=== PATIENT | male | born 1965 | race Caucasian/White ===

== ENCOUNTER 2022-05-30 10:46 | Inpatient (IN) ==
--- NOTE | 2022-05-30 11:32 | Emergency Department Note ---
Impression & Plan Acute HFrEF (heart failure with reduced ejection fraction), Cardiomyopathy ED Provider Note Name: BREE GARCIA Age: 57 Sex: M Arrives Via: Walk-In Informant: Patient, Brother ED Provider: Juan Robledo MD Chief Complaint: Fluid overload Impression: As per impressions above Medical Decision Making: Pleasant 57-year-old gentleman with a history of autism and no real significant past medical issues who was seen by PCP and then by cardiology who has significant concerns for acute cardiomyopathy with congestive heart failure. Echo was done prior to arrival by cards. They sent him to the ER for evaluation of hospitalization. Patient is in no distress his vitals are okay and he is not having any significant shortness of breath while sitting in bed. Is slightly fluid overloaded by examination. Patient has no history of PE or DVT and has no calf pain or swelling or reason to suspect this is PE related. Hospitalist in to see patient and patient stable throughout. Prior Medical Record and Triage/Nursing Notes reviewed by Me External chart review of outpatient records including recent holiday detector operator appointment reviewed by me Differentials:CHF, cardiomyopathy, pneumonia, electrolyte imbalance, anemia, infectious etiology amongst many other pathologies considered Vital Signs: reviewed and remarkable for no significant abnormalities Interventions: Defer to hospitalist service Labs:Reviewed and remarkable for mildly elevated BNP Imagin view chest x-ray as per my interpretation mild congestive failure bilaterally with enlarged heart. EKG:As per my interpretation. Indication shortness of breath. Normal sinus rhythm at 72 bpm with a QTc of 431. There are no ectopy no ischemia. No previous EKG to compare Cardiac/Tele Monitoring: Cardiac Monitoring: An Order was placed for continuous cardiac monitoring. The monitor shows a rate of 70 with a normal sinus rhythm. Consults:Hospitalist Plan: Disposition:Hospitalization. Condition: Good History of Present Illness:57-year-old gentleman arrives for evaluation of fluid overload. Patient has not been following with a provider for quite some time he was seen by PCP who referred him to holiday detector operator due to worsening swelling. He was seen by cardiology this morning and advised to emergently go to ER for evaluation. Concern for severe fluid overload and holiday detector operator have requested patient be admitted for work-up and management. Patient notes he was sick a few days ago and feeling pretty ill but has resolved. He gets short of breath with exertion and sometimes short of breath when he is lying flat. Has not been taking any medications. He was just prescribed a Lasix which he did take this morning after picking it up. Denies any chest pain, syncope, abdominal pain, back pain or other concerning signs or symptoms. No cardiac history but does have a family cardiac history. Past History:Autism Home Medications:Was just prescribed Lasix and lisinopril and potassium Allergies:No known drug allergies Vitals:Blood Pressure: 135/84, Pulse 86, RR 20, T 36.5C, O2 96% on RA Physical Exam: GENERAL: Patient is tired appearing and in minimal distress. EYES: No scleral icterus, unremarkable pupils. ENT: Mucous membranes moist, no nasal congestion. NECK: No masses appreciated, nomeningismus, trachea is midline. RESPIRATORY: No dyspnea. Clear to auscultation and equal bilaterally. No wheeze, no rhonchi. CARDIOVASCULAR: Regular rate and rhythm.No murmurs, rubs, gallops appreciated. GASTROINTESTINAL: Abdomen soft, non-tender, no peritonitis. EXTREMITIES: Normal motion all extremities, no cyanosis, 2+ edema. NEUROLOGIC: Alert and oriented, no acute motor or sensory deficits, no focal weakness, cranial nerves grossly intact. SKIN: No rash, no jaundice, no diaphoresis. PSYCH: Appropriate GCS: 15 ED Course: Times/Reassessments: Stable no distress breathing comfortably and agreeable to plan for hospitalization. Juan Robledo MD Past Med/Surg History Medical History No pertinent past medical history Surgical History No pertinent past surgical history Family History Other Coronary heart disease Hx of heart bypass surgery Social History Smoking Status: Never smoker Second Hand Exposure: No; Do You Dip or Chew Tobacco: No; Tobacco Cessation Education Requested by Patient: No Hx Alcohol Use: No Hx Substance Use: No Preferred Language: Zambian Communication Ability: Effective Instrument Lens Generator Required: No Beliefs That Will Affect Care: None marital status: Current Living Situation: Family Other Information That Helps Us Care for You: No Feels Safe at Home: Yes Safety Concerns: Feels Safe At This Time Assistive Devices: Glasses Allergies Allergies Allergy/AdvReac Type Severity Reaction Status Date / Time No Known Allergies Allergy Verified 05/30/22 11:55 Home Meds Home Medications Medication Instructions Recorded Confirmed furosemide 20 mg tablet (Lasix) 20 mg PO QAM 05/30/22 05/30/22 lisinopril 2.5 mg tablet 2.5 mg PO QAM 05/30/22 05/30/22 potassium chloride 10 mEq 10 meq PO QAM 05/30/22 05/30/22 tablet,extended release Results & Data (ED) Vital Signs Vital Signs - 24 hr 05/30/22 10:49 05/30/22 11:55 Temperature 36.5 C Temperature Source Skin Pulse Rate 86 Pulse Rate [Apical] 77 Respiratory Rate 20 22 Respiratory Effort / Characteristics Non-Labored Spontaneous Respiratory Depth Normal Respiratory Pattern Regular Blood Pressure 135/84 Blood Pressure [Left Arm] 138/86 Blood Pressure Mean 101 Blood Pressure Mean [Left Arm] 103 Pulse Oximetry 96 94 Oxygen Delivery Method Room Air Room Air Sepsis Recent Fever Within 48 Hours No Sepsis New/Unexplained Change in Mental Status N/A Sepsis Action Taken by Nursing No Action Required Laboratory Data 05/30/22 11:34 05/30/22 11:34 Lab Results 05/30/22 05/30/22 05/30/22 Range/Units 11:30 11:30 11:34 WBC 8.17 (4.8-10.8) K/ul RBC 5.13 (4.70-6.10) M/uL Hgb 14.1 (14.0-18.0) g/dl Hct 41.4 L (42.0-52.0) % MCV 80.7 (80.0-100.0) fL MCH 27.5 (25.0-34.0) pg MCHC 34.1 (32.0-36.0) g/dL RDW Std Deviation 39.6 (36.4-46.3) fL RDW Coeff of Junito 13.5 (11.5-14.5) % Plt Count 289 (130-400) K/uL MPV 8.9 L (9.4-12.4) fL Immature Gran % (Auto) 0.4 % Neut % (Auto) 54.2 % Lymph % (Auto) 31.1 % Wheeler % (Auto) 9.8 % Eos % (Auto) 4.0 % Baso % (Auto) 0.5 % Neut # (Auto) 4.43 (1.40-6.50) K/uL Lymph # (Auto) 2.54 (1.2-3.4) K/uL Wheeler # (Auto) 0.80 H (0.11-0.59) K/uL Eos # (Auto) 0.33 (0-0.50) K/uL Baso # (Auto) 0.04 (0-0.2) K/uL Immature Gran # (Auto) 0.03 (0.01-0.20) K/uL PT (9.0-12.0) Seconds INR (0.9-1.1) APTT (21.0-31.0) Seconds PTT Ratio Sodium (136-145) mmol/L Potassium (3.5-5.1) mmol/L Chloride (98-107) mmol/L Carbon Dioxide (21-32) mmol/L Anion Gap (3-11) BUN (6-23) mg/dl Creatinine (0.6-1.4) mg/dl Est Cr Clr Drug Dosing ml/min Est GFR ( Amer) ml/min Est GFR (Non-Af Amer) ml/min BUN/Creatinine Ratio (10-20) Glucose (70-99(Fasting)) mg/dl Calcium (8.6-10.3) mg/dl Phosphorus (2.5-4.9) mg/dl Magnesium (1.7-2.4) mg/dl Total Bilirubin (0.2-1.0) mg/dl Direct Bilirubin (0-0.2) mg/dl AST (13-39) U/L ALT (7-52) U/L Alkaline Phosphatase (34-104) U/L Troponin I High Sens (0-20) pg/ml B-Natriuretic Peptide (0-100) pg/ml Total Protein (6.0-8.3) gm/dl Albumin (3.4-5.0) gm/dl Lipase (11-82) U/L TSH (0.300-4.500) uIu/ml Urine Color Yellow Urine Appearance Clear (Clear) Urine pH 5.0 (4.5-7.5) Ur Specific [place] 1.012 (1.000-1.030) Urine Protein Negative (Negative) Urine Glucose (UA) Negative (Negative) Urine Ketones Negative (Negative) Urine Blood Negative (Negative) Urine Nitrite Negative (Negative) Urine Bilirubin Negative (Negative) Urine Urobilinogen Negative (Negative) Ur Leukocyte Esterase Negative (Negative) SARS-CoV-2 (PCR) NEGATIVE (Negative) Influenza Type A (PCR) Negative (Neg) Influenza Type B (PCR) Negative (Neg) RSV (RT-PCR) Negative (Neg) 05/30/22 05/30/22 05/30/22 Range/Units 11:34 11:34 11:34 WBC (4.8-10.8) K/ul RBC (4.70-6.10) M/uL Hgb (14.0-18.0) g/dl Hct (42.0-52.0) % MCV (80.0-100.0) fL MCH (25.0-34.0) pg MCHC (32.0-36.0) g/dL RDW Std Deviation (36.4-46.3) fL RDW Coeff of Junito (11.5-14.5) % Plt Count (130-400) K/uL MPV (9.4-12.4) fL Immature Gran % (Auto) % Neut % (Auto) % Lymph % (Auto) % Wheeler % (Auto) % Eos % (Auto) % Baso % (Auto) % Neut # (Auto) (1.40-6.50) K/uL Lymph # (Auto) (1.2-3.4) K/uL Wheeler # (Auto) (0.11-0.59) K/uL Eos # (Auto) (0-0.50) K/uL Baso # (Auto) (0-0.2) K/uL Immature Gran # (Auto) (0.01-0.20) K/uL PT 11.1 (9.0-12.0) Seconds INR 1.0 (0.9-1.1) APTT 32.5 H (21.0-31.0) Seconds PTT Ratio 1.2 Sodium 135 L (136-145) mmol/L Potassium 3.9 (3.5-5.1) mmol/L Chloride 105 (98-107) mmol/L Carbon Dioxide 22 (21-32) mmol/L Anion Gap 8 (3-11) BUN 16 (6-23) mg/dl Creatinine 1.20 (0.6-1.4) mg/dl Est Cr Clr Drug Dosing 85.6 ml/min Est GFR ( Amer) 76.8 ml/min Est GFR (Non-Af Amer) 66.3 ml/min BUN/Creatinine Ratio 13.3 (10-20) Glucose 116 H (70-99(Fasting)) mg/dl Calcium 9.1 (8.6-10.3) mg/dl Phosphorus 3.3 (2.5-4.9) mg/dl Magnesium 2.0 (1.7-2.4) mg/dl Total Bilirubin 0.4 (0.2-1.0) mg/dl Direct Bilirubin 0.1 (0-0.2) mg/dl AST 19 (13-39) U/L ALT 19 (7-52) U/L Alkaline Phosphatase 74 (34-104) U/L Troponin I High Sens 7.2 (0-20) pg/ml B-Natriuretic Peptide 34 (0-100) pg/ml Total Protein 7.4 (6.0-8.3) gm/dl Albumin 4.2 (3.4-5.0) gm/dl Lipase 29 (11-82) U/L TSH (0.300-4.500) uIu/ml Urine Color Urine Appearance (Clear) Urine pH (4.5-7.5) Ur Specific [place] (1.000-1.030) Urine Protein (Negative) Urine Glucose (UA) (Negative) Urine Ketones (Negative) Urine Blood (Negative) Urine Nitrite (Negative) Urine Bilirubin (Negative) Urine Urobilinogen (Negative) Ur Leukocyte Esterase (Negative) SARS-CoV-2 (PCR) (Negative) Influenza Type A (PCR) (Neg) Influenza Type B (PCR) (Neg) RSV (RT-PCR) (Neg) 05/30/22 Range/Units 11:34 WBC (4.8-10.8) K/ul RBC (4.70-6.10) M/uL Hgb (14.0-18.0) g/dl Hct (42.0-52.0) % MCV (80.0-100.0) fL MCH (25.0-34.0) pg MCHC (32.0-36.0) g/dL RDW Std Deviation (36.4-46.3) fL RDW Coeff of Junito (11.5-14.5) % Plt Count (130-400) K/uL MPV (9.4-12.4) fL Immature Gran % (Auto) % Neut % (Auto) % Lymph % (Auto) % Wheeler % (Auto) % Eos % (Auto) % Baso % (Auto) % Neut # (Auto) (1.40-6.50) K/uL Lymph # (Auto) (1.2-3.4) K/uL Wheeler # (Auto) (0.11-0.59) K/uL Eos # (Auto) (0-0.50) K/uL Baso # (Auto) (0-0.2) K/uL Immature Gran # (Auto) (0.01-0.20) K/uL PT (9.0-12.0) Seconds INR (0.9-1.1) APTT (21.0-31.0) Seconds PTT Ratio Sodium (136-145) mmol/L Potassium (3.5-5.1) mmol/L Chloride (98-107) mmol/L Carbon Dioxide (21-32) mmol/L Anion Gap (3-11) BUN (6-23) mg/dl Creatinine (0.6-1.4) mg/dl Est Cr Clr Drug Dosing ml/min Est GFR ( Amer) ml/min Est GFR (Non-Af Amer) ml/min BUN/Creatinine Ratio (10-20) Glucose (70-99(Fasting)) mg/dl Calcium (8.6-10.3) mg/dl Phosphorus (2.5-4.9) mg/dl Magnesium (1.7-2.4) mg/dl Total Bilirubin (0.2-1.0) mg/dl Direct Bilirubin (0-0.2) mg/dl AST (13-39) U/L ALT (7-52) U/L Alkaline Phosphatase (34-104) U/L Troponin I High Sens (0-20) pg/ml B-Natriuretic Peptide (0-100) pg/ml Total Protein (6.0-8.3) gm/dl Albumin (3.4-5.0) gm/dl Lipase (11-82) U/L TSH 2.528 (0.300-4.500) uIu/ml Urine Color Urine Appearance (Clear) Urine pH (4.5-7.5) Ur Specific [place] (1.000-1.030) Urine Protein (Negative) Urine Glucose (UA) (Negative) Urine Ketones (Negative) Urine Blood (Negative) Urine Nitrite (Negative) Urine Bilirubin (Negative) Urine Urobilinogen (Negative) Ur Leukocyte Esterase (Negative) SARS-CoV-2 (PCR) (Negative) Influenza Type A (PCR) (Neg) Influenza Type B (PCR) (Neg) RSV (RT-PCR) (Neg) Administered Medications Aspirin (Aspirin 81 Mg Ectab) 81 mg PO [facility] Stop: 06/30/22 10:29 Last Admin: 05/31/22 10:42 Dose: 81 mg Documented By: JANET Furosemide (Furosemide 40 Mg/4 Ml Vial) 40 mg IV DAILY [facility] Stop: 06/30/22 08:59 Last Admin: 05/31/22 08:41 Dose: 40 mg Documented By: JANET Heparin Sodium (Porcine) (Heparin Sod 5,000 Unit/0.5 Ml Vial) 5,000 units SQ Q8 [facility] Stop: 06/29/22 13:59 Last Admin: 05/31/22 13:20 Dose: Not Given Documented By: Admin: 05/31/22 06:13 Dose: 5,000 units Documented By: Admin: 05/30/22 21:11 Dose: 5,000 units Documented By: Admin: 05/30/22 14:30 Dose: 5,000 units Documented By: DAVID Lisinopril (Lisinopril 2.5 Mg Tab) 2.5 mg PO [facility] Stop: 06/30/22 08:59 Last Admin: 05/31/22 08:42 Dose: 2.5 mg Documented By: JANET Metoprolol Succinate (Metoprolol Succ 25mg Ext Rel Tab) 12.5 mg PO [facility] Stop: 06/30/22 10:29 Last Admin: 05/31/22 10:42 Dose: 12.5 mg Documented By: JANET Discontinued Medications Fentanyl Citrate (Fentanyl Citrate Pf 100 Mcg/2 Ml Vial) Confirm Administered Dose 100 mcg .ROUTE .[facility] Stop: 05/31/22 12:23 Last Increment: 05/31/22 13:02 Dose: 50 mcg Documented By: KARIE Furosemide (Furosemide 40 Mg/4 Ml Vial) 40 mg IV ONE ONE Stop: 05/30/22 12:40 Last Admin: 05/30/22 13:14 Dose: 40 mg Documented By: ML Furosemide (Furosemide Inj 20 Mg/2 Ml Vial) 20 mg IV DAILY@1700 [facility] Stop: 06/29/22 16:59 Last Admin: 05/30/22 16:13 Dose: 20 mg Documented By: DAVID Heparin Sodium (Porcine) (Heparin (Porcine) 1000 Unit/Ml 10 Ml (Director Print Use Only)) Confirm Administered Dose 10,000 units .ROUTE .STK-MED ONE Stop: 05/31/22 12:22 Last Admin: 05/31/22 13:01 Dose: 5,000 units Documented By: JFC Heparin Sodium/Sodium Chloride (Heparin In Nss Infusion 1000 Unit/500 Ml (2 U/Ml) Bag) Confirm Administered Dose 3,000 units IV .STK-MED ONE Stop: 05/31/22 12:23 Last Admin: 05/31/22 13:02 Dose: 3,000 units Documented By: ALMA DELIA Midazolam HCl (Midazolam Hcl 1 Mg/Ml 2ml Vial) Confirm Administered Dose 2 mg .ROUTE .STK-MED ONE Stop: 05/31/22 12:22 Last Increment: 05/31/22 13:02 Dose: 1 mg Documented By: KARIE Nicardipine HCl (Nicardipine Hcl Inj 2.5 Mg/Ml 10 Ml Amp) Confirm Administered Dose 25 mg .ROUTE .STK-MED ONE Stop: 05/31/22 12:22 Last Admin: 05/31/22 13:02 Dose: 25 mg Documented By: ALMA DELIA Nitroglycerin/Dextrose (Nitroglycerin/D5w 100mcg/Ml 20ml Syr) Confirm Administered Dose 2,000 mcg .ROUTE .STK-MED ONE Stop: 05/31/22 12:23 Last Admin: 05/31/22 13:03 Dose: 2,000 mcg Documented By: ALMA DELIA Potassium Chloride (Potassium Chloride Crtab 20 Meq Tabcr) 20 meq PO NOW STA Stop: 05/30/22 12:40 Last Admin: 05/30/22 13:14 Dose: 20 meq Documented By: ISSA Potassium Chloride (Potassium Chloride Crtab 20 Meq Tabcr) 20 meq PO QAM [facility] Stop: 06/30/22 08:59 Last Admin: 05/31/22 08:42 Dose: 20 meq Documented By: LDS Imaging Data Radiologist's Impression: Chest X-Ray 05/30/22 11:15 SINGLE VIEW CHEST CLINICAL HISTORY: Fluid overload. FINDINGS: An AP, portable, upright chest radiograph is obtained. No prior studies are available for comparison at the time of dictation. The heart appears mildly enlarged. There is pulmonary vascular congestion. The lungs and pleural spaces are clear noting bibasilar atelectasis. No pneumothorax is seen. The skeletal structures appear osteopenic. The bony thorax is grossly intact. Arthritic change is noted in the shoulders. IMPRESSION: Mild cardiac enlargement with pulmonary vascular congestion. ACT 112: Negative or not required by law. Electronically signed by: Serge Thornton M.D. 05/30/2022 12:00 PM Discharge Plan Visit Data Chief Complaint: Abnormal Labs/Diagnostic Testing Stated Complaint: ABNORMAL TEST, DR REF OVER ED Provider: Juan Robledo Discharge Problem: Acute HFrEF (heart failure with reduced ejection fraction), Cardiomyopathy Patient Disposition: Admitted As Inpatient Discharge Instructions Interventions: ED Discharge Assessment Last Done: 05/30/22 13:35 Cardiomyopathy Qualifiers: Cardiomyopathy type: unspecified Qualified Code(s): I42.9 - Cardiomyopathy, unspecified
[2022-05-30 11:55] LABS: Hematocrit (blood only) 41.4 % (42.0-52.0); Hemoglobin 14.1 g/dl (14.0-18.0); Mean Corpuscular Hemoglobin 27.5 pg (25.0-34.0); Mean Corpuscular Hgb Conc 34.1 g/dL (32.0-36.0); Mean Corpuscular Volume 80.7 fL (80.0-100.0); Mean Platelet Volume 8.9 fL (9.4-12.4); Platelet Count 289 K/uL (130-400); RDW Coefficient of Variation 13.5 % (11.5-14.5); RDW Standard Deviation 39.6 fL (36.4-46.3); Red Blood Count 5.13 M/uL (4.70-6.10); White Blood Count 8.17 K/ul (4.8-10.8)
--- NOTE | 2022-05-30 12:02 | XRay Report ---
SINGLE VIEW CHEST CLINICAL HISTORY: Fluid overload. FINDINGS: An AP, portable, upright chest radiograph is obtained. No prior studies are available for c omparison at the time of dictation. The heart appears mildly enlarged. There is pulmonary vascular co ngestion. The lungs and pleural spaces are clear noting bibasilar atelectasis. No pneumothorax is see n. The skeletal structures appear osteopenic. The bony thorax is grossly intact. Arthritic change is noted in the shoulders. IMPRESSION: Mild cardiac enlargement with pulmonary vascular congestion. ACT 112: Negative or not required by law. Electronically signed by: Serge Thornton M.D. 05/30/2022 12:00 PM
--- NOTE | 2022-05-30 12:13 | History & Physical Report ---
Date of Service May 30, 2022 Assessment & Plan (1) Acute HFrEF (heart failure with reduced ejection fraction): Plan This is a 57 M who presents to ED at the referral of cardiology due to new onset cardiomyopathy and acute HFrEF. He is being managed for the following conditions below: Acute HFrEF, right greater than left Cardiomyopathy Outpatient echocardiogram revealed EF 35 to 39%, global hypokinesis and mild mitral insufficiency Initially started on Lasix 20 mg daily, lisinopril 2.5 mg daily and potassium chloride 20 mEq daily, first dose today on 05/30/2022 Seen in cardiology clinic today and referred to ED for IV diuresis Admit to PCU Consult cardiology Lasix 40 mg IV x1 now and 20 mg in the afternoon Strict I's and O's, daily weights -patient educated on the Continue lisinopril, hold oral Lasix Increase daily KCl to 20 mEq daily and replete as needed N.p.o. after midnight in event procedure warranted in a.m. A1c and lipid panel in a.m. DVT prophylaxis: Heparin Dispo: Admit to PCU, patient currently living temporarily with brother in [place] Full code PCP: Miryam Pedro MD out of [place] A total of 60 minutes was spent with greater than 50% of that time personally viewing all current laboratory work and diagnostic imaging studies obtained in the ED. Additionally, I was able to view the patients past medication reconciliation and history with direct visualization in the patients chart. Included in the time above, a portion of that time was spent assessing the patient while discussing and collaborating with specialists, if necessary, and making medical decision making on treatment plan. All of the above was collaborated with Dr. Ramos. Please see addendum for further details. [phone] Brother Davon History of Present Illness Chief Complaint: Referred by cardiology. Primary Care Provider: Miryam Pedro MD This is a 57 yr old M who has no significant PMH prior to most recent appointments who presents to ED at the referral of cardiology. He was recently seen by PCP this month due to increased weight gain, sob and abdominal distension. He recently relocated from [place] to live with his brother in [place]. Lab work was performed and an echocardiogram. Echocardiogram reviewed new cardiomyopathy with EF of 35-39% and global hypokinesis. His labwork reviewed cr of 1.2 and mildly elevated TSH. He was starting on lasix 20mg and lisinopril daily. First dose was today. He was referred to cardiology today who referred him to ED due to newly dx acute systolic heart failure. He complains of sniffles, scratchy throat, prob cough with yellow sputum that has since resolved two days ago. He also complains of bloating, intermittent SOB for past 3 months with exertion, and lower extremity swelling. He has gained ~ 20-25lbs. He denies, f/c/s, dizziness, lightheaded, chest pain, sob at rest, n/v/d, abd pain, change in bowel or urinary habits. He does not follow with family doctor regularly. He denies smoking of alcohol and denies excessive salt intake. He does drink mostly coffee, water, tea. +FH of CAD, both parents had CABG in 50s or 60s, one brother had a stroke and another brother currently undergoing cardiac work up. Allergies Allergy/AdvReac Type Severity Reaction Status Date / Time No Known Allergies Allergy Verified 05/30/22 11:55 Home Medications Medication Instructions Recorded Confirmed Type furosemide 20 mg tablet (Lasix) 20 mg PO QAM 05/30/22 05/30/22 History lisinopril 2.5 mg tablet 2.5 mg PO QAM 05/30/22 05/30/22 History potassium chloride 10 mEq 10 meq PO QAM 05/30/22 05/30/22 History tablet,extended release Past Med/Surg History Medical History (Updated 05/30/22 @ 13:35 by Juan Robledo MD) No pertinent past medical history Surgical History (Updated 05/30/22 @ 12:16 by Radha Hansen PA-C) No pertinent past surgical history Family History (Updated 05/30/22 @ 12:11 by Radha Hansen PA-C) Other Coronary heart disease Hx of heart bypass surgery Social History (Updated 05/30/22 @ 12:11 by Radha Hansen PA-C) Smoking Status: Never smoker Second Hand Exposure: No; Do You Dip or Chew Tobacco: No; Tobacco Cessation Education Requested by Patient: No Hx Alcohol Use: No Hx Substance Use: No Preferred Language: South [place]ese Communication Ability: Effective 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 Ramos addendum for physical exam findings. Results & Data Results & Data Vital Signs (Past 12 Hours) Vital Signs Temp Pulse Pulse Resp BP BP Pulse Ox 05/30/22 11:55 77 22 138/86 94 05/30/22 10:49 36.5 C 86 20 135/84 96 O2 Del Method 05/30/22 11:55 Room Air 05/30/22 10:49 Room Air Diagnostic Findings Chest X-Ray 05/30/22 11:15 SINGLE VIEW CHEST CLINICAL HISTORY: Fluid overload. FINDINGS: An AP, portable, upright chest radiograph is obtained. No prior studies are available for comparison at the time of dictation. The heart appears mildly enlarged. There is pulmonary vascular congestion. The lungs and pleural spaces are clear noting bibasilar atelectasis. No pneumothorax is seen. The skeletal structures appear osteopenic. The bony thorax is grossly intact. Arthritic change is noted in the shoulders. IMPRESSION: Mild cardiac enlargement with pulmonary vascular congestion. ACT 112: Negative or not required by law. Electronically signed by: Serge Thornton M.D. 05/30/2022 12:00 PM ECG Rate (beats per minute): 72 Rhythm: normal sinus Additional Comments: inferior T wave inversions III, AVF COVID-19 Results Results COVID-19 Adm Lab Results: RBC 5.13 M/uL (4.70-6.10) 05/30/22 WBC 8.17 K/ul (4.8-10.8) 05/30/22 Hgb 14.1 g/dl (14.0-18.0) 05/30/22 Hct 41.4 % (42.0-52.0) L 05/30/22 Plt Count 289 K/uL (130-400) 05/30/22 Neutrophils (%) (Auto) 54.2 % 05/30/22 Lymphocytes (%) (Auto) 31.1 % 05/30/22 Monocytes # (Auto) 0.80 K/uL (0.11-0.59) H 05/30/22 Eosinophils # (Auto) 0.33 K/uL (0-0.50) 05/30/22 Immature Granulocyte % (Auto) 0.4 % 05/30/22 Neutrophils # (Auto) 4.43 K/uL (1.40-6.50) 05/30/22 Lymphocytes # (Auto) 2.54 K/uL (1.2-3.4) 05/30/22 Monocytes # (Auto) 0.80 K/uL (0.11-0.59) H 05/30/22 Eosinophils # (Auto) 0.33 K/uL (0-0.50) 05/30/22 Basophils # (Auto) 0.04 K/uL (0-0.2) 05/30/22 Immature Granulocyte # (Auto) 0.03 K/uL (0.01-0.20) 3 Na 135 mmol/L (136-145) L 05/30/22 K 3.9 mmol/L (3.5-5.1) 05/30/22 Cl 105 mmol/L (98-107) 05/30/22 CO2 22 mmol/L (21-32) 05/30/22 Anion Gap 8 (3-11) 05/30/22 BUN 16 mg/dl (6-23) 05/30/22 Creatinine 1.20 mg/dl (0.6-1.4) 05/30/22 BUN/Creatinine Ratio 13.3 (10-20) 05/30/22 Glucose Level 116 mg/dl (70-99(Fasting)) H 05/30/22 Ca 9.1 mg/dl (8.6-10.3) 05/30/22 Phosphorus Level 3.3 mg/dl (2.5-4.9) 05/30/22 Total Bilirubin 0.4 mg/dl (0.2-1.0) 05/30/22 Direct Bilirubin 0.1 mg/dl (0-0.2) 05/30/22 AST/SGOT 19 U/L (13-39) 05/30/22 ALT/SGPT 19 U/L (7-52) 05/30/22 Alkaline Phosphatase 74 U/L (34-104) 05/30/22 Total Protein 7.4 gm/dl (6.0-8.3) 05/30/22 Albumin 4.2 gm/dl (3.4-5.0) 05/30/22 PTT 32.5 Seconds (21.0-31.0) H 05/30/22 INR 1.0 (0.9-1.1) 05/30/22 COVID-19 PCR NEGATIVE (Negative) 05/30/22 Influenza Virus Type A (PCR) Negative (Neg) 05/30/22 Influenza Virus Type B (PCR) Negative (Neg) 05/30/22 Chest X-Ray 05/30/22 Code Status & VTE Plan Code Status FULL CODE VTE Prophylaxis Plan VTE Prophylaxis will be ordered: Yes Supervising Physician Co-Signing Physician Notes 57 yo M w/ no significant PMH per OP Epic chart, no h/o [place]/stroke per pt was sent from cardio office for "fluid overload". The patient reports some sob w/ activity and intermittent abd bloating since last 3 months, progressive in nature, also reports his feet get swollen sometimes and he can't wear his shoes. Pt reports recent flu like illness that he reports he got over with already. Pt declines any tobacco smoking or use/use of alcohol or recreational drugs. Full code. Labs reviewed, CXR w/ pul vascular congestion. No pl effusion noted on my interpretation. Mild hyponatremia Acute systolic CHF: recent OP ECHO w/ EF of 35-39%. Large sized apical, septal, anteroseptal, and ant wall motion abn w/ akinesis of segments. Lasix 40 mg iv in AM, 20 mg iv in pm, KCL 20 meq today and daily for now. Strict I and O. FR 1800, Low Na diet. NPO midnight. Cardio consult. O2 prn. Hyperglycemia: will get A1C. Upon Exam GENERAL: Alert and oriented x3. NAD, on RA. HEENT: No pallor, no icterus. Pupils equal, round and reactive to light. Oral mucosa moist. NECK: No JVD, no neck masses. HEART: S1 and S2 heard. Regular rate and rhythm. No murmur, no gallop. RESPIRATORY SYSTEM: Normal AP diameter. No accessory muscle use. No wheezing, R>L basal crackles. ABDOMEN: Soft, bowel sounds present, nontender, no distention. CENTRAL NERVOUS SYSTEM: No facial droop. Speech is clear. Obeys simple commands. Moves extremities. EXTREMITIES: 1-2 + BLE edema, no erythema seen. Dry feet. I have seen and examined the patient and have discussed the case with the provider above. I agree with the assessment and plan as stated.
[2022-05-30 12:14] LABS: Partial Thromboplastin Ratio 1.2; Partial Thromboplastin Time 32.5 Seconds (21.0-31.0); Prothrombin Time 11.1 Seconds (9.0-12.0)
[2022-05-30 12:17] LABS: Albumin Level 4.2 gm/dl (3.4-5.0); Bilirubin Direct 0.1 mg/dl (0-0.2); Bilirubin,Total 0.4 mg/dl (0.2-1.0); Calcium 9.1 mg/dl (8.6-10.3); Potassium 3.9 mmol/L (3.5-5.1)
[2022-05-30 12:20] LABS: Appearance Urine Clear (Clear); Bilirubin Urine Negative (Negative); Blood Urine Negative (Negative); Color Urine Yellow; Glucose Urine UA Negative (Negative); Ketones Urine Negative (Negative); Leukocyte Esterase Urine Negative (Negative); Nitrite Urine Negative (Negative); Protein Urine Negative (Negative); Specific Gravity Urine 1.012 (1.000-1.030); Urobilinogen Urine Negative (Negative)
[2022-05-30 12:23] LABS: BUN Creatinine Ratio 13.3 (10-20); Creatinine Clr Calc Pharmacy 85.6 ml/min; Est GFR (African American) 76.8 ml/min; Est GFR (Non-African American) 66.3 ml/min; Phosphorus 3.3 mg/dl (2.5-4.9); Total Protein 7.4 gm/dl (6.0-8.3)
[2022-05-30 12:27] LABS: Troponin I High Sensitivity 7.2 pg/ml (0-20)
[2022-05-30 12:36] LABS: Basophils # (auto) 0.04 K/uL (0-0.2); Basophils % (auto) 0.5 %; Eosinophils # (auto) 0.33 K/uL (0-0.50); Immature Granulocytes # (auto) 0.03 K/uL (0.01-0.20); Immature Granulocytes % (auto) 0.4 %; Lymphocytes # (auto) 2.54 K/uL (1.2-3.4); Lymphocytes % (auto) 31.1 %; Monocytes % (auto) 9.8 %; Neutrophils # (auto) 4.43 K/uL (1.40-6.50); Neutrophils % (auto) 54.2 %
[2022-05-30] MEDS ORDERED: POTASSIUM CHLORIDE CRTAB 20 MEQ TABCR PO STA (12:39)
[2022-05-30] MEDS ORDERED: FUROSEMIDE 40 MG/4 ML VIAL IV ONE (12:39)
[2022-05-30 13:09] LABS: Influenza A virus by PCR Negative (Neg); Influenza B virus by PCR Negative (Neg); RSV by PCR Negative (Neg); SARS CoV2 RNA(COVID-19) Ceph NEGATIVE (Negative)
--- NOTE | 2022-05-30 13:53 | Electrocardiogram Report ---
Test Reason : Blood Pressure : / mmHG Vent. Rate : 072 BPM Atrial Rate : 072 BPM P-R Int : 146 ms QRS Dur : 104 ms QT Int : 394 ms P-R-T Axes : 056 -34 -14 degrees QTc Int : 431 ms Normal sinus rhythm Left axis deviation Minimal voltage criteria for LVH, may be normal variant Abnormal ECG No previous ECGs available Confirmed by Eliel Buchanan ([id number]) on 05/30/2022 1:53:19 PM Referred By: Confirmed By:Eliel Buchanan
[2022-05-30] MEDS ORDERED: ONDANSETRON INJ 2 MG/ML 2 ML VIAL IV PRN (14:00)
[2022-05-30] MEDS ORDERED: MAGNESIUM HYDROXIDE SUSP 30 ML UDC PO PRN (14:00)
[2022-05-30] MEDS ORDERED: POLYETHYLENE (MIRALAX) 17 GM PACK PO PRN (14:00)
[2022-05-30] MEDS ORDERED: ACETAMINOPHEN 325 MG TAB PO PRN (14:00)
[2022-05-30] MEDS ORDERED: ALUMINUM/MAGNESIUM SUSP 30 ML UDC PO PRN (14:00)
[2022-05-30] MEDS: HEPARIN SOD 5,000 UNIT/0.5 ML VIAL SQ SCH ×2 (14:30→21:11)
[2022-05-30] MEDS ORDERED: FUROSEMIDE INJ 20 MG/2 ML VIAL IV SCH (17:00)
[2022-05-30] MEDS ORDERED: FUROSEMIDE 20 MG TAB PO SCH (17:00)
[2022-05-31 04:41] LABS: Hematocrit (blood only) 41.7 % (42.0-52.0); Hemoglobin 14.3 g/dl (14.0-18.0); Mean Corpuscular Hemoglobin 27.7 pg (25.0-34.0); Mean Corpuscular Hgb Conc 34.3 g/dL (32.0-36.0); Mean Corpuscular Volume 80.8 fL (80.0-100.0); Mean Platelet Volume 8.9 fL (9.4-12.4); Platelet Count 285 K/uL (130-400); RDW Coefficient of Variation 13.6 % (11.5-14.5); Red Blood Count 5.16 M/uL (4.70-6.10); White Blood Count 7.81 K/ul (4.8-10.8)
[2022-05-31 04:55] LABS: Albumin Globulin Ratio 1.1 (0.9-2); BUN Creatinine Ratio 15.9 (10-20); Bilirubin,Total 0.5 mg/dl (0.2-1.0); Chol HDL Ratio 4.7 (0-5); Creatinine Clr Calc Pharmacy 82.1 ml/min; Est GFR (African American) 72.4 ml/min; Est GFR (Non-African American) 62.5 ml/min; Globulin 3.5 gm/dl (2.5-4.0); Potassium 3.6 mmol/L (3.5-5.1); Total Protein 7.5 gm/dl (6.0-8.3)
[2022-05-31 05:37] LABS: Basophils # (auto) 0.06 K/uL (0-0.2); Basophils % (auto) 0.8 %; Eosinophils # (auto) 0.43 K/uL (0-0.50); Eosinophils % (auto) 5.5 %; Immature Granulocytes # (auto) 0.03 K/uL (0.01-0.20); Immature Granulocytes % (auto) 0.4 %; Lymphocytes # (auto) 3.05 K/uL (1.2-3.4); Lymphocytes % (auto) 39.1 %; Monocytes # (auto) 0.62 K/uL (0.11-0.59); Monocytes % (auto) 7.9 %; Neutrophils # (auto) 3.62 K/uL (1.40-6.50); Neutrophils % (auto) 46.3 %
[2022-05-31] MEDS: HEPARIN SOD 5,000 UNIT/0.5 ML VIAL SQ SCH ×3 (06:13→20:59)
[2022-05-31] MEDS ORDERED: FUROSEMIDE 40 MG/4 ML VIAL IV SCH (09:00)
[2022-05-31] MEDS ORDERED: lisinopril 2.5 MG TAB PO SCH (09:00)
[2022-05-31] MEDS ORDERED: POTASSIUM CHLORIDE CRTAB 20 MEQ TABCR PO SCH (09:00)
--- NOTE | 2022-05-31 09:15 | Cardiology Consultation ---
Date of Consultation May 31, 2022 Assessment & Plan (1) Acute HFrEF (heart failure with reduced ejection fraction): (2) NYHA class 3 systolic congestive heart failure with reduced left ventricular function: (3) Electrocardiogram showing normal QRS interval: Plan New onset systolic congestive heart failure, HFrEF Etiology: Unknown, to be determined. NYHA Class III Stage C. Ejection Fraction: 35-39%. Narrow QRS duration Maintaining sinus rhythm Volume Status: Mild hypervolemia, right sided predominately. Investigate etiologies. Labs ordered. NPO for diagnostic cardiac catheterization Continue IV diuresis today, likely switching to oral furosemide in AM of 06/01/2022. Discontinue supplemental potassium. Add aldosterone receptor antagonist, spironolactone 25 mg/day Add low dose evidence based beta-olman, Toprol XL 12.5 mg/day Add ASA 81 mg/day Add statin, atorvastatin 10 mg/day Continue low dose FIOR inhibition, Lisinopril 2.5 mg/day. Supervising Physician Co-Signing Physician Notes I have reviewed the advanced practitioner documentation and agree. I saw and evaluated the patient on date of service referenced in note and have performed the following medically appropriate history and/or exam: newly discovered cardiomyopathy. Does not examine as significantly volume overloaded this AM. Will proceed with cardiac cath today. Further recommendations to follow. History of Present Illness Reason for Consultation: New cardiomyopathy, acute HFrEF Requesting Physician: Tyrone Attending Physician: Alison History of Present Illness Mr. Prosper Pollard is a 57-year-old male who was referred for hospitalization after initial cardiology consultation with Dr. Saenz on May 2022. Information is somewhat difficult to discern. Patient notes living [facility] in an apartment above a garage in [place] and working full-time without difficulty. Approximately 3 months ago he presented to the [facility] ER with low back pain. Limited evaluation was performed. Discomfort attributed to a muscle strain. Patient notes notes being referred to chiropractor with improvement. Due to increased rent as well as ER bills from the evaluation patient notes having trouble making ends meet, ultimately moving live with his brother Davon outside of [place] approximately 1 week ago. It was approximately 4 months ago the patient began to notice lower extremity peripheral edema as well as abdominal bloating. He initially thought issues were secondary to constipation, taking Metamucil without improvement. He then thought about prostate trouble and tried [id number] pills also without improvement. In mid May, patient established with the [facility]. Work-up included resting echocardiography on May 21, 2022 which revealed a dilated left ventricle with segmental wall motion abnormalities consistent with conduction changes, left bundle branch block, with otherwise global hypokinesis, moderate to severe left ventricular systolic dysfunction, ejection fraction 35 to 39%, mild mitral insufficiency. Abnormal resting echocardiography led to initiation of furosemide as well as low-dose lisinopril and cardiology consultation, all of which were initiated/obtained on May 30, 2022. Abdominal ultrasound revealed hepatic steatosis; no ascites. Chest x-ray showed no acute pulmonary abnormality. CBC and comprehensive metabolic panel were within normal limits. TSH was mildly elevated. Notes gradual weight gain of approximately 25 pounds over the last 6 months, since . Notes that his brother family had URI symptoms which he also contracted last week. Patient currently has a cough productive of phlegm, without fevers or chills. He notes having a heart murmur as a child. Inactive/sedentary. Poor exercise tolerance. Chest pressure. Dyspnea on exertion. Poor sleep habits with loud snoring noted. Denies history of CAD, NC, CHF, arrhythmia, rheumatic fever, or scarlet fever Past Medical and Surgical History: See above. Family History: Both parents underwent coronary bypass grafting, brother with mitral valve disease 2nd brother with history of stroke Social History: Nonsmoker. Prior alcohol, abstaining of late. No illegal drug use. See above. Allergies Allergy/AdvReac Type Severity Reaction Status Date / Time No Known Allergies Allergy Verified 05/30/22 11:55 Home Medications Medication Instructions Recorded Confirmed Type aspirin 81 mg tablet,delayed 81 mg PO QAM #30 tabs 06/01/22 Rx release atorvastatin 10 mg tablet 10 mg PO QAM #30 tabs 06/01/22 Rx furosemide 20 mg tablet (Lasix) 20 mg PO QAM #30 tabs 06/01/22 Rx lisinopril 2.5 mg tablet 2.5 mg PO QAM #30 tabs 06/01/22 Rx metoprolol succinate 25 mg 12.5 mg PO QAM #30 tabs 06/01/22 Rx tablet,extended release 24 hr spironolactone 25 mg tablet 12.5 mg PO QAM #30 tabs 06/01/22 Rx Patient History Medical History No pertinent past medical history Surgical History No pertinent past surgical history Family History Other Coronary heart disease Hx of heart bypass surgery Social History Smoking Status: Never smoker Second Hand Exposure: No; Do You Dip or Chew Tobacco: No; Tobacco Cessation Education Requested by Patient: No Hx Alcohol Use: No Hx Substance Use: No Preferred Language: Indonesian Communication Ability: Effective 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 See above. Otherwise negative or noncontributory. Physical Exam Physical Exam: General: A&Ox3. NAD. HENT: Normocephalic. Atraumatic. Eyes: PER. Conjunctiva pink, sclera clear. Neck: No carotid bruits. JVD. HJR. Heart: RRR, 80 bpm. Soft systolic murmur. No diastolic murmur. No rub. Lungs: Left sided rhonchi, improved with cough. No wheeze. Abdomen: Large abdomen. +BS. Soft. Nontender. No fluid wave. No masses or organomegaly. Extremities: Mild left greater than right lower extremity edema. No clubbing. No cyanosis. Limited neurological examination is without focal deficits. Pulses: radial=2/4, posterior tibial=1/4. Results & Data Vital Signs (Past 12 Hours) Vital Signs Temp Pulse Pulse Resp BP Pulse Ox O2 Del Method 05/31/22 08:52 Room Air 05/31/22 08:50 36.5 C 80 16 96 Room Air 05/31/22 04:00 36.4 C L 88 12 123/72 94 Room Air 05/31/22 00:00 87 05/31/22 00:00 37 C 87 15 129/77 95 Room Air Laboratory Results Cardiac Enzymes 05/30/22 05/30/22 05/31/22 Range/Units 11:34 11:34 04:19 AST 19 20 (13-39) U/L Troponin I High Sens 7.2 (0-20) pg/ml B-Natriuretic Peptide 34 (0-100) pg/ml Coagulation 05/30/22 05/30/22 Range/Units 11: 11:34 PT 11.1 (9.0-12.0) Seconds APTT 32.5 H (21.0-31.0) Seconds B-Natriuretic Peptide 34 (0-100) pg/ml Lipids 05/31/22 Range/Units 04:19 Triglycerides 97 (0-150) mg/dl Cholesterol 128 (0-200) mg/dl HDL Cholesterol 27 mg/dl Cholesterol/HDL Ratio 4.7 (0-5) CBC 05/30/22 05/31/22 Range/Units 11: 04:19 WBC 8.17 7.81 (4.8-10.8) K/ul RBC 5.13 5.16 (4.70-6.10) M/uL Hgb 14.1 14.3 (14.0-18.0) g/dl Hct 41.4 L 41.7 L (42.0-52.0) % Plt Count 289 285 (130-400) K/uL Neut # (Auto) 4.43 3.62 (1.40-6.50) K/uL Lymph # (Auto) 2.54 3.05 (1.2-3.4) K/uL Dickson # (Auto) 0.80 H 0.62 H (0.11-0.59) K/uL Eos # (Auto) 0.33 0.43 (0-0.50) K/uL Baso # (Auto) 0.04 0.06 (0-0.2) K/uL Comprehensive Metabolic Panel 05/30/22 05/31/22 Range/Units 11:34 04:19 Sodium 135 L 135 L (136-145) mmol/L Potassium 3.9 3.6 (3.5-5.1) mmol/L Chloride 105 102 (98-107) mmol/L Carbon Dioxide 22 25 (21-32) mmol/L BUN 16 20 (6-23) mg/dl Creatinine 1.20 1.26 (0.6-1.4) mg/dl Glucose 116 H 122 H (70-99(Fasting)) mg/dl Calcium 9.1 9.0 (8.6-10.3) mg/dl Direct Bilirubin 0.1 (0-0.2) mg/dl AST 19 20 (13-39) U/L ALT 19 18 (7-52) U/L Alkaline Phosphatase 74 72 (34-104) U/L Total Protein 7.4 7.5 (6.0-8.3) gm/dl Albumin 4.2 4.0 (3.4-5.0) gm/dl Intake and Output 05/30/22 05/31/22 05/31/22 22:59 06:59 14:59 Output Total 900 / 1200 300 / 1200 Balance -900 / -1200 -300 / -1200 Output: Urine 900 / 1200 300 / 1200 Other: # Unmeasured Voids 1 Diagnostic Findings Echocardiogram May 21, 2022 (as per Dr. Saenz): The left ventricle is mildly dilated and upper limits of normal in thickness. There are segmental wall motion abnormalities consistent with conduction changes, left bundle-branch block with otherwise global hypokinesis and moderate to severe left ventricular dysfunction EF 35 -39%. There is mild mitral insufficiency EKG May 30, 2022: Sinus rhythm at 79 beats per minute with nonspecific ST segment abnormalities T-wave inversion lead 3 and AVF Admission EKG revealed normal sinus rhythm at 72 bpm with left axis deviation, voltage criteria for LVH, QTc 431 ms. QRS duration 104 ms. Continuous monitor tech since admission reveals sinus rhythm predominantly around 80 bpm. No significant bradycardia. No atrial fibrillation or flutter. No ventricular tachycardia.
[2022-05-31 09:23] LABS: Estimated Average Glucose 137 mg/dl; Hemoglobin A1C 6.4 % (4.5-5.6)
[2022-05-31] MEDS: ASPIRIN 81 MG ECTAB PO SCH (10:42)
[2022-05-31] MEDS: METOPROLOL SUCC 25MG EXT REL TAB PO SCH (10:42)
[2022-05-31] MEDS ORDERED: HEPARIN (PORCINE) 1000 UNIT/ML 10 ML (CATH LAB USE ONLY) ONE (12:21)
[2022-05-31] MEDS ORDERED: niCARdipine HCL INJ 2.5 MG/ML 10 ML AMP ONE (12:21)
[2022-05-31] MEDS ORDERED: MIDAZOLAM HCL 1 MG/ML 2ML VIAL ONE (12:21)
[2022-05-31] MEDS ORDERED: fentaNYL citrate PF 100 MCG/2 ML VIAL ONE (12:22)
[2022-05-31] MEDS ORDERED: NITROGLYCERIN/D5W 100MCG/ML 20ML SYR ONE (12:22)
--- NOTE | 2022-05-31 12:24 | Pre Anesthesia Assessment ---
Date of Service May 31, 2022 Pre Sedation Assessment Vital Signs Temp Pulse Pulse Resp BP Pulse Ox O2 Del Method 05/31/22 12:04 73 20 119/83 94 Room Air 05/31/22 11:02 98.2 F 78 20 126/64 93 Room Air 05/31/22 08:52 Room Air 05/31/22 08:50 97.7 F 80 16 96 Room Air 05/31/22 04:00 97.5 F L 88 12 123/72 94 Room Air 05/31/22 00:00 87 05/31/22 00:00 98.6 F 87 15 129/77 95 Room Air 05/30/22 20:00 Room Air 05/30/22 14:00 Room Air 05/30/22 14:00 87 05/30/22 14:02 98.6 F 88 20 157/91 H 99 Room Air 05/30/22 13:32 154/93 H 05/30/22 13:14 72 20 176/102 H 96 Room Air Cardiovascular RRR, no murmur, no edema Respiratory normal respiratory effort, lungs clear to auscultation Pre-Sedation Airway Assessment Smoking Status: Never smoker Hx Sleep Apnea: No Short, Thick Neck: No Thyromental Distance: > or= 3.5 Finger Breadths Oral Cavity: + WNL Mallampati Class: I ASA: ASA3 NPO Status Date of Last Intake of Fluids: 05/31/22 Time of Last Intake of Fluids: 07:00 Last Oral Intake of Fluids Comment: sip with pills Date of Last Intake of Solid Food: 05/30/22 Procedure Planning Contraindications for Sedation: none Current Medications Reviewed: Yes Notes The planned sedation has been discussed with the patient. Informed Consent was obtained. I have identified the patient, determined the appropriateness of sedation and have assessed the patient immediately prior to the procedure. All medicine(s) and interventions are by my order.
--- NOTE | 2022-05-31 12:40 | Hospitalist Progress Note ---
Date of Service May 31, 2022 Assessment & Plan (1) Acute HFrEF (heart failure with reduced ejection fraction): Plan This is a 57 M who presents to ED at the referral of cardiology due to new onset cardiomyopathy and acute HFrEF. He is being managed for the following conditions below: Acute on chronic systolic heart failure NYHA class 3 systolic congestive heart failure with reduced left ventricular function Outpatient echocardiogram revealed EF 35 to 39%, global hypokinesis and mild mitral insufficiency Seen in cardiology clinic today and referred to ED for IV diuresis Chest x-ray personally reviewed; mild pulmonary vascular congestion was seen. EKG personally reviewed; normal sinus rhythm with no significant ST or T wave changes. CBC and CMP personally reviewed; no significant finding. Discussed with cardiology; patient to undergo cardiac cath today Currently, he is on Lasix IV daily for diuresis. Also started on guideline based medical management of HFrEF with metoprolol, lisinopril and Aldactone. LDL of 82; on Lipitor Strict input and output monitoring Daily weights Prediabetes: HbA1c of 6.4%; discussed with patient regarding carb controlled diet. Will provide a primary care follow-up. DVT prophylaxis: Heparin Dispo: Admit to PCU, patient currently living temporarily with brother in [place] Full code PCP: Miryam Pedro MD out of [place] Admission and Anticipated Discharge Date Admission Date: May 30, 2022 Subjective Patient seen and examined at bedside. He is comfortably lying on the bed; not in any distress. He denies any fever or chills, chest pain or abdominal pain. He is currently saturating well on room air and is afebrile. Review of Systems Review of Systems: All systems reviewed & are unremarkable except as noted in Subjective Physical Exam Physical Exam: Constitutional: WD/WN, vitals as above, NAD, sitting up in bed, pleasant, conversing easily Respiratory: normal respiratory effort, lungs clear to auscultation, no wheeze, rales, rhonchi. Normal insp/exp effort, no accessory muscle use Cardiovascular: RRR, no murmur, no edema Vessels: no JVD or carotid bruit Chest: normal inspection of chest Abdomen: normal bowel sounds, soft, nontender, no hepatosplenomegaly Musculoskeletal: no cyanosis or clubbing, extremities motor strength 5/5. 1+ pitting edema in bilateral lower extremity Skin: no rashes, warm and dry normal turgor Neurologic: PERRL, EOMI, accommodation nl, no face palsy, no dysarthria CN's II- XI intact bilaterally and moves all extremities Psychiatric: A+Ox3, euthymic affect Lymphatic: no cervical or axillary lymphadenopathy : deferred Results & Data Results & Data Vital Signs (Past 12 Hours) Vital Signs Temp Pulse Resp BP Pulse Ox O2 Del Method 05/31/22 12:04 73 20 119/83 94 Room Air 05/31/22 11:02 36.8 C 78 20 126/64 93 Room Air 05/31/22 08:52 Room Air 05/31/22 08:50 36.5 C 80 16 96 Room Air 05/31/22 04:00 36.4 C L 88 12 123/72 94 Room Air Laboratory Results Laboratory Results WBC 7.81 K/ul (4.8-10.8) 05/31/22 04:19 RBC 5.16 M/uL (4.70-6.10) 05/31/22 04:19 Hgb 14.3 g/dl (14.0-18.0) 05/31/22 04:19 Hct 41.7 % (42.0-52.0) L 05/31/22 04:19 MCV 80.8 fL (80.0-100.0) 05/31/22 04:19 MCH 27.7 pg (25.0-34.0) 05/31/22 04:19 MCHC 34.3 g/dL (32.0-36.0) 05/31/22 04:19 RDW Std Deviation 40.0 fL (36.4-46.3) 05/31/22 04:19 RDW Coeff of [place] 13.6 % (11.5-14.5) 05/31/22 04:19 Plt Count 285 K/uL (130-400) 05/31/22 04:19 MPV 8.9 fL (9.4-12.4) L 05/31/22 04:19 Immature Gran % (Auto) 0.4 % 05/31/22 04:19 Neut % (Auto) 46.3 % 05/31/22 04:19 Lymph % (Auto) 39.1 % 05/31/22 04:19 [place] % (Auto) 7.9 % 05/31/22 04:19 Eos % (Auto) 5.5 % 05/31/22 04:19 Baso % (Auto) 0.8 % 05/31/22 04:19 Neut # (Auto) 3.62 K/uL (1.40-6.50) 05/31/22 04:19 Lymph # (Auto) 3.05 K/uL (1.2-3.4) 05/31/22 04:19 [place] # (Auto) 0.62 K/uL (0.11-0.59) H 05/31/22 04:19 Eos # (Auto) 0.43 K/uL (0-0.50) 05/31/22 04:19 Baso # (Auto) 0.06 K/uL (0-0.2) 05/31/22 04:19 Immature Gran # (Auto) 0.03 K/uL (0.01-0.20) 05/31/22 04:19 PT 11.1 Seconds (9.0-12.0) 05/30/22 11:34 INR 1.0 (0.9-1.1) 05/30/22 11:34 APTT 32.5 Seconds (21.0-31.0) H 05/30/22 11:34 PTT Ratio 1.2 05/30/22 11:34 Sodium 135 mmol/L (136-145) L 05/31/22 04:19 Potassium 3.6 mmol/L (3.5-5.1) 05/31/22 04:19 Chloride 102 mmol/L (98-107) 05/31/22 04:19 Carbon Dioxide 25 mmol/L (21-32) 05/31/22 04:19 Anion Gap 8 (3-11) 05/31/22 04:19 BUN 20 mg/dl (6-23) 05/31/22 04:19 Creatinine 1.26 mg/dl (0.6-1.4) 05/31/22 04:19 Est Cr Clr Drug Dosing 82.1 ml/min 05/31/22 04:19 Est GFR ( Amer) 72.4 ml/min 05/31/22 04:19 Est GFR (Non-Af Amer) 62.5 ml/min 05/31/22 04:19 BUN/Creatinine Ratio 15.9 (10-20) 05/31/22 04:19 Glucose 122 mg/dl (70-99(Fasting)) H 05/31/22 04:19 Estimat Average Glucose 137 mg/dl 05/31/22 04:19 Hemoglobin A1c 6.4 % (4.5-5.6) H 05/31/22 04:19 Calcium 9.0 mg/dl (8.6-10.3) 05/31/22 04:19 Phosphorus 3.3 mg/dl (2.5-4.9) 05/30/22 11:34 Magnesium 2.0 mg/dl (1.7-2.4) 05/31/22 04:19 Total Bilirubin 0.5 mg/dl (0.2-1.0) 05/31/22 04:19 Direct Bilirubin 0.1 mg/dl (0-0.2) 05/30/22 11:34 AST 20 U/L (13-39) 05/31/22 04:19 ALT 18 U/L (7-52) 05/31/22 04:19 Alkaline Phosphatase 72 U/L (34-104) 05/31/22 04:19 Troponin I High Sens 7.2 pg/ml (0-20) 05/30/22 11:34 B-Natriuretic Peptide 34 pg/ml (0-100) 05/30/22 11:34 Total Protein 7.5 gm/dl (6.0-8.3) 05/31/22 04:19 Albumin 4.0 gm/dl (3.4-5.0) 05/31/22 04:19 Globulin 3.5 gm/dl (2.5-4.0) 05/31/22 04:19 Albumin/Globulin Ratio 1.1 (0.9-2) 05/31/22 04:19 Triglycerides 97 mg/dl (0-150) 05/31/22 04:19 Cholesterol 128 mg/dl (0-200) 05/31/22 04:19 LDL Cholesterol, Calc 82 mg/dl 05/31/22 04:19 VLDL Cholesterol, Calc 19 mg/dl (0-30) 05/31/22 04:19 HDL Cholesterol 27 mg/dl 05/31/22 04:19 Cholesterol/HDL Ratio 4.7 (0-5) 05/31/22 04:19 Lipase 29 U/L (11-82) 05/30/22 11:34 TSH 2.528 uIu/ml (0.300-4.500) 05/30/22 11:34 Urine Color Yellow 05/30/22 11:30 Urine Appearance Clear (Clear) 05/30/22 11:30 Urine pH 5.0 (4.5-7.5) 05/30/22 11:30 Ur Specific [place] 1.012 (1.000-1.030) 05/30/22 11:30 Urine Protein Negative (Negative) 05/30/22 11:30 Urine Glucose (UA) Negative (Negative) 05/30/22 11:30 Urine Ketones Negative (Negative) 05/30/22 11:30 Urine Blood Negative (Negative) 05/30/22 11:30 Urine Nitrite Negative (Negative) 05/30/22 11:30 Urine Bilirubin Negative (Negative) 05/30/22 11:30 Urine Urobilinogen Negative (Negative) 05/30/22 11:30 Ur Leukocyte Esterase Negative (Negative) 05/30/22 11:30 Nasal Screen MRSA (PCR) Negative (Negative) 05/30/22 14:20 SARS-CoV-2 (PCR) NEGATIVE (Negative) 05/30/22 11:30 Influenza Type A (PCR) Negative (Neg) 05/30/22 11:30 Influenza Type B (PCR) Negative (Neg) 05/30/22 11:30 RSV (RT-PCR) Negative (Neg) 05/30/22 11:30 Impressions Chest X-Ray 05/30/22 11:15 SINGLE VIEW CHEST CLINICAL HISTORY: Fluid overload. FINDINGS: An AP, portable, upright chest radiograph is obtained. No prior studies are available for comparison at the time of dictation. The heart appears mildly enlarged. There is pulmonary vascular congestion. The lungs and pleural spaces are clear noting bibasilar atelectasis. No pneumothorax is seen. The skeletal structures appear osteopenic. The bony thorax is grossly intact. Arthritic change is noted in the shoulders. IMPRESSION: Mild cardiac enlargement with pulmonary vascular congestion. ACT 112: Negative or not required by law. Electronically signed by: Serge Thornton M.D. 05/30/2022 12:00 PM
[2022-05-31 16:18] LABS: Ferritin 48.2 ng/ml (8-388)
--- NOTE | 2022-05-31 17:49 | Post Anesthesia Assessment ---
Date of Service May 31, 2022 Post Sedation Assessment Vital Signs Temp Pulse Pulse Resp BP BP Pulse Ox 05/31/22 15:52 98.6 F 78 18 123/84 94 05/31/22 15:28 75 104/68 93 05/31/22 15:15 98.2 F 05/31/22 15:00 79 125/70 94 05/31/22 14:45 87 128/77 96 05/31/22 14:30 78 20 116/79 95 05/31/22 14:15 68 18 123/84 96 05/31/22 14:00 68 18 129/85 96 05/31/22 13:45 72 15 110/79 95 05/31/22 13:38 72 13 126/77 95 05/31/22 13:19 74 16 167/90 H 05/31/22 12:04 73 20 119/83 94 05/31/22 11:02 98.2 F 78 20 126/64 93 05/31/22 08:52 05/31/22 08:50 97.7 F 80 16 96 05/31/22 04:00 97.5 F L 88 12 123/72 94 05/31/22 00:00 87 05/31/22 00:00 98.6 F 87 15 129/77 95 05/30/22 20:00 O2 Del Method 05/31/22 15:52 Room Air 05/31/22 15:28 Room Air 05/31/22 15:15 05/31/22 15:00 05/31/22 14:45 05/31/22 14:30 05/31/22 14:15 05/31/22 14:00 Room Air 05/31/22 13:45 Room Air 05/31/22 13:38 Room Air 05/31/22 13:19 Room Air 05/31/22 12:04 Room Air 05/31/22 11:02 Room Air 05/31/22 08:52 Room Air 05/31/22 08:50 Room Air 05/31/22 04:00 Room Air 05/31/22 00:00 05/31/22 00:00 Room Air 05/30/22 20:00 Room Air Recovery Score Activity: Moves 4 extremities Respiration: Deep Breath/Cough Circulation: +/-20% PreAnes Value Consciousness: Fully Awake Oxygen Saturation: > 92% On Room Air Post Anesthesia Score: 10 Discharge Sedation Level of Care: Fast Track Phase II Post Sedation Plan On clinical assessment, the patient appears to have tolerated the sedation without complications. Patient is recovering as anticipated. Patient will continue to be monitored by nursing and may be discharged when sedation discharge criteria are met per below protocol. Upon Completions of procedure up to 15 minutes continue every 5 minute vital signs and the P.A.R. score; then discharge to a Phase I or Fast Track to Phase II per the following guidelines: * Discharge Patient to appropriate Phase II area if PAR is 8 or greater or return to pre- procedure baseline. The post - procedure orders will be as directed. * If PAR score is less than 8 or not return to pre-procedure baseline then patient will follow Phase I monitoring till PAR is reached for Phase II. The Phase I may be done in procedure room or may call to secure a Phase I area. * If naloxone or flumazenil are used for reversal, hold in Phase I for continued monitoring from when last reversal dose was given for a minimum of 60 minutes or longer pending the nurse and/or physician discretion of patient condition before discharge to Phase II. Please call the Sedation Physician to re-evaluate and complete post-note for discharge to Phase II area. Do NOT discharge from procedure sedation or Phase 1 until post- sedation evaluation note is complete by procedure /sedation MD Sedation Discharge Instructions to be given to the patient at discharge to home.
--- NOTE | 2022-05-31 17:59 | Cardiac Catheterization ---
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 Cardiac Status Clinical evaluation leading to the procedure CAD Presenation: Sx unlikely to be ischemic Heart Failure: NYHA Class: CCS IV Diagnostic Physicians Name: Yoav Horvath MD Closure Device Recommendations: Medical Therapy and/or Counseling Cardiac Cath Procedure Full Procedure Date May 31, 2022 Pre-Procedure Diagnosis Pre-Procedure Diagnosis: Cardiomyopathy AUC Score AUC Score: 7 Post-Procedure Diagnosis Post-Procedure Diagnosis: Mild CAD and Normal Intracardiac Pressures Procedure(s) Performed Procedure(s) Performed: Coronary Angiography and Left Heart Cath Rn Invasive Yoav Horvath MD Negative Developer(s) Blake Estimated Blood Loss Estimated Blood Loss: 5 Medication(s) Medication(s): Fentanyl, Heparin, Lidocaine 1%, Nicardipine, Nitroglycerin and Versed Summary of Findings Indication: New cardiomyopathy, acute decompensated heart failure Access: 6 Fr right radial artery Catheters: [place] Findings: LM -large caliber, no significant disease LAD -large caliber vessel, proximal/mid segment luminal irregularities. Distal vessel without significant disease but KRISS II distal flow is wraparound apex. Ramusmedium caliber, no significant disease Circumflex -medium caliber, midsegment luminal irregularities RCA -dominant, very large caliber vessel, distal luminal irregularities. Large RPDA, RPLB without significant disease LVEDP - 10 Arterial Closure: TR band Summary: 1. Minimal nonobstructive coronary artery disease -Apical LAD with KRISS II flow, possible microvascular dysfunction 2. Normal intracardiac filling pressure Recommendations: GDMT and maintenance diuretics for nonischemic cardiomyopathy per Dr. Judd Continued ASCVD risk factor modification Hemodynamics Rest Ao:: 95/65/78 Final Ao: 119/77/94 LV: 125/12 Recommendations Recommendations: Medical Therapy and/or Counseling Specimens Specimens: None Radiation Exposure (mGy) 1108 Contrast (mls) 80 Anesthesia Moderate 6612-8662 Procedural Complication(s) None Disposition PCU I attest to the content of the Intraoperative Record and any orders documented therein. Any exceptions are noted below. [facility] Card Cath Procedure Codes Cardiac Catheterization Procedure 1: Cardiovascular Cath Procedures: 65601 Coronaries and LHC (+/-LV) Moderate Sedation Procedure 1: Sedation/Anesthesia: 95217 Mod Sedation by the same physician;Init15 Min Child Age 5 & Up PG Care Time/CCT Total # of Minutes Spent Total Time Spent with Patient: Total time spent is greater than 50% in coordination of care (as documented) at patient's floor/unit and/or counseling patient:
[2022-06-01] MEDS: HEPARIN SOD 5,000 UNIT/0.5 ML VIAL SQ SCH (06:00)
--- NOTE | 2022-06-01 06:19 | Electrocardiogram Report ---
Test Reason : Blood Pressure : / mmHG Vent. Rate : 073 BPM Atrial Rate : 073 BPM P-R Int : 148 ms QRS Dur : 118 ms QT Int : 422 ms P-R-T Axes : 043 -42 -17 degrees QTc Int : 464 ms Normal sinus rhythm Left axis deviation Left ventricular hypertrophy with QRS widening Abnormal ECG When compared with ECG of 30-MAY-2022 11:48, No significant change was found Confirmed by Elver Goodrich ([id number]) on 06/01/2022 6:19:14 AM Referred By: Provider Outside Confirmed By:Elver Goodrich
[2022-06-01 06:38] LABS: Basophils # (auto) 0.04 K/uL (0-0.2); Basophils % (auto) 0.5 %; Eosinophils # (auto) 0.43 K/uL (0-0.50); Hematocrit (blood only) 43.9 % (42.0-52.0); Hemoglobin 14.9 g/dl (14.0-18.0); Immature Granulocytes # (auto) 0.03 K/uL (0.01-0.20); Immature Granulocytes % (auto) 0.4 %; Lymphocytes # (auto) 2.44 K/uL (1.2-3.4); Lymphocytes % (auto) 28.6 %; Mean Corpuscular Hemoglobin 27.3 pg (25.0-34.0); Mean Corpuscular Hgb Conc 33.9 g/dL (32.0-36.0); Mean Corpuscular Volume 80.4 fL (80.0-100.0); Mean Platelet Volume 8.9 fL (9.4-12.4); Monocytes # (auto) 0.58 K/uL (0.11-0.59); Monocytes % (auto) 6.8 %; Neutrophils # (auto) 5.01 K/uL (1.40-6.50); Neutrophils % (auto) 58.7 %; Platelet Count 352 K/uL (130-400); RDW Coefficient of Variation 13.5 % (11.5-14.5); RDW Standard Deviation 38.9 fL (36.4-46.3); Red Blood Count 5.46 M/uL (4.70-6.10); White Blood Count 8.53 K/ul (4.8-10.8)
[2022-06-01 06:54] LABS: Albumin Globulin Ratio 1.2 (0.9-2); Albumin Level 4.2 gm/dl (3.4-5.0); Bilirubin,Total 0.6 mg/dl (0.2-1.0); Calcium 9.2 mg/dl (8.6-10.3); Creatinine Clr Calc Pharmacy 73.9 ml/min; Est GFR (African American) 64.3 ml/min; Est GFR (Non-African American) 55.5 ml/min; Globulin 3.6 gm/dl (2.5-4.0); Potassium 3.8 mmol/L (3.5-5.1); Total Protein 7.8 gm/dl (6.0-8.3)
[2022-06-01] MEDS ORDERED: SPIRONOLACTONE 25 MG TAB PO SCH (09:00)
[2022-06-01] MEDS ORDERED: FUROSEMIDE 20 MG TAB PO SCH (09:00)
[2022-06-01] MEDS ORDERED: ATORVASTATIN 10 MG TAB PO SCH (09:00)
[2022-06-01] MEDS ORDERED: SPIRONOLACTONE 12.5 MG TAB PO SCH (09:00)
[2022-06-01] MEDS: ASPIRIN 81 MG ECTAB PO SCH (09:11)
[2022-06-01] MEDS: METOPROLOL SUCC 25MG EXT REL TAB PO SCH (09:13)
--- NOTE | 2022-06-01 09:55 | Cardiology Progress Note ---
Date of Service June 01, 2022 Assessment & Plan (1) Acute HFrEF (heart failure with reduced ejection fraction): (2) NYHA class 3 systolic congestive heart failure with reduced left ventricular function: (3) Electrocardiogram showing normal QRS interval: Plan New onset systolic congestive heart failure, HFrEF NYHA Class III. Stage C. Ejection Fraction: 35-39%. Narrow QRS duration Maintaining sinus rhythm May 31, 2022 coronary angiograpy with minimal nonobstructive coronary artery disease, KRISS II flow in the apical LAD (possible microvascular dysfunction), normal intracardiac filling pressures Volume Status: Minimal hypervolemia Discontinue IV furosemide Initiate oral furosemide at 20 mg/day Spironolactone 12.5 mg/day in the morning (new) Metoprolol succinate 12.5 mg/day in the morning (New) ASA 81 mg/day (new) Atorvastatin 10 mg/day (new) Continue low dose FIOR inhibition, Lisinopril 2.5 mg/day in the evening BP will not permit titration or utilization of Entresto at this point. Potassium chloride discontinued this admission Outpatient cardiology follow-up in 1-2 weeks Admission and Anticipated Discharge Date Admission Date: May 30, 2022 Supervising Physician Co-Signing Physician Notes I have reviewed the advanced practitioner documentation and agree. I saw and evaluated the patient on date of service referenced in note and have performed the following medically appropriate history and/or exam: newly discovered cardiomyopathy. Does not examine as significantly volume overloaded. Cardiac cath without obstructive disease. Medication recommendations as above along with follow-up. Subjective Patient seen and examined. Chart, medications, and telemetry reviewed. No new complaints or concerns. Ongoing cough productive of phlegm. Weight is down. Edema has improved. May 31, 2022 right radial artery diagnostic cardiac catheterization by Dr. Horvath revealed minimal nonobstructive coronary artery disease with KRISS II flow in the apical LAD, possible microvascular dysfunction. Normal intracardiac filling pressures noted. Telemetry: Sinus rhythm, currently in the 70s. Heart rates ranged from the 60s to 90s. No arrhythmias. No significant bradycardia or pauses. Echocardiogram May 21, 2022 (as per Dr. Saenz): The left ventricle is mildly dilated and upper limits of normal in thickness. There are segmental wall motion abnormalities consistent with conduction changes, left bundle-branch block with otherwise global hypokinesis and moderate to severe left ventricular dysfunction EF 35 -39%. There is mild mitral insufficiency. May 31, 2022 Coronary Angiography ([facility], Dr. Horvath): LM -large caliber, no significant disease LAD -large caliber vessel, proximal/mid segment luminal irregularities. Distal vessel without significant disease but KRISS II distal flow is wraparound apex. Ramusmedium caliber, no significant disease Circumflex -medium caliber, midsegment luminal irregularities RCA -dominant, very large caliber vessel, distal luminal irregularities. Large RPDA, RPLB without significant disease LVEDP - 10 Review of Systems Review of Systems: Complete review of systems is difficult to discern. See above. Otherwise negative or noncontributory. Physical Exam Physical Exam: General: A&Ox3. NAD. HENT: Normocephalic. Atraumatic. Eyes: PER. Conjunctiva pink, sclera clear. Neck: No carotid bruits. JVD. HJR. Heart: RRR, 80 bpm. Soft systolic murmur. No diastolic murmur. No rub. Lungs: Decreased. Diminished. Clear. No wheeze. Abdomen: Large abdomen. +BS. Soft. Nontender. No fluid wave. No masses or organomegaly. Extremities: Mild nonpitting edema. No clubbing. No cyanosis. Limited neurological examination is without focal deficits. Pulses: radial=2/4, posterior tibial=1/4. Results & Data Vital Signs (Past 12 Hours) Vital Signs Temp Pulse Pulse Resp BP Pulse Ox O2 Del Method 06/01/22 08:00 96 H 06/01/22 07:59 36.6 C 81 20 105/69 95 Room Air 06/01/22 03:36 36.4 C L 77 15 99/78 L 93 Room Air 05/31/22 21:59 76 05/31/22 22:55 36.4 C L 85 16 112/67 96 Room Air Laboratory Results Cardiac Enzymes 06/01/22 Range/Units 06:12 AST 22 (13-39) U/L CBC 06/01/22 Range/Units 06:12 WBC 8.53 (4.8-10.8) K/ul RBC 5.46 (4.70-6.10) M/uL Hgb 14.9 (14.0-18.0) g/dl Hct 43.9 (42.0-52.0) % Plt Count 352 (130-400) K/uL Neut # (Auto) 5.01 (1.40-6.50) K/uL Lymph # (Auto) 2.44 (1.2-3.4) K/uL [place] # (Auto) 0.58 (0.11-0.59) K/uL Eos # (Auto) 0.43 (0-0.50) K/uL Baso # (Auto) 0.04 (0-0.2) K/uL Comprehensive Metabolic Panel 06/01/22 Range/Units 06:12 Sodium 135 L (136-145) mmol/L Potassium 3.8 (3.5-5.1) mmol/L Chloride 101 (98-107) mmol/L Carbon Dioxide 24 (21-32) mmol/L BUN 25 H (6-23) mg/dl Creatinine 1.39 (0.6-1.4) mg/dl Glucose 131 H (70-99(Fasting)) mg/dl Calcium 9.2 (8.6-10.3) mg/dl AST 22 (13-39) U/L ALT 18 (7-52) U/L Alkaline Phosphatase 79 (34-104) U/L Total Protein 7.8 (6.0-8.3) gm/dl Albumin 4.2 (3.4-5.0) gm/dl Intake and Output 05/31/22 06/01/22 06/01/22 22:59 06:59 14:59 Intake Total 300 / 300 Output Total Balance 300 / -551 -1 -551 Intake: Oral 300 / 300 Output: # Bowel Movements Other: Other Intake Source sips # Unmeasured Voids 3 3 Weight 112.6 kg Weight Measurement Method Standing Scale
--- NOTE | 2022-06-01 10:52 | Discharge Summary ---
Date of Service June 01, 2022 Admission HPI Per Admitting Provider This is a 57 yr old M who has no significant PMH prior to most recent appointments who presents to ED at the referral of cardiology. He was recently seen by PCP this month due to increased weight gain, sob and abdominal distension. He recently relocated from [place] to live with his brother in [place]. Lab work was performed and an echocardiogram. Echocardiogram reviewed new cardiomyopathy with EF of 35-39% and global hypokinesis. His labwork reviewed cr of 1.2 and mildly elevated TSH. He was starting on lasix 20mg and lisinopril daily. First dose was today. He was referred to cardiology today who referred him to ED due to newly dx acute systolic heart failure. He complains of sniffles, scratchy throat, prob cough with yellow sputum that has since resolved two days ago. He also complains of bloating, intermittent SOB for past 3 months with exertion, and lower extremity swelling. He has gained ~ 20-25lbs. He denies, f/c/s, dizziness, lightheaded, chest pain, sob at rest, n/v/d, abd pain, change in bowel or urinary habits. He does not follow with family doctor regularly. He denies smoking of alcohol and denies excessive salt intake. He does drink mostly coffee, water, tea. +FH of CAD, both parents had CABG in 50s or 60s, one brother had a stroke and another brother currently undergoing cardiac work up. Admission Exam Per Admitting Provider GENERAL: Alert and oriented x3. NAD, on RA. HEENT: No pallor, no icterus. Pupils equal, round and reactive to light. Oral mucosa moist. NECK: No JVD, no neck masses. HEART: S1 and S2 heard. Regular rate and rhythm. No murmur, no gallop. RESPIRATORY SYSTEM: Normal AP diameter. No accessory muscle use. No wheezing, R>L basal crackles. ABDOMEN: Soft, bowel sounds present, nontender, no distention. CENTRAL NERVOUS SYSTEM: No facial droop. Speech is clear. Obeys simple commands. Moves extremities. EXTREMITIES: 1-2 + BLE edema, no erythema seen. Dry feet. Principal Diagnosis Acute on chronic systolic heart failure NYHA class 3 systolic congestive heart failure with reduced left ventricular fu nction Discharge Exam Constitutional: WD/WN, vitals as above, NAD, sitting up in bed, pleasant, conversing easily Respiratory: normal respiratory effort, lungs clear to auscultation, no wheeze, rales, rhonchi. Normal insp/exp effort, no accessory muscle use Cardiovascular: RRR, no murmur, no edema Vessels: no JVD or carotid bruit Chest: normal inspection of chest Abdomen: normal bowel sounds, soft, nontender, no hepatosplenomegaly Musculoskeletal: no cyanosis or clubbing, extremities motor strength 5/5. Trace pitting edema present Skin: no rashes, warm and dry normal turgor Neurologic: PERRL, EOMI, accommodation nl, no face palsy, no dysarthria CN's II- XI intact bilaterally and moves all extremities Psychiatric: A+Ox3, euthymic affect Lymphatic: no cervical or axillary lymphadenopathy : deferred Discharge Data Allergies Allergy/AdvReac Type Severity Reaction Status Date / Time No Known Allergies Allergy Verified 05/30/22 11:55 Consultations 05/30/22 11:58 ED Decision to Admit Stat 05/30/22 12:01 Consult Cardiology Routine Procedures Performed Operation Date: 05/31/22 12:30 Actual Procedures p Cineradiography w/Routine Exam - David Horvath MD p Cath, Left with Cors and Vent - David Horvath MD Ordered Studies 05/31/22 12:23 CL Cath Imgs for PACS use only Stat Hospital Course (1) Acute HFrEF (heart failure with reduced ejection fraction): (2) Prediabetes: Plan Patient is a 57-year-old male with no significant past medical history was sent from cardiology clinic for evaluation of HFrEF. Outpatient echocardiogram rev ealed EF 35 to 39%, global hypokinesis and mild mitral insufficiency. on presentation to the ED, he was normotensive, afebrile and saturating well on room air. Chest x-ray showed mild pulmonary vascular congestion. EKG was normal sinus rhythm with no significant ST or T wave changes. He was admitted to telemetry floor; started on IV diuretics of 40 mg once daily. Over the course of the hospitalization, patient reported improvement in abdominal bloating and shortness of breath. He underwent left heart cath by cardiology on 05/31; found to have minimal nonobstructive coronary artery disease. Patient was started on guideline directed medical therapy for HFrEF which included metoprolol, lisinopril and Aldactone. He was also found to have A1c of 6.4%. Patient to follow-up with his primary care doctor and cardiology in the next week. Total Time Total Time Spent Total Time Spent (In Minutes): 40 Total Time Includes: Examination of the Patient, Discharge Planning, Medication Reconciliation, Communication With Other Providers and Other Discharge Plan Discharge Items Patient Disposition: Home - Self-Care Reason For Visit: NEW CARDIOMYOPATHY, ACUTE HFrEF Discharge Diagnosis: Acute on chronic systolic heart failure NYHA class 3 systolic congestive heart failure with reduced left ventricular function Activity: Resume your previous activity Non-emergency contact: Primary Care Provider Call non-emergency contact if: you have any medication questions and your symptoms worsen Follow-up/Referrals: Anand Saenz MD [Physician] - (The cardiology office will call you with a follow up appointment.) Eduar Purcell MD [Outside Practitioners] - (Date & Time 06/05/2022 1:40 PM Provider Abelardo Leonard MD [facility] ) Diet: Carb Consistent or DM2 Addtl Attending Provider Instructions: You wear admitted to the hospital with heart failure with reduced ejection fraction. You were evaluated by cardiology. You underwent heart catheterization on 05/31 which showed minimal nonobstructive coronary artery disease. You are prescribed following medications: 1) Furosemide at 20 mg/day in the morning 2) Spironolactone 12.5 mg/day in the morning 3) Metoprolol succinate 12.5 mg/day in the morning 4) ASA 81 mg/day in the morning 5) Atorvastatin 10 mg/day in the evening 6) Lisinopril 2.5 mg/day in the evening You will have follow-up with cardiology in 1 to 2 weeks. You will also have follow-up with your primary care doctor in 1 week. You are found to have HbA1c of 6.4% which is in prediabetic range. Please stay away from soda, sugary drinks. Discuss with your primary care doctor regarding blood sugar control Pending Studies at Discharge: No Stand-Alone Forms: [employer], Smoking Cessation Medications and DC Order Prescriptions: New atorvastatin 10 mg Tablet 10 mg PO QAM Qty: 30 0RF aspirin 81 mg Tablet,Delayed Release (Dr/Ec) 81 mg PO QAM Qty: 30 0RF spironolactone 25 mg Tablet 12.5 mg PO QAM Qty: 30 0RF metoprolol succinate 25 mg Tablet Extended Release 24 Hr 12.5 mg PO QAM Qty: 30 0RF Continued furosemide [Lasix] 20 mg Tablet 20 mg PO QAM Qty: 30 0RF lisinopril 2.5 mg Tablet 2.5 mg PO QAM Qty: 30 0RF Discontinued potassium chloride 10 mEq Tablet Extended Release 10 meq PO QAM Discharge Orders: Discharge Order- CHF (Routine); Ordered 06/01/22 Ordered By: Bridger Adame/Other Patient Handouts: Prediabetes, 5 Steps for Eating Healthier Admission Data Admit Date/Time: 05/30/22 12:01 Attending Provider: Bridger Rosas Admit Provider: Davis Ramos Primary Care Provider: PCP,NO Other Providers: Davis Ramos ; Brice Judd
[2022-06-01 14:06] LABS: Albumin 3.8 g/dL (3.8-4.8); Alpha 1 Globulin 0.3 g/dL (0.2-0.3); Alpha 2 Globulin 0.8 g/dL (0.5-0.9); Beta-1-Globulin 0.5 g/dL (0.4-0.6); Beta-2-Globulin 0.4 g/dL (0.2-0.5); Gamma Globulin 1.3 g/dL (0.8-1.7); Monoclonal Protein Band 1 DNR g/dL (NONE DETECTED); Monoclonal Protein Band 2 DNR g/dL (NONE DETECTED); Monoclonal Protein Band 3 DNR g/dL (NONE DETECTED); Total Protein 7.2 g/dL (6.1-8.1)
[2022-06-01] MEDS ORDERED: lisinopril 2.5 MG TAB PO SCH (21:00)
[2022-06-04 16:27] LABS: Alpha 1 Globulin 0.3 g/dL (0.2-0.3); Alpha 2 Globulin 0.8 g/dL (0.5-0.9); Beta-1-Globulin 0.5 g/dL (0.4-0.6); Beta-2-Globulin 0.4 g/dL (0.2-0.5); Gamma Globulin 1.4 g/dL (0.8-1.7); Monoclonal Protein Band 1 DNR g/dL (NONE DETECTED); Monoclonal Protein Band 2 DNR g/dL (NONE DETECTED); Monoclonal Protein Band 3 DNR g/dL (NONE DETECTED); Total Protein 7.5 g/dL (6.1-8.1)
== END 2022-06-01 13:02 | disposition home or self-care (01) | DRG 287 ==
LOC: ED 10:46 → SUATTDRO 12:01 → 1E 12:01 → 2E 05-31 17:33

== ENCOUNTER 2024-12-14 13:49 | Inpatient (IN) ==
--- NOTE | 2024-12-14 14:06 | Emergency Department Note ---
Impression & Plan Colon cancer metastasized to liver, Cardiomyopathy ED Provider Note NAME: BREE GARCIA AGE: 59 SEX: M : 1965 ARRIVES VIA: Walk-In INFORMANT: Patient, ED PROVIDER(S): Abelardo Emerson MD CHIEF COMPLAINT: Outpatient referral, elevated white count, abdominal distention, indigestion MEDICAL DECISION MAKING: Patient presents with multiple complaints admittedly poor historian. IV was established and blood work was obtained. The patient's blood work shows a white count of 12 with a hemoglobin of 11.9. Patient's platelet count is unremarkable. Kidney function unremarkable. Sodium 134. Troponin negative urinalysis negative for blood or infection. The patient's chest x-ray may show atelectatic changes. CT abdomen pelvis does show concern for colon cancer with liver metastasis. Given that this is a new finding to believe it would benefit the patient to be inpatient for further workup and treatment. I did discuss this with the patient the patient's brother at bedside. They are in agreement with plan of care. I did speak with Kayley Leggett PA-C and the patient was admitted by Dr. Stone. Discussion w/ other healthcare providers: Kayley Leggett PA-C and Dr. Stone patient medicine service [facility] Prior /Outside records reviewed: I reviewed part of a cardiology visit note from Dr. Saenz from April 2024. Patient with a history of nonischemic cardiomyopathy class II systolic CHF cardiac cath in May 2022 minimal nonobstructive CAD MELISSA on CPAP. Reported history of autism. Reviewed part of a PCP visit from Dr. Purcell from April 2023. I also did report of a convenient care visit note from patient was seen by Ginette Caal nurse practitioner EKG was completed patient was given a prescription for Pepcid and had labs ordered. Reviewed the note from Dr. Saenz and I do not see an obvious mention of fluid around the heart. Does mention heart failure. Differential diagnosis: Infection, dehydration, metabolic abnormality, hypo/hyperglycemia, electrolyte imbalance, anemia, UTI, pneumonia, thyroid dysfunction among others were considered. Diagnostics, as interpreted by me: ECG: Sinus with premature complexes. Rate 91, normal intervals, left axis deviation no obvious STEMI T wave version in lead III. Cardiac monitoring: An order was placed for continuous cardiac monitoring. The monitor shows a rate of 89 with sinus rhythm. Patient was placed on pulse oximetry Medical decision rules: None Imaging studies: I informally interpreted the patient's CT abdomen pelvis that showed liver lesions with formal report to follow. HPI: Patient presents due to concern for elevated white count when she was notified about her blood work that was completed yesterday. Patient reports that he was seen due to concern for indigestion. The patient states that has been having "gas bubbles" in his abdomen. The patient states that he has not complained of any chest pain or shortness of breath and no exertional components. He does refer to a time when he was admitted and they thought that maybe there was some fluid around the heart about 3 years ago. Patient does follow with Dr. John Hair. He is compliant with medications. He denies any history of abdominal surgeries. He did have recent bowel movement. No blood in urine or stool. Patient denies any cough fevers or chills. Patient was prescribed a heartburn relief medication which he began taking. PAST MEDICAL HISTORY: See Below PAST SURGICAL HISTORY: See Below SOCIAL HISTORY: See Below HOME MEDICATIONS: See Below ALLERGIES: See Below VITALS: See Below PHYSICAL EXAMINATION: GENERAL: NAD, non-toxic. EYE EXAM: Normal conjunctiva. PERRL, no anisocoria and EOM's grossly intact w/o pain. OROPHARYNX: Moist mucus membranes, grossly normal dentition. NECK: Trachea midline, no stridor. LUNGS: Clear to auscultation. Normal chest wall mechanics. HEART: NSR, no MRG. ABDOMEN: Distended abdomen, nontender. BACK: No CVA TTP. SKIN: No rashes and no bruising. UPPER EXTREMITIES: Upper extremities are grossly normal. LOWER EXTREMITIES: Grossly normal, no edema. NEURO EXAM: Awake and alert, follows commands, no obvious facial asymmetry, normal speech, moves all 4 extremities. Past Med/Surg History Problem List (Updated 12/14/24 @ 16:47 by Abelardo Emerson MD) Colon cancer metastasized to liver (Acute) Prediabetes NYHA class 3 systolic congestive heart failure with reduced left ventricular function Cardiomyopathy (Acute) Acute HFrEF (heart failure with reduced ejection fraction) (Acute) Medical History Electrocardiogram showing normal QRS interval No pertinent past medical history Surgical History No pertinent past surgical history Family History Other Coronary heart disease Hx of heart bypass surgery Social History Smoking Status: Never smoker Second Hand Exposure: No; Do You Dip or Chew Tobacco: No; Hx Alcohol Use: No Hx Substance Use: No Preferred Language: Turkmen Communication Ability: Effective Web Analyst Required: No Beliefs That Will Affect Care: None marital status: Current Living Situation: Family Feels Safe at Home: Yes Assistive Devices: None Allergies Allergies Allergy/AdvReac Type Severity Reaction Status Date / Time No Known Allergies Allergy Verified 05/30/22 11:55 Home Meds Previous Rx's Medication Instructions Recorded aspirin 81 mg tablet,delayed 81 mg PO QAM #30 tabs 06/01/22 release atorvastatin 10 mg tablet 10 mg PO QAM #30 tabs 06/01/22 furosemide 20 mg tablet (Lasix) 20 mg PO QAM #30 tabs 06/01/22 lisinopril 2.5 mg tablet 2.5 mg PO QAM #30 tabs 06/01/22 metoprolol succinate 25 mg 12.5 mg (1/2 x 25 mg) PO QAM #30 06/01/22 tablet,extended release 24 hr tabs spironolactone 25 mg tablet 12.5 mg (1/2 x 25 mg) PO QAM #30 06/01/22 tabs Results & Data (ED) Vital Signs Vital Signs - 24 hr 12/14/24 14:01 12/14/24 14:27 12/14/24 14:27 Temperature 36.4 C L Temperature Source Oral Pulse Rate 89 85 Pulse Rate [Apical] 85 Pulse Rhythm Regular Pulse Rhythm [Apical] Regular Pulse Strength [Apical] Normal Respiratory Rate 20 16 18 Respiratory Effort / Characteristics Non-Labored Spontaneous Non-Labored Spontaneous Respiratory Depth Normal Normal Respiratory Pattern Regular Blood Pressure 142/85 H Blood Pressure [Right Arm] 153/98 H Blood Pressure Mean 104 Blood Pressure Mean [Right Arm] 116 Blood Pressure Position [Right Arm] Lying Pulse Oximetry 97 95 95 Oxygen Delivery Method Room Air Room Air Room Air Sepsis Recent Fever Within 48 Hours No Sepsis New/Unexplained Change in Mental Status N/A Sepsis Action Taken by Nursing No Action Required 12/14/24 15:36 Temperature Temperature Source Pulse Rate 95 H Pulse Rate [Apical] Pulse Rhythm Pulse Rhythm [Apical] Pulse Strength [Apical] Respiratory Rate Respiratory Effort / Characteristics Respiratory Depth Respiratory Pattern Blood Pressure Blood Pressure [Right Arm] Blood Pressure Mean Blood Pressure Mean [Right Arm] Blood Pressure Position [Right Arm] Pulse Oximetry Oxygen Delivery Method Sepsis Recent Fever Within 48 Hours Sepsis New/Unexplained Change in Mental Status Sepsis Action Taken by [facility]pc Medications Current Medication List: was personally reviewed by me Laboratory Data Attestation: I reviewed the patient's lab results. 12/14/24 14:22 12/14/24 14:22 Lab Results 12/14/24 12/14/24 Range/Units 14:22 14:28 WBC 12.54 H (4.8-10.8) K/ul RBC 5.12 (4.70-6.10) M/uL Hgb 11.9 L (14.0-18.0) g/dl POC Hgb 13.3 L (14.0-18.0) g/dl Hct 37.2 L (42.0-52.0) % POC Hct 39 L (42-52) % MCV 72.7 L (80.0-100.0) fL MCH 23.2 L (25.0-34.0) pg MCHC 32.0 (32.0-36.0) g/dL RDW Std Deviation 45.5 (36.4-46.3) fL RDW Coeff of Junito 17.5 H (11.5-14.5) % Plt Count 380 (130-400) K/uL MPV 8.9 L (9.4-12.4) fL Immature Gran % (Auto) 0.4 % Neut % (Auto) 64.3 % Lymph % (Auto) 19.9 % Kimble % (Auto) 8.9 % Eos % (Auto) 5.8 % Baso % (Auto) 0.7 % Neut # (Auto) 8.06 H (1.40-6.50) K/uL Lymph # (Auto) 2.49 (1.20-3.40) K/uL Kimble # (Auto) 1.12 H (0.11-0.59) K/uL Eos # (Auto) 0.73 H (0.00-0.50) K/uL Baso # (Auto) 0.09 (0.00-0.20) K/uL Immature Gran # (Auto) 0.05 (0.01-0.20) K/uL PT 11.3 (9.0-12.0) Seconds INR 1.1 (0.9-1.1) POC Sodium 136 (135-144) mmol/L Sodium 134 L (136-145) mmol/L POC Potassium 3.8 (3.3-5.0) mmol/L Potassium 3.8 (3.5-5.1) mmol/L POC Chloride 103 (101-112) mmol/L Chloride 101 (98-107) mmol/L Carbon Dioxide 23 (21-32) mmol/L POC Total CO2 22 L (24-31) mmol/L Anion Gap 10 (3-11) POC Anion Gap 15.0 L (16-25) mmol/L POC BUN 14 (7-18) mg/dl BUN 14 (6-23) mg/dl Creatinine 1.15 (0.6-1.4) mg/dl POC Creatinine 1.3 (0.6-1.3) mg/dl Est Cr Clr Drug Dosing 84.1 ml/min eGFR 72.86 BUN/Creatinine Ratio 12.2 (10-20) Glucose 112 H (70-99(Fasting)) mg/dl POC Glucose (other) 115 H (70-99) mg/dl Calcium 9.2 (8.6-10.3) mg/dl POC Ioniz Calcium Aron 1.16 (1.12-1.32) mmol/l Total Bilirubin 0.4 (0.2-1.0) mg/dl AST 19 (13-39) U/L ALT 18 (7-52) U/L Alkaline Phosphatase 105 H (34-104) U/L Troponin I High Sens 4.8 (0-20) pg/ml Total Protein 7.7 (6.0-8.3) gm/dl Albumin 4.4 (3.4-5.0) gm/dl Globulin 3.3 (2.5-4.0) gm/dl Albumin/Globulin Ratio 1.3 (0.9-2) Lipase 24 (11-82) U/L Urine Color Yellow Urine Appearance Clear (Clear) Urine pH 7.0 (4.5-7.5) Ur Specific [place] 1.016 (1.000-1.030) Urine Protein Negative (Negative) Urine Glucose (UA) Negative (Negative) Urine Ketones Negative (Negative) Urine Blood Negative (Negative) Urine Nitrite Negative (Negative) Urine Bilirubin Negative (Negative) Urine Urobilinogen Negative (Negative) Ur Leukocyte Esterase Negative (Negative) Urine Comment Administered Medications Discontinued Medications Ioversol (Optiray 320 100ml) 94 ml IV ONCE ONE Stop: 12/14/24 15:07 Last Admin: 12/14/24 15:06 Dose: 94 ml Documented By: [facility] Imaging Data Radiologist's Impression: Chest X-Ray 12/14/24 14:17 SINGLE VIEW CHEST CLINICAL HISTORY: Abdominal distention. FINDINGS: An AP, portable, upright chest radiograph is compared to study dated 05/30/2022. The heart is enlarged. There is pulmonary vascular congestion. Dependent airspace opacity likely represent atelectasis. No large pleural effusion or pneumothorax is seen. The skeletal structures are osteopenic. The bony thorax is grossly intact. Degenerative change is noted in the shoulders. IMPRESSION: 1. Cardiomegaly with pulmonary vascular congestion. 2. Dependent opacities likely represent atelectasis. Correlate clinically. ACT 112: Negative or not required by law. Electronically signed by: Serge Thornton M.D. 12/14/2024 2:38 PM Abdomen/Pelvis CT 12/14/24 14:[address] WITH IV CONTRAST CT DOSE: 1515.88 mGy.cm HISTORY: ab distension TECHNIQUE: Multiaxial CT images of the abdomen and pelvis were performed following the IV administration of 90 cc of Optiray, A dose lowering technique was utilized adhering to the principles of ALARA. COMPARISON STUDY: None FINDINGS: There is a 1.2 cm pulmonary nodule lateral right lung base. ABDOMEN: There are multiple masses scattered at the liver measuring up to 5 cm which have morphology suspicious for liver metastatic disease. There is a tiny gallstone without evidence of acute cholecystitis. Spleen, pancreas, and adrenal glands are unremarkable. There are a few small cysts at the right kidney. No abdominal aortic aneurysm. Pelvis: Prostate is enlarged and indents the urinary bladder base. Urinary bladder is mildly distended. There is a calcification centrally in the prostate measuring approximately 1 cm. There is a mass at the distal descending colon measuring 5 cm greatest axial dimension by 5 cm craniocaudad. There are a few adjacent abnormal lymph nodes medial to the mass measuring up to 3 cm. There are a few enlarged periaortic lymph nodes measuring up to 2 cm series 3 image 168. No other bowel inflammation or obstruction seen. Normal appendix. No free fluid, free air, or abscess. Osseous structures: There are mild degenerative changes at the lumbar spine and hips. IMPRESSION: 1. Colon cancer at the distal descending colon with liver and lymph node metastatic disease. 2. No bowel obstruction or perforation. No ascites. 3. Nonspecific 1.2 cm pulmonary nodule at the right lung base. Differential diagnosis includes pulmonary metastatic disease and infectious/inflammatory nodule. 4. No other acute findings seen. Otherwise as described. ACT 112: Positive. There are findings on this exam that require communication between the performing entity and the patient following Patient Test Result Information Act ([place] Act 112) guidelines. The above report was generated using voice recognition software. It may contain grammatical, syntax or spelling errors. Electronically signed by: Brice Hernandez M.D. 12/14/2024 3:38 PM Discharge Plan Visit Data Chief Complaint: Abnormal Labs/Diagnostic Testing Stated Complaint: REF BY URG CARE, ELEVATED WHITE BLOOD COUNT ED Provider: Abelardo Emerson Discharge Problem: Colon cancer metastasized to liver, Cardiomyopathy Patient Disposition: Admitted As Inpatient Condition: Good Forms Stand Alone Forms: [facility] [place] [employer] Prescriptions Prescriptions: No Action atorvastatin 10 mg Tablet 10 mg PO QAM Qty: 30 0RF aspirin 81 mg Tablet,Delayed Release (Dr/Ec) 81 mg PO QAM Qty: 30 0RF spironolactone 25 mg Tablet 12.5 mg PO QAM Qty: 30 0RF metoprolol succinate 25 mg Tablet Extended Release 24 Hr 12.5 mg PO QAM Qty: 30 0RF furosemide [Lasix] 20 mg Tablet 20 mg PO QAM Qty: 30 0RF lisinopril 2.5 mg Tablet 2.5 mg PO QAM Qty: 30 0RF Referrals Referrals: PCP,NO [Physician] - Discharge Problem: Cardiomyopathy Qualifiers: Cardiomyopathy type: unspecified Qualified Code(s): I42.9 - Cardiomyopathy, unspecified
[2024-12-14 14:38] LABS: Hematocrit (blood only) 37.2 % (42.0-52.0); Hemoglobin 11.9 g/dl (14.0-18.0); Immature Granulocytes # (auto) 0.05 K/uL (0.01-0.20); Immature Granulocytes % (auto) 0.4 %; Mean Corpuscular Hemoglobin 23.2 pg (25.0-34.0); Mean Corpuscular Volume 72.7 fL (80.0-100.0); Platelet Count 380 K/uL (130-400); RDW Standard Deviation 45.5 fL (36.4-46.3); Red Blood Count 5.12 M/uL (4.70-6.10); White Blood Count 12.54 K/ul (4.8-10.8)
[2024-12-14 14:39] LABS: Appearance Urine Clear (Clear); Glucose Urine UA Negative (Negative)
--- NOTE | 2024-12-14 14:39 | XRay Report ---
SINGLE VIEW CHEST CLINICAL HISTORY: Abdominal distention. FINDINGS: An AP, portable, upright chest radiograph is compared to study dated 05/30/2022. The heart i s enlarged. There is pulmonary vascular congestion. Dependent airspace opacity likely represent atele ctasis. No large pleural effusion or pneumothorax is seen. The skeletal structures are osteopenic. Th e bony thorax is grossly intact. Degenerative change is noted in the shoulders. IMPRESSION: 1. Cardiomegaly with pulmonary vascular congestion. 2. Dependent opacities likely represent atelectasis. Correlate clinically. ACT 112: Negative or not required by law. Electronically signed by: Serge Thornton M.D. 12/14/2024 2:38 PM
[2024-12-14 14:56] LABS: Alanine Aminotransferase 18.0 U/L (7-52); Albumin Globulin Ratio 1.3 (0.9-2); Albumin Level 4.4 gm/dl (3.4-5.0); Alkaline Phosphatase 105.0 U/L (34-104); Anion Gap 10.0 (3-11); Bilirubin,Total 0.4 mg/dl (0.2-1.0); Blood Urea Nitrogen 14.0 mg/dl (6-23); Calcium 9.2 mg/dl (8.6-10.3); Carbon Dioxide 23.0 mmol/L (21-32); Chloride 101.0 mmol/L (98-107); Creatinine Clr Calc Pharmacy 84.1 ml/min; Globulin 3.3 gm/dl (2.5-4.0); Glucose 112.0 mg/dl (70-99(Fasting)); Lipase 24.0 U/L (11-82); Potassium 3.8 mmol/L (3.5-5.1); Sodium 134.0 mmol/L (136-145); Total Protein 7.7 gm/dl (6.0-8.3)
[2024-12-14] MEDS: OPTIRAY 320 100ml IV ONE ×2 (15:06→18:05)
[2024-12-14 15:16] LABS: INR 1.1 (0.9-1.1); Prothrombin Time 11.3 Seconds (9.0-12.0)
--- NOTE | 2024-12-14 15:40 | CT Scan Report ---
ABDOMEN AND PELVIS CT WITH IV CONTRAST CT DOSE: 1515.88 mGy.cm HISTORY: ab distension TECHNIQUE: Multiaxial CT images of the abdomen and pelvis were performed following the IV administrat ion of 90 cc of Optiray, A dose lowering technique was utilized adhering to the principles of ALARA. COMPARISON STUDY: None FINDINGS: There is a 1.2 cm pulmonary nodule lateral right lung base. ABDOMEN: There are multiple masses scattered at the liver measuring up to 5 cm which have morphology suspicious for liver metastatic disease. There is a tiny gallstone without evidence of acute cholecystitis. Spleen, pancreas, and adrenal glan ds are unremarkable. There are a few small cysts at the right kidney. No abdominal aortic aneurysm. Pelvis: Prostate is enlarged and indents the urinary bladder base. Urinary bladder is mildly distende d. There is a calcification centrally in the prostate measuring approximately 1 cm. There is a mass at the distal descending colon measuring 5 cm greatest axial dimension by 5 cm cranio caudad. There are a few adjacent abnormal lymph nodes medial to the mass measuring up to 3 cm. There are a few enlarged periaortic lymph nodes measuring up to 2 cm series 3 image 168. No other bowel inf lammation or obstruction seen. Normal appendix. No free fluid, free air, or abscess. Osseous structures: There are mild degenerative changes at the lumbar spine and hips. IMPRESSION: 1. Colon cancer at the distal descending colon with liver and lymph node metastatic disease. 2. No bowel obstruction or perforation. No ascites. 3. Nonspecific 1.2 cm pulmonary nodule at the right lung base. Differential diagnosis includes pulmon clarence metastatic disease and infectious/inflammatory nodule. 4. No other acute findings seen. Otherwise as described. ACT 112: Positive. There are findings on this exam that require communication between the performing entity and the patient following Patient Test Result Information Act ([place] Act 112) guidelines. The above report was generated using voice recognition software. It may contain grammatical, syntax o r spelling errors. Electronically signed by: Brice Hernandez M.D. 12/14/2024 3:38 PM
--- NOTE | 2024-12-14 16:09 | History & Physical Report ---
Date of Service December 14, 2024 Assessment & Plan (1) Colonic mass: (2) Abnormal computed tomography of abdomen and pelvis: Plan: #Abdominal Bloating Patient is 59-year-old male with PMH nonischemic cardiomyopathy, chronic HFrEF, most recent echo in 07/2024 with improved EF to 50%, HTN, dyslipidemia, DM II, MELISSA, obesity, autistic disorder presented to ER with c/o "abnormal labs" - elevated WBC of 13 yesterday and ongoing intermittent abdominal bloating and discomfort. Today in ER afebrile, P: 89, R: 20, BP 142/87, 97% on room air CT ABD/PELVIS: 1. Colon cancer at the distal descending colon with liver and lymph node metastatic disease. 2. No bowel obstruction or perforation. No ascites. 3. Nonspecific 1.2 cm pulmonary nodule at the right lung base. Differential diagnosis includes pulmonary metastatic disease and infectious/inflammatory nodule. 4. No other acute findings seen. Otherwise as described. WBC: 12.5. No infectious symptoms or clear source at this time. Monitor Concern for likely colon cancer with metastasis CEA, CA 19-9, CA 125, AFP, CRP, LDH pending Will do clear liquid diet for now and NPO MN in consideration for possible colonoscopy GI consult for consideration colonoscopy IR biopsy liver CT chest to further assess metastasis Will need oncology consult vs outpatient referral Will continue famotidine for now as patient reports seems to have helped with indigestion CBC, BMP (3) Anemia: Plan: Hgb: 11.9. Previously normal Suspect underlying iron deficiency Obtain anemia labs (4) Nonischemic cardiomyopathy: Plan: #Chronic Heart failure #H/O HFrEF, most recent echo in 07/2024 with improved EF to 50% 07/20/2024 echo: EF: 50%, mild mitral regurgitation, aortic root mildly enlarged 05/31/2022 cardiac catheterization: Minimal nonobstructive CAD CXR: Cardiomegaly with pulmonary vascular congestion. Dependent opacities likely represent atelectasis. Clinically examines fairly euvolemic Continue home metoprolol, lisinopril, furosemide, spironolactone, atorvastatin Hold aspirin for now in consideration for possible procedure #Prediabetes A1c: 6.3 on 04/09/2023 Random glucose: 112 A1c in AM (5) MELISSA (obstructive sleep apnea): Plan: CPAP HS DVT Prophylaxis SCDs in case of procedure Admit med tele Full Code as per discussion with pt and pt's brother Follows with Dr Purcell for routine care Pt was seen and care coordinated with Dr Stone. See addendum I spent a total of 60 minutes reviewing notes, outpatient records, labs, medication, coordinating, documenting and providing care for this patient excluding time spent in the performance of separately billed services and excluding time spent by another provider/QHP. History of Present Illness Chief Complaint: abnormal labs Primary Care Provider: Eduar Purcell MD Patient is 59-year-old male with PMH nonischemic cardiomyopathy, chronic HFrEF, most recent echo in 07/2024 with improved EF to 50%, HTN, dyslipidemia, DM II, MELISSA, obesity, autistic disorder presented to ER with c/o "abnormal labs". History obtained from patient, outpatient and inpatient chart review. History [facility] hospitalization on 05/30/2022-06/01/2022 for newly diagnosed acute HFrEF, nonischemic cardiomyopathy. Per outpatient chart review patient seen 12/13/24 (yesterday) at urgent care for "bubbling" abdomen and pressure, possible heartburn. Was started on famotidine for possible heartburn and labs were ordered. Labs were drawn was found to have WBC: 13, Hgb: 12.8 and was referred to ER today for further evaluation. Per patient for past couple of years having abdominal bloating and intermittent "bubbling" and pressure type sensation more to left side of abdomen. States recently having some sharp pains associated with this but seems to resolve after having BM or feels like "bubble pop" and sensation eases. Last week started with indigestion which is new. He tried Pepto-Bismol once with some relief. He states a couple of times over the past 2 years had episode of some reddish coloration in his stool. States possibly once had episode of melena. He states has had gradual weight loss but is unable to quantify amount or time frame. Denies fever/chills, diaphoresis, N/V/D/C, HENRY, dizziness, syncope, vision changes, neck pain, CP, SOB, orthopnea, palpitations, cough, sore throat, rhinorrhea, paresthesias, weakness, extremity edema, rashes, dysuria, hematuria, urinary frequency, urinary retention, night sweats. No history colonoscopy. FH prostate CA. 108.7 kg on 04/21/24 per outpatient cardiology note. 111 kg on 04/09/23 outpatient PCP note Allergies Allergy/AdvReac Type Severity Reaction Status Date / Time No Known Allergies Allergy Verified 12/14/24 16:47 Home Medications Medication Instructions Recorded Confirmed Type aspirin 81 mg tablet,delayed 81 mg PO QAM #30 tabs 06/01/22 12/14/24 Rx release atorvastatin 10 mg tablet 10 mg PO QAM #30 tabs 06/01/22 12/14/24 Rx furosemide 20 mg tablet (Lasix) 20 mg PO QAM #30 tabs 06/01/22 12/14/24 Rx lisinopril 2.5 mg tablet 2.5 mg PO QAM #30 tabs 06/01/22 12/14/24 Rx metoprolol succinate 25 mg 12.5 mg (1/2 x 25 mg) PO QAM #30 06/01/22 12/14/24 Rx tablet,extended release 24 hr tabs spironolactone 25 mg tablet 12.5 mg (1/2 x 25 mg) PO QAM #30 06/01/22 12/14/24 Rx tabs ascorbic acid (vitamin C) 250 mg 250 mg PO DAILY 12/14/24 12/14/24 History tablet (Vitamin C) famotidine 10 mg tablet 10 mg PO BID 12/14/24 12/14/24 History potassium chloride 10 mEq 10 meq PO DAILY 12/14/24 12/14/24 History capsule,extended release Past Med/Surg History Problem List (Updated 12/14/24 @ 17:10 by aKyley Mtz PA-C) MELISSA (obstructive sleep apnea) Nonischemic cardiomyopathy Anemia Abnormal computed tomography of abdomen and pelvis Colonic mass Colon cancer metastasized to liver (Acute) Prediabetes NYHA class 3 systolic congestive heart failure with reduced left ventricular function Cardiomyopathy (Acute) Acute HFrEF (heart failure with reduced ejection fraction) (Acute) Medical History Electrocardiogram showing normal QRS interval No pertinent past medical history Surgical History History of cardiac catheterization 2022 Family History (Updated 12/14/24 @ 17:06 by Kayley Mtz PA-C) Other Coronary heart disease Hx of heart bypass surgery Prostate cancer Social History Smoking Status: Never smoker Second Hand Exposure: No; Do You Dip or Chew Tobacco: No; Hx Alcohol Use: No Hx Substance Use: No Preferred Language: Cuban Communication Ability: Effective Surgical Garment Assembly Supervisor Required: No Beliefs That Will Affect Care: None marital status: Current Living Situation: Family Feels Safe at Home: Yes Assistive Devices: None Review of Systems Review of Systems: All systems reviewed & are unremarkable except as noted in HPI & below Physical Exam Physical Exam: General: no distress, obese male Head: normocephalic, atraumatic Eyes: conjunctiva non-injected, anicteric ENT: normal inspection external ears, nose, mucous membranes moist Neck: supple, trachea midline Lungs: clear, no respiratory distress, no wheezing/rhonchi/rales CV: RRR, no murmur, no pretibial edema Abd:+protuberant, normal BS, soft, non-tender to palpation Ext: no cyanosis, no calf tenderness Neuro: A&O x 3, no focal deficits noted, normal affect Skin: warm, dry Results & Data Results & Data Vital Signs (Past 12 Hours) Vital Signs Temp Pulse Pulse Resp BP BP Pulse Ox 12/14/24 15:36 95 H 12/14/24 14:27 85 18 95 12/14/24 14:27 85 16 153/98 H 95 12/14/24 14:01 36.4 C L 89 20 142/85 H 97 O2 Del Method 12/14/24 15:36 12/14/24 14:27 Room Air 12/14/24 14:27 Room Air 12/14/24 14:01 Room Air Laboratory Results Short CBC 12/14/24 Range/Units 14:22 WBC 12.54 H (4.8-10.8) K/ul Hgb 11.9 L (14.0-18.0) g/dl Hct 37.2 L (42.0-52.0) % Plt Count 380 (130-400) K/uL BMP 12/14/24 14:22 Sodium 134 L Potassium 3.8 Chloride 101 Carbon Dioxide 23 BUN 14 Creatinine 1.15 Glucose 112 H Calcium 9.2 Liver Function 12/14/24 Range/Units 14:22 Total Bilirubin 0.4 (0.2-1.0) mg/dl AST 19 (13-39) U/L ALT 18 (7-52) U/L Alkaline Phosphatase 105 H (34-104) U/L Albumin 4.4 (3.4-5.0) gm/dl Urine 12/14/24 Range/Units 14:22 Urine Color Yellow Urine Appearance Clear (Clear) Urine pH 7.0 (4.5-7.5) Ur Specific [place] 1.016 (1.000-1.030) Urine Protein Negative (Negative) Urine Glucose (UA) Negative (Negative) Diagnostic Findings Chest X-Ray 12/14/24 14:17 SINGLE VIEW CHEST CLINICAL HISTORY: Abdominal distention. FINDINGS: An AP, portable, upright chest radiograph is compared to study dated 05/30/2022. The heart is enlarged. There is pulmonary vascular congestion. Dependent airspace opacity likely represent atelectasis. No large pleural effusion or pneumothorax is seen. The skeletal structures are osteopenic. The bony thorax is grossly intact. Degenerative change is noted in the shoulders. IMPRESSION: 1. Cardiomegaly with pulmonary vascular congestion. 2. Dependent opacities likely represent atelectasis. Correlate clinically. ACT 112: Negative or not required by law. Electronically signed by: Serge Thornton M.D. 12/14/2024 2:38 PM Abdomen/Pelvis CT 12/14/24 14:[address] WITH IV CONTRAST CT DOSE: 1515.88 mGy.cm HISTORY: ab distension TECHNIQUE: Multiaxial CT images of the abdomen and pelvis were performed following the IV administration of 90 cc of Optiray, A dose lowering technique was utilized adhering to the principles of ALARA. COMPARISON STUDY: None FINDINGS: There is a 1.2 cm pulmonary nodule lateral right lung base. ABDOMEN: There are multiple masses scattered at the liver measuring up to 5 cm which have morphology suspicious for liver metastatic disease. There is a tiny gallstone without evidence of acute cholecystitis. Spleen, pancreas, and adrenal glands are unremarkable. There are a few small cysts at the right kidney. No abdominal aortic aneurysm. Pelvis: Prostate is enlarged and indents the urinary bladder base. Urinary bladder is mildly distended. There is a calcification centrally in the prostate measuring approximately 1 cm. There is a mass at the distal descending colon measuring 5 cm greatest axial di mension by 5 cm craniocaudad. There are a few adjacent abnormal lymph nodes medial to the mass measuring up to 3 cm. There are a few enlarged periaortic lymph nodes measuring up to 2 cm series 3 image 168. No other bowel inflammation or obstruction seen. Normal appendix. No free fluid, free air, or abscess. Osseous structures: There are mild degenerative changes at the lumbar spine and hips. IMPRESSION: 1. Colon cancer at the distal descending colon with liver and lymph node metastatic disease. 2. No bowel obstruction or perforation. No ascites. 3. Nonspecific 1.2 cm pulmonary nodule at the right lung base. Differential diagnosis includes pulmonary metastatic disease and infectious/inflammatory nodule. 4. No other acute findings seen. Otherwise as described. ACT 112: Positive. There are findings on this exam that require communication between the performing entity and the patient following Patient Test Result Information Act ([place] Act 112) guidelines. The above report was generated using voice recognition software. It may contain grammatical, syntax or spelling errors. Electronically signed by: Brice Hernandez M.D. 12/14/2024 3:38 PM Supervising Physician Co-Signing Physician Notes Patient seen and examined at bedside. Brother in room as well. Patient has been having pressure and bloating, and a "gurgling" for past few weeks, steadily getting worse. On exam, temporal wasting noted, no pitting edema, large body habitus. Leukocytosis of 12 of unclear etiology, MCV of [address] abdomen/pelvis personally reviewed, notable 5cm colonic mass in distal colon, numerous hepatic metastases. ECOG 0 at this time. Patient presenting with bloating and pressure in abdomen, now found to have likely stage IV malignancy of unknown origin (likely colon). Other considerations would be lymphoma, neuroendocrine, sarcomas, less likely gastric/breast. -IR biopsy for liver ordered, GI consult for consideration of colonoscopy, appreciate assistance and recs -check CEA, CA 19-9, CA 125, and AFP tumor markers. CRP and LDH ordered for prognostication purposes -CT chest with contrast for staging workup -nutrition/PT/OT consults for new malignancy optimization -check iron studies for MCV of 72 -lower suspicion for malignancy given no localization/source of infection, monitor for now without abx Update: CEA remarkably elevated suggestive of colon primary. I have seen and discussed the case with the collaborating advanced practitioner. I agree with the above H&P. I have reviewed and confirmed the patients medical history, the findings on physical examination, and the patients diagnosis and treatment plan with Kayley Mtz PA-C and agree with the information documented. I spent a total of 40 minutes coordinating, documenting, and providing care for this patient excluding time spent in the performance of separately billed services. All of the aforementioned completed outside of collaborating with the assigned advanced practitioner for a full treatment plan. I have reviewed the advanced practitioner's documentation, and I agree with, and take responsibility for the plan of care
--- NOTE | 2024-12-14 16:25 | Electrocardiogram Report ---
Test Reason : Blood Pressure : */* mmHG Vent. Rate : 91 BPM Atrial Rate : 91 BPM P-R Int : 144 ms QRS Dur : 102 ms QT Int : 364 ms P-R-T Axes : 45 -48 11 degrees QTcB Int : 447 ms Sinus rhythm with Premature supraventricular complexes Left anterior fascicular block Minimal voltage criteria for LVH, may be normal variant ( R in aVL ) Abnormal ECG When compared with ECG of 31-May-2022 13:40, Premature supraventricular complexes are now Present Confirmed by Donnie Henao ([id number]) on 12/14/2024 4:24:58 PM Referred By: Confirmed By: Donnie Henao
[2024-12-14 17:10] LABS: Iron 26.0 mcg/dl (35-175); Total Iron Binding Cap Calc 400.0 mcg/dl (250-450); Transferrin 322.0 mg/dl (200-360); Transferrin (FE) Percent Satur 7.0 % (20-50)
[2024-12-14 17:27] LABS: Ferritin 15.4 ng/ml (8-388)
[2024-12-14] MEDS ORDERED: ONDANSETRON INJ 2 MG/ML 2 ML VIAL IV PRN (18:37)
[2024-12-14] MEDS ORDERED: ACETAMINOPHEN 325 MG TAB PO PRN (18:37)
[2024-12-14] MEDS ORDERED: POLYETHYLENE (MIRALAX) 17 GM PACK PO PRN (18:37)
--- NOTE | 2024-12-14 19:10 | CT Scan Report ---
CT CHEST WITH CONTRAST: HISTORY: Metastasis workup. TECHNIQUE: CT of the chest was obtained with intravenous contrast. Coronal and sagittal reformats were created. IV CONTRAST: 100 mL of OMNIPAQUE 300 COMPARISON: CT abdomen and pelvis from the same day is not viewable in our system. FINDINGS: LOWER NECK: 6 mm left thyroid nodule. LYMPH NODES: Mildly enlarged mediastinal and hilar lymph nodes are seen. For example, there is a right hilar lymph node measuring 1.0 cm (series 2, image 32) CARDIOVASCULAR: Cardiac size is enlarged. Coronary artery and valvular calcifications are noted. No aortic aneurysm. LUNGS: The trachea and central bronchi are widely patent. No focal confluent infiltrates are seen. There are scattered pulmonary nodules in both lungs. For example, there is a right basilar nodule measuring 9 mm (series 2, image 43). There is a left upper lobe nodule measuring 6 mm (image 19) PLEURA: There are no pleural effusions. There is no pneumothorax. UPPER ABDOMEN: No acute findings. OSSEOUS STRUCTURES: Please refer to separately dictated CT abdomen and pelvis report from the same day. IMPRESSION: Bilateral pulmonary nodules measuring up to 9 mm are likely pulmonary metastases. Mildly prominent mediastinal and hilar lymph nodes as above Electronically signed by Matt Alcantar 12-14-2024 7:09 PM
[2024-12-14] MEDS: IRON SUCROSE 400 MG in SODIUM CHLORIDE 0.9% 250 ML IV ONE (20:00)
[2024-12-14] MEDS: FAMOTIDINE 10 MG TABLET PO SCH (20:01)
[2024-12-15 07:28] LABS: Hematocrit (blood only) 36.2 % (42.0-52.0); Hemoglobin 11.8 g/dl (14.0-18.0); Immature Granulocytes # (auto) 0.03 K/uL (0.01-0.20); Immature Granulocytes % (auto) 0.3 %; Mean Corpuscular Hemoglobin 23.7 pg (25.0-34.0); Mean Corpuscular Volume 72.7 fL (80.0-100.0); Platelet Count 335 K/uL (130-400); RDW Standard Deviation 45.8 fL (36.4-46.3); Red Blood Count 4.98 M/uL (4.70-6.10); White Blood Count 10.48 K/ul (4.8-10.8)
[2024-12-15 07:50] LABS: Anion Gap 8.0 (3-11); Blood Urea Nitrogen 13.0 mg/dl (6-23); Calcium 9.1 mg/dl (8.6-10.3); Carbon Dioxide 24.0 mmol/L (21-32); Chloride 103.0 mmol/L (98-107); Creatinine Clr Calc Pharmacy 96.3 ml/min; Glucose 122.0 mg/dl (70-99(Fasting)); Potassium 4.1 mmol/L (3.5-5.1); Sodium 135.0 mmol/L (136-145)
[2024-12-15 09:06] LABS: Hemoglobin A1C 7.0 % (4.5-5.6)
[2024-12-15] MEDS: METOPROLOL SUCC 25MG EXT REL TAB PO SCH (09:11)
[2024-12-15] MEDS: POTASSIUM CHLORIDE 10 MEQ TABCR PO SCH (09:11)
--- NOTE | 2024-12-15 10:32 | Gastrointestinal Consultation ---
Date of Consultation December 15, 2024 Assessment & Plan (1) Anemia: 59 year old male with history of nonischemic cardiomyopathy, chronic HFrEF (EF to 50%) HTN, dyslipidemia, T2DM, MELISSA, obesity, autism and others below admitted through the ED w/ abnormal imaging - concerning for a primary colon cancer (di stal descending colon mass w/ liver lesions, lung nodules and lymph nodes, CEA>850) and LANCE - Clear liquids today - Golytely bowel prep - NPO aftermidnight - Colonoscopy 12/16/24 - Risks, benefits, alternatives discussed - Agreeable to colonoscopy I spent a total of 60 minutes on the date of service in review of patient's record, and previously obtained information in person and appropriate medical visit, discussion and education of plan, with patient and/or caregiver, placing orders for tests/referral/procedures as medically necessary and documentation of pertinent clinical information in patient's medical records for their visit today.Thank you for allowing us to participate in the care of this patient. Please call with any acute changes, questions or concerns. Please see addendum below with additional recommendation from my supervising physician. (2) Colonic mass: Colon mass very high CEA liver metastases. Colonoscopy 2 establish primary diagnosis evaluate for obstruction. Prep: Colonoscopy tomorrow. Risk benefits discussed with patient informed consent obtained. If colon cancer establish I do not think a liver biopsy will be required History of Present Illness Reason for Consultation: colon mass Requesting Physician: Bridger Rosas MD Attending Physician: Bridger Rosas MD History of Present Illness 59 year old male with histort of nonischemic cardiomyopathy, chronic HFrEF (EF to 50%) HTN, dyslipidemia, T2DM, MELISSA, obesity, autism and others below admitted through the ED w/ abnormal imaging - GI asked to evaluate for a colonic mass. He endorses some abd discomfort over the last few months which he notes is hard to describe. He notes some fullness, heartburn type symptoms which initially improved w/ OTC antacids. He later noticed some incomplete evacuation from time to time. He reports his stools have been move daily/every other day. Semi- formed. Brown in color. No black or bloody stools. He has had progressive weight loss. CEA>850 CTAP 2024: Colon cancer at the distal descending colon with liver and lymph node metastatic disease No bowel obstruction or perforation. No ascites. Nonspecific 1.2 cm pulmonary nodule at the right lung base. Differential diagnosis includes pulmonary metastatic disease and infectious/inflammatory nodule. No other acute findings seen. Otherwise as described. He does not think he has had a colonoscopy in the past No family history of colon cancer Allergies Allergy/AdvReac Type Severity Reaction Status Date / Time No Known Allergies Allergy Verified 12/14/24 16:47 Home Medications Medication Instructions Recorded Confirmed Type aspirin 81 mg tablet,delayed 81 mg PO QAM #30 tabs 06/01/22 12/14/24 Rx release atorvastatin 10 mg tablet 10 mg PO QAM #30 tabs 06/01/22 12/14/24 Rx furosemide 20 mg tablet (Lasix) 20 mg PO QAM #30 tabs 06/01/22 12/14/24 Rx lisinopril 2.5 mg tablet 2.5 mg PO QAM #30 tabs 06/01/22 12/14/24 Rx metoprolol succinate 25 mg 12.5 mg (1/2 x 25 mg) PO QAM #30 06/01/22 12/14/24 Rx tablet,extended release 24 hr tabs spironolactone 25 mg tablet 12.5 mg (1/2 x 25 mg) PO QAM #30 06/01/22 12/14/24 Rx tabs ascorbic acid (vitamin C) 250 mg 250 mg PO DAILY 12/14/24 12/14/24 History tablet (Vitamin C) famotidine 10 mg tablet 10 mg PO BID 12/14/24 12/14/24 History potassium chloride 10 mEq 10 meq PO DAILY 12/14/24 12/14/24 History capsule,extended release Patient History Medical History Electrocardiogram showing normal QRS interval No pertinent past medical history Surgical History History of cardiac catheterization 2022 Family History (Updated 12/14/24 @ 17:06 by Kayley Mtz PA-C) Other Coronary heart disease Hx of heart bypass surgery Prostate cancer Social History Smoking Status: Never smoker Second Hand Exposure: No; Do You Dip or Chew Tobacco: No; Tobacco Cessation Education Requested by Patient: No Hx Alcohol Use: No Hx Substance Use: No Preferred Language: Estonian Communication Ability: Effective Awake Overnight Monitor Required: No Beliefs That Will Affect Care: None marital status: Current Living Situation: Boarding Home Current Living Situation Comment: [facility] Other Information That Helps Us Care for You: No Feels Safe at Home: Yes Safety Concerns: Feels Safe At This Time Assistive Devices: CPAP and Glasses Review of Systems Review of Systems: All other findings negative except as noted in HPI. Physical Exam Constitutional: WD/WN, vitals as above Respiratory: normal respiratory effort, lungs clear to auscultation Gastrointestinal (Abdomen): Inspection/Auscultation: normal bowel sounds Percussion/Palpation: abdomen soft Skin: no rashes, warm and dry Results & Data Vital Signs (Past 12 Hours) Vital Signs Temp Pulse Pulse Resp BP Pulse Ox O2 Del Method 12/15/24 08:00 Room Air 12/15/24 08:00 79 12/15/24 07:38 97.5 F L 18 L 20 136/81 95 Room Air 12/15/24 03:12 97.9 F 78 20 125/74 95 Room Air 12/15/24 00:16 97.7 F 78 20 131/77 94 Room Air Laboratory Results 12/15/24 12/14/24 12/14/24 Range/Units 06:56 19:49 14:28 WBC 10.48 (4.8-10.8) K/ul RBC 4.98 (4.70-6.10) M/uL Hgb 11.8 L (14.0-18.0) g/dl POC Hgb 13.3 L (14.0-18.0) g/dl Hct 36.2 L (42.0-52.0) % POC Hct 39 L (42-52) % MCV 72.7 L (80.0-100.0) fL MCH 23.7 L (25.0-34.0) pg MCHC 32.6 (32.0-36.0) g/dL RDW Std Deviation 45.8 (36.4-46.3) fL RDW Coeff of Junito 17.3 H (11.5-14.5) % Plt Count 335 (130-400) K/uL MPV 8.9 L (9.4-12.4) fL Immature Gran % (Auto) 0.3 % Neut % (Auto) 64.1 % Lymph % (Auto) 15.3 % [place] % (Auto) 9.9 % Eos % (Auto) 9.4 % Baso % (Auto) 1.0 % Neut # (Auto) 6.72 H (1.40-6.50) K/uL Lymph # (Auto) 1.60 (1.20-3.40) K/uL [place] # (Auto) 1.04 H (0.11-0.59) K/uL Eos # (Auto) 0.99 H (0.00-0.50) K/uL Baso # (Auto) 0.10 (0.00-0.20) K/uL Immature Gran # (Auto) 0.03 (0.01-0.20) K/uL PT (9.0-12.0) Seconds INR (0.9-1.1) POC Sodium 136 (135-144) mmol/L Sodium 135 L (136-145) mmol/L POC Potassium 3.8 (3.3-5.0) mmol/L Potassium 4.1 (3.5-5.1) mmol/L POC Chloride 103 (101-112) mmol/L Chloride 103 (98-107) mmol/L Carbon Dioxide 24 (21-32) mmol/L POC Total CO2 22 L (24-31) mmol/L Anion Gap 8 (3-11) POC Anion Gap 15.0 L (16-25) mmol/L POC BUN 14 (7-18) mg/dl BUN 13 (6-23) mg/dl Creatinine 1.00 (0.6-1.4) mg/dl POC Creatinine 1.3 (0.6-1.3) mg/dl Est Cr Clr Drug Dosing 96.3 ml/min eGFR 86.16 BUN/Creatinine Ratio 13.0 (10-20) Glucose 122 H (70-99(Fasting)) mg/dl POC Glucose (other) 115 H (70-99) mg/dl Estimat Average Glucose 154 mg/dl Hemoglobin A1c 7.0 H (4.5-5.6) % Calcium 9.1 (8.6-10.3) mg/dl POC Ioniz Calcium Aron 1.16 (1.12-1.32) mmol/l Iron (35-175) mcg/dl TIBC (250-450) mcg/dl Unsaturated IBC (155-355) mcg/dl Transferrin (200-360) mg/dl Transferrin % Sat (20-50) % Ferritin (8-388) ng/ml Total Bilirubin (0.2-1.0) mg/dl AST (13-39) U/L ALT (7-52) U/L Alkaline Phosphatase (34-104) U/L Lactate Dehydrogenase (86-244) U/L Troponin I High Sens (0-20) pg/ml C-Reactive Protein (0-0.5) mg/dl Total Protein (6.0-8.3) gm/dl Albumin (3.4-5.0) gm/dl Globulin (2.5-4.0) gm/dl Albumin/Globulin Ratio (0.9-2) Lipase (11-82) U/L Tumor Marker AFP Pending Carcinoembryonic Ag (0-2.5) ng/ml CA 19-9 Antigen Pending CA 125 Antigen Pending Urine Color Urine Appearance (Clear) Urine pH (4.5-7.5) Ur Specific [place] (1.000-1.030) Urine Protein (Negative) Urine Glucose (UA) (Negative) Urine Ketones (Negative) Urine Blood (Negative) Urine Nitrite (Negative) Urine Bilirubin (Negative) Urine Urobilinogen (Negative) Ur Leukocyte Esterase (Negative) Urine Comment 12/14/24 Range/Units 14:22 WBC 12.54 H (4.8-10.8) K/ul RBC 5.12 (4.70-6.10) M/uL Hgb 11.9 L (14.0-18.0) g/dl POC Hgb (14.0-18.0) g/dl Hct 37.2 L (42.0-52.0) % POC Hct (42-52) % MCV 72.7 L (80.0-100.0) fL MCH 23.2 L (25.0-34.0) pg MCHC 32.0 (32.0-36.0) g/dL RDW Std Deviation 45.5 (36.4-46.3) fL RDW Coeff of Junito 17.5 H (11.5-14.5) % Plt Count 380 (130-400) K/uL MPV 8.9 L (9.4-12.4) fL Immature Gran % (Auto) 0.4 % Neut % (Auto) 64.3 % Lymph % (Auto) 19.9 % [place] % (Auto) 8.9 % Eos % (Auto) 5.8 % Baso % (Auto) 0.7 % Neut # (Auto) 8.06 H (1.40-6.50) K/uL Lymph # (Auto) 2.49 (1.20-3.40) K/uL [place] # (Auto) 1.12 H (0.11-0.59) K/uL Eos # (Auto) 0.73 H (0.00-0.50) K/uL Baso # (Auto) 0.09 (0.00-0.20) K/uL Immature Gran # (Auto) 0.05 (0.01-0.20) K/uL PT 11.3 (9.0-12.0) Seconds INR 1.1 (0.9-1.1) POC Sodium (135-144) mmol/L Sodium 134 L (136-145) mmol/L POC Potassium (3.3-5.0) mmol/L Potassium 3.8 (3.5-5.1) mmol/L POC Chloride (101-112) mmol/L Chloride 101 (98-107) mmol/L Carbon Dioxide 23 (21-32) mmol/L POC Total CO2 (24-31) mmol/L Anion Gap 10 (3-11) POC Anion Gap (16-25) mmol/L POC BUN (7-18) mg/dl BUN 14 (6-23) mg/dl Creatinine 1.15 (0.6-1.4) mg/dl POC Creatinine (0.6-1.3) mg/dl Est Cr Clr Drug Dosing 84.1 ml/min eGFR 72.86 BUN/Creatinine Ratio 12.2 (10-20) Glucose 112 H (70-99(Fasting)) mg/dl POC Glucose (other) (70-99) mg/dl Estimat Average Glucose mg/dl Hemoglobin A1c (4.5-5.6) % Calcium 9.2 (8.6-10.3) mg/dl POC Ioniz Calcium Aron (1.12-1.32) mmol/l Iron 26 L (35-175) mcg/dl TIBC 400 (250-450) mcg/dl Unsaturated IBC 374 H (155-355) mcg/dl Transferrin 322 (200-360) mg/dl Transferrin % Sat 7 L (20-50) % Ferritin 15.4 (8-388) ng/ml Total Bilirubin 0.4 (0.2-1.0) mg/dl AST 19 (13-39) U/L ALT 18 (7-52) U/L Alkaline Phosphatase 105 H (34-104) U/L Lactate Dehydrogenase 194 (86-244) U/L Troponin I High Sens 4.8 (0-20) pg/ml C-Reactive Protein 1.73 H (0-0.5) mg/dl Total Protein 7.7 (6.0-8.3) gm/dl Albumin 4.4 (3.4-5.0) gm/dl Globulin 3.3 (2.5-4.0) gm/dl Albumin/Globulin Ratio 1.3 (0.9-2) Lipase 24 (11-82) U/L Tumor Marker AFP Carcinoembryonic Ag > 850.0 H (0-2.5) ng/ml CA 19-9 Antigen CA 125 Antigen Urine Color Yellow Urine Appearance Clear (Clear) Urine pH 7.0 (4.5-7.5) Ur Specific [place] 1.016 (1.000-1.030) Urine Protein Negative (Negative) Urine Glucose (UA) Negative (Negative) Urine Ketones Negative (Negative) Urine Blood Negative (Negative) Urine Nitrite Negative (Negative) Urine Bilirubin Negative (Negative) Urine Urobilinogen Negative (Negative) Ur Leukocyte Esterase Negative (Negative) Urine Comment PG Care Time/CCT Total # of Minutes Spent Total Time Spent with Patient: Total time spent is greater than 50% in coordination of care (as documented) at patient's floor/unit and/or counseling patient: Coding Level of Care Code 25531 INT INP/OBS CARE 2/55MIN Diagnoses Anemia D64.9 Colonic mass K63.89
--- NOTE | 2024-12-15 10:53 | Hospitalist Progress Note ---
Date of Service December 15, 2024 Assessment & Plan (1) Colonic mass: (2) Abnormal computed tomography of abdomen and pelvis: Plan: Patient is 59-year-old male with PMH nonischemic cardiomyopathy, chronic HFrEF, most recent echo in 07/2024 with improved EF to 50%, HTN, dyslipidemia, DM II, MELISSA, obesity, autistic disorder presented to ER with c/o "abnormal labs" - elevated WBC of 13 yesterday and ongoing intermittent abdominal bloating and discomfort. Possible metastatic colon cancer Patient presented to the hospital with abdominal discomfort, abdominal bloating, weight loss. CT abdomen/pelvis shows colon mass and distal descending colon with multiple liver masses and lymph node enlargement. CT chest shows bilateral pulmonary nodules measuring up to 9 mm CEA elevated GI consulted for comanagement; plan for colonoscopy tomorrow. CT-guided biopsy for liver mets was ordered for IR; they recommend patient to be off aspirin for [address] Puga from cancer care; liver biopsy to be arranged as outpatient after patient follows up. (3) Anemia: Plan: Iron deficiency anemia, secondary to colon mass Received IV Venofer (4) Nonischemic cardiomyopathy: Plan: #Chronic Heart failure #H/O HFrEF, most recent echo in 07/2024 with improved EF to 50% 07/20/2024 echo: EF: 50%, mild mitral regurgitation, aortic root mildly enlarged 05/31/2022 cardiac catheterization: Minimal nonobstructive CAD Clinically examines fairly euvolemic Continue home metoprolol, lisinopril, furosemide, spironolactone, atorvastatin Hold Aspirin Type 2 diabetes [id number] was found to be 7.0%; plan for dietary measures, lifestyle changes; hold off on additional meds at this time as patient is losing weight/has possibly newly diagnosed CA (5) MELISSA (obstructive sleep apnea): Plan: CPAP HS DVT Prophylaxis- SCDS Full code Updated patient's brother and [id number] over the phone regarding plan of care as per patient's request. They are in agreement with the plan. Time spent evaluating patient, direct bedside care, chart review, placing orders, interpretation of diagnostic studies, discussion with consultants, patient, and family members, as well as other required patient management activities is 50 minutes Please note the above document was generated using voice recognition software. It may contain grammatical, syntax or spelling errors. Any formal questions or concerns about the content, text or information contained within the body of this dictation should be directly addressed to the provider for clarification Admission and Anticipated Discharge Date Admission Date: December 14, 2024 Subjective Patient seen and examined at bedside. He is comfortable; not in distress. Denies any pain or discomfort. Review of Systems Review of Systems: All systems reviewed & are unremarkable except as noted in Subjective Physical Exam Physical Exam: General: no distress, obese male Neck: supple, trachea midline Lungs: clear, no respiratory distress, no wheezing/rhonchi/rales CV: RRR, no murmur, no pretibial edema Abd:soft, non-tender Ext: no cyanosis, no calf tenderness Neuro: A&O x 3, no focal deficits noted, normal affect Skin: warm, dry Results & Data Results & Data Vital Signs (Past 12 Hours) Vital Signs Temp Pulse Pulse Resp BP Pulse Ox O2 Del Method 12/15/24 08:00 Room Air 12/15/24 08:00 79 12/15/24 07:38 36.4 C L 18 L 20 136/81 95 Room Air 12/15/24 03:12 36.6 C 78 20 125/74 95 Room Air 12/15/24 00:16 36.5 C 78 20 131/77 94 Room Air
[2024-12-15] MEDS: FUROSEMIDE 20 MG TAB PO SCH (11:48)
[2024-12-15] MEDS: ATORVASTATIN 10 MG TAB PO SCH (11:48)
[2024-12-15] MEDS: SPIRONOLACTONE 12.5 MG TAB PO SCH (11:49)
[2024-12-15] MEDS: LAVAGE SOLUTION 4000ML PO SCH (17:13)
[2024-12-16 07:24] LABS: Hematocrit (blood only) 36.8 % (42.0-52.0); Hemoglobin 11.7 g/dl (14.0-18.0); Immature Granulocytes # (auto) 0.03 K/uL (0.01-0.20); Immature Granulocytes % (auto) 0.3 %; Mean Corpuscular Hemoglobin 23.1 pg (25.0-34.0); Mean Corpuscular Volume 72.6 fL (80.0-100.0); Platelet Count 364 K/uL (130-400); RDW Standard Deviation 45.1 fL (36.4-46.3); Red Blood Count 5.07 M/uL (4.70-6.10); White Blood Count 10.40 K/ul (4.8-10.8)
[2024-12-16 07:47] LABS: Anion Gap 9.0 (3-11); Blood Urea Nitrogen 12.0 mg/dl (6-23); Calcium 9.3 mg/dl (8.6-10.3); Carbon Dioxide 24.0 mmol/L (21-32); Chloride 101.0 mmol/L (98-107); Creatinine Clr Calc Pharmacy 111.7 ml/min; Glucose 117.0 mg/dl (70-99(Fasting)); Potassium 3.8 mmol/L (3.5-5.1); Sodium 134.0 mmol/L (136-145)
--- NOTE | 2024-12-16 09:44 | Gastroenterology Progress Note ---
Date of Service December 16, 2024 Assessment & Plan (1) Anemia: Plan: 59 year old male with history of nonischemic cardiomyopathy, chronic HFrEF (EF to 50%) HTN, dyslipidemia, T2DM, MELISSA, obesity, autism and others below admitted through the ED w/ abnormal imaging - concerning for a primary colon cancer (distal descending colon mass w/ liver lesions, lung nodules and lymph nodes, CEA>850) and LANCE - NPO for Colonoscopy 12/16/24 We appreciate assistance in the management of any serological abnormality and corrections to include: hemoglobin >7, INR <2, platelets >50,000, potassium levels >3.5 but <5.3, and sodium levels within 5 points of the reference range prior to endoscopic evaluation. (2) Colonic mass: Plan: Colon mass very high CEA liver metastases. Colonoscopy 2 establish primary diagnosis evaluate for obstruction. Prep: Colonoscopy tomorrow. Risk benefits discussed with patient informed consent obtained. If colon cancer establish I do not think a liver biopsy will be required Admission and Anticipated Discharge Date Admission Date: December 14, 2024 Supervising Physician Co-Signing Physician Notes Less distended. Blood with prep. Colonoscopy today to establish primary colon cancer. Risk benefits addressed informed consent obtained Subjective NPO for colonoscopy. Endorses liquid stools. Did see some BRB with the prep. No abd pain. Feels less bloated. No nausea/vomiting. Review of Systems Review of Systems: All other findings negative except as noted in HPI. Physical Exam Gastrointestinal (Abdomen): normal bowel sounds, soft, nontender, no hepatosplenomegaly Results & Data Results & Data Vital Signs (Past 12 Hours) Vital Signs Temp Pulse Pulse Pulse Resp BP Pulse Ox 12/16/24 07:49 98.1 F 92 H 17 122/78 96 12/16/24 03:37 97.5 F L 91 H 20 106/70 95 12/15/24 23:36 97.3 F L 83 20 118/68 98 12/15/24 22:00 86 O2 Del Method 12/16/24 07:49 Room Air 12/16/24 03:37 Room Air 12/15/24 23:36 Room Air 12/15/24 22:00 Laboratory Results 12/16/24 Range/Units 06:48 WBC 10.40 (4.8-10.8) K/ul RBC 5.07 (4.70-6.10) M/uL Hgb 11.7 L (14.0-18.0) g/dl Hct 36.8 L (42.0-52.0) % MCV 72.6 L (80.0-100.0) fL MCH 23.1 L (25.0-34.0) pg MCHC 31.8 L (32.0-36.0) g/dL RDW Std Deviation 45.1 (36.4-46.3) fL RDW Coeff of Junito 17.3 H (11.5-14.5) % Plt Count 364 (130-400) K/uL MPV 8.8 L (9.4-12.4) fL Immature Gran % (Auto) 0.3 % Neut % (Auto) 63.1 % Lymph % (Auto) 19.4 % [place] % (Auto) 9.2 % Eos % (Auto) 7.3 % Baso % (Auto) 0.7 % Neut # (Auto) 6.56 H (1.40-6.50) K/uL Lymph # (Auto) 2.02 (1.20-3.40) K/uL [place] # (Auto) 0.96 H (0.11-0.59) K/uL Eos # (Auto) 0.76 H (0.00-0.50) K/uL Baso # (Auto) 0.07 (0.00-0.20) K/uL Immature Gran # (Auto) 0.03 (0.01-0.20) K/uL Sodium 134 L (136-145) mmol/L Potassium 3.8 (3.5-5.1) mmol/L Chloride 101 (98-107) mmol/L Carbon Dioxide 24 (21-32) mmol/L Anion Gap 9 (3-11) BUN 12 (6-23) mg/dl Creatinine 0.86 (0.6-1.4) mg/dl Est Cr Clr Drug Dosing 111.7 ml/min eGFR 99.13 BUN/Creatinine Ratio 14.0 (10-20) Glucose 117 H (70-99(Fasting)) mg/dl Calcium 9.3 (8.6-10.3) mg/dl PG Care Time/CCT Total # of Minutes Spent Total Time Spent with Patient: Total time spent is greater than 50% in coordination of care (as documented) at patient's floor/unit and/or counseling patient: Coding Level of Care Code None Diagnoses Anemia D64.9 Colonic mass K63.89
[2024-12-16] MEDS: SODIUM CHLORIDE 0.9% 500 ML IV SCH (13:43)
--- NOTE | 2024-12-16 13:56 | Anesthesiology Consultation ---
Date of Service December 16, 2024 Assessment & Plan Chart Review Chart Review: Acceptable Risk for Surgery Consults Requested none ASA ASA3 Proposed Anesthesia Anesthesia Type: MAC Risk / Benefits Reviewed With: PT / POA / Parent / Guardian, Accepts Plan and Informed Consent Obtained History Surgery Operation Date: 12/16/24 16:45 Proposed Procedures p Colonoscopy Dr. Alec Michael MD Colonoscopy for concern for colonic mass seen on CT Height/Weight Height: 5 ft 11 in Weight: 103.2 kg Allergies Allergy/AdvReac Type Severity Reaction Status Date / Time No Known Allergies Allergy Verified 12/16/24 13:38 Medications Home Medications Medication Instructions Recorded Confirmed Last Taken aspirin 81 mg tablet,delayed 81 mg PO QAM #30 tabs 06/01/22 12/14/24 12/14/24 release atorvastatin 10 mg tablet 10 mg PO QAM #30 tabs 06/01/22 12/14/24 12/14/24 furosemide 20 mg tablet (Lasix) 20 mg PO QAM #30 tabs 06/01/22 12/14/24 12/14/24 lisinopril 2.5 mg tablet 2.5 mg PO QAM #30 tabs 06/01/22 12/14/24 12/14/24 metoprolol succinate 25 mg 12.5 mg (1/2 x 25 mg) PO QAM #30 06/01/22 12/14/24 12/14/24 tablet,extended release 24 hr tabs spironolactone 25 mg tablet 12.5 mg (1/2 x 25 mg) PO QAM #30 06/01/22 12/14/24 12/14/24 tabs ascorbic acid (vitamin C) 250 mg 250 mg PO DAILY 12/14/24 12/14/24 12/14/24 tablet (Vitamin C) famotidine 10 mg tablet 10 mg PO BID 12/14/24 12/14/24 12/14/24 potassium chloride 10 mEq 10 meq PO DAILY 12/14/24 12/14/24 Unknown capsule,extended release Active Medications Generic Name Dose Route Start Last Admin Trade Name Freq PRN Reason Stop Dose Admin Atorvastatin Calcium 10 mg 12/15/24 09:00 12/15/24 11:48 Atorvastatin 10 Mg Tab PO 01/14/25 08:59 10 mg QAM XANDER Administration Famotidine 10 mg 12/14/24 21:00 10/14/25 20:10 Famotidine 10 Mg Tablet PO 01/13/25 20:59 10 mg BID XANDER Administration Furosemide 20 mg 12/15/24 09:00 12/15/24 11:48 Furosemide 20 Mg Tab PO 01/14/25 08:59 20 mg QAM XANDER Administration Sodium Chloride 500 mls @ 15 mls/hr 12/16/24 07:30 12/16/24 13:43 Nss IV 12/17/24 07:29 15 mls/hr .Q24H XANDER Administration Lisinopril 2.5 mg 12/15/24 09:00 12/15/24 11:48 Lisinopril 2.5 Mg Tab PO 01/14/25 08:59 2.5 mg QAM XANDER Administration Metoprolol Succinate 12.5 mg 12/15/24 09:00 12/16/24 09:08 Metoprolol Succ 25mg Ext Rel Tab PO 01/14/25 08:59 12.5 mg QAM XANDER Administration Potassium Chloride 10 meq 12/15/24 09:00 12/15/24 09:11 Potassium Chloride 10 Meq Tabcr PO 01/14/25 08:59 10 meq DAILY XANDER Administration Spironolactone 12.5 mg 12/15/24 09:00 12/15/24 11:49 Spironolactone 12.5 Mg Tab PO 01/14/25 08:59 12.5 mg QAM XANDER Administration NPO Date Last Intake of Fluids: 12/16/24 Time Last Intake of Fluids: 08:00 Last Intake of Fluids Comment: pills Date Last Intake of Solids: 12/13/24 Time Last Intake of Solids: 18:00 Past Medical History Medical History Electrocardiogram showing normal QRS interval No pertinent past medical history Exercise / Class Metabolic Activity II 4-5 Yardwork/Stairs/Walk up hill Past Family History Family History Other Coronary heart disease Hx of heart bypass surgery Prostate cancer Past Surgical History Surgical History History of cardiac catheterization 2022 Past Anesthesia History No Hx of Anesthesia Complications History of PONV No Hx of PONV Social History Smoking Status: Never smoker Do You Dip or Chew Tobacco: No Hx Alcohol Use: No Hx Substance Use: No substance use type: does not use Review of Systems Constitutional: as per Subjective / HPI Respiratory: as per Subjective / HPI Cardiovascular: as per Subjective / HPI Gastrointestinal: + bloating Neurologic: as per Subjective / HPI Hematologic / Lymphatic: as per Subjective / HPI Allergy / Immunological: as per Subjective / HPI Physical Exam Vital Signs Last Vital Signs Temp 36.7 C 12/16/24 13:38 Pulse 84 12/16/24 13:38 Resp 16 12/16/24 13:38 BP 137/74 12/16/24 13:38 Pulse Ox 97 12/16/24 13:38 O2 Del Method Room Air 12/16/24 13:38 Constitutional no acute distress ENMT Mouth: no TMJ abnormality and no dentition abnormality Mallampati Class: III Neck normal visual inspection Respiratory normal respiratory effort, lungs clear to auscultation normal respiratory effort Auscultation: lungs clear to auscultation bilaterally Cardiovascular RRR, no murmur, no edema Rate/Rhythm: regular rate and regular rhythm Musculoskeletal Spine: normal cervical ROM Neurologic moves all extremities Psychiatric Orientation: alert and oriented x 3 Testing Laboratory Results 12/16/24 06:48 12/16/24 06:48 PT 11.3 Seconds (9.0-12.0) 12/14/24 14:22 INR 1.1 (0.9-1.1) 12/14/24 14:22 Hemoglobin A1c 7.0 % (4.5-5.6) H 12/15/24 06:56 Urine Color Yellow 12/14/24 14:22 Urine Appearance Clear (Clear) 12/14/24 14:22 Urine pH 7.0 (4.5-7.5) 12/14/24 14:22 Ur Specific [place] 1.016 (1.000-1.030) 12/14/24 14:22 Urine Protein Negative (Negative) 12/14/24 14:22 Urine Glucose (UA) Negative (Negative) 12/14/24 14:22 Urine Ketones Negative (Negative) 12/14/24 14:22 Urine Nitrite Negative (Negative) 12/14/24 14:22 Ur Leukocyte Esterase Negative (Negative) 12/14/24 14:22
--- NOTE | 2024-12-16 14:14 | Hospitalist Progress Note ---
Date of Service December 16, 2024 Assessment & Plan (1) Colonic mass: Plan 59-year-old male with PMH nonischemic cardiomyopathy, chronic HFrEF, most recent echo in 07/2024 with improved EF to 50%, HTN, dyslipidemia, DM II, MELISSA, obesity, autistic disorder presented to ER with c/o "abnormal labs" - elevated WBC of 13 and ongoing intermittent abdominal bloating and discomfort. Colonic mass Possible metastatic colon cancer Abnormal computed tomography of abdomen and pelvis: Patient presented to the hospital with abdominal discomfort, abdominal bloating, weight loss. CT abdomen/pelvis shows colon mass and distal descending colon with multiple liver masses and lymph node enlargement. CT chest shows bilateral pulmonary nodules measuring up to 9 mm CEA elevated GI consulted for comanagement; plan for colonoscopy today. CT-guided biopsy for liver mets was ordered for IR; they recommend patient to be off aspirin for 5 days. Pt to f/u w/ Dr Puga upon DC for further management/+- liver biopsy. Anemia: Iron deficiency anemia, secondary to colon mass Received IV Venofer. Get folate and b12 level repeat levels in 3 months. Nonischemic cardiomyopathy: Chronic Heart failure H/O HFrEF, most recent echo in 07/2024 with improved EF to 50% 07/20/2024 echo: EF: 50%, mild mitral regurgitation, aortic root mildly enlarged 05/31/2022 cardiac catheterization: Minimal nonobstructive CAD Clinically examines fairly euvolemic Continue home metoprolol, lisinopril, furosemide, spironolactone, atorvastatin Hold Aspirin Type 2 diabetes [id number] was found to be 7.0%; plan for dietary measures, lifestyle changes; hold off on additional meds at this time as patient is losing weight/has possibly newly diagnosed CA MELISSA (obstructive sleep apnea): CPAP HS DVT Prophylaxis- SCDS Full code Please note the above document was generated using voice recognition software. It may contain grammatical, syntax or spelling errors. Any formal questions or concerns about the content, text or information contained within the body of this dictation should be directly addressed to the provider for clarification Admission and Anticipated Discharge Date Admission Date: December 14, 2024 Subjective Patient seen and examined at bedside. He is comfortable; not in distress. Denies bloating, reports loose stools w/ bowel prep. Denies any pain or discomfort. Physical Exam Physical Exam: General: no distress, obese male Neck: supple, trachea midline Lungs: clear, no respiratory distress, no wheezing/rhonchi/rales CV: RRR, no murmur, no pretibial edema Abd:soft, non-tender Ext: no cyanosis, no calf tenderness Neuro: A&O x 3, no focal deficits noted, normal affect Skin: warm, dry Results & Data Results & Data Vital Signs (Past 12 Hours) Vital Signs Temp Pulse Pulse Pulse Resp BP BP 12/16/24 13:38 36.7 C 84 16 137/74 12/16/24 11:10 36.6 C 62 17 122/65 12/16/24 08:00 105 H 12/16/24 08:00 12/16/24 07:49 36.7 C 92 H 17 122/78 12/16/24 03:37 36.4 C L 91 H 20 106/70 Pulse Ox O2 Del Method 12/16/24 13:38 97 Room Air 12/16/24 11:10 93 Room Air 12/16/24 08:00 12/16/24 08:00 Room Air 12/16/24 07:49 96 Room Air 12/16/24 03:37 95 Room Air
--- NOTE | 2024-12-16 14:32 | Communication Note ---
Date of Service: December 16, 2024 Colonoscopy report Obstructing neoplasia at about 40 cm consistent with sigmoid cancer. Scope switched to a thin EGD scope. Still I am unable to pass safely through the tumor lumen. Multiple biopsies performed. Colon tattooed 5 cm distal to the obstructing lesion. Remain on clear liquids. Recommend colorectal surgery consult. This tumor would be difficult to endoscopically stent as we cannot pass through the actual tumor.
--- NOTE | 2024-12-16 14:46 | GI REPORT ---
[facility] Patient: BREE GARCIA : 1965 Sex at : Male Age: 59 Years Procedure: Colonoscopy Date: 12/16/2024 Attending Physician: Jak Michael MD Referring MD: Davis Ramos Md Indications: - Colon mass for evaluation of colon neoplasia biopsies and tattooing Medications: - Monitored Anesthesia Care Complications: - No immediate complications. Estimated Blood Loss: - Estimated blood loss was minimal. Procedure: - The adult colonoscope was introduced through the anus and advanced to the sigmoid colon. - The egd scope was introduced through the anus and advanced to the sigmoid colon. - The colonoscopy was performed without difficulty. - The quality of the bowel preparation was fair. Findings: - The perianal examination was normal. - A fungating completely obstructing mass was found in the sigmoid colon. The mass was circumferential. Oozing was present. Biopsies were taken with a cold forceps for histology. Area was tattooed with an injection of 2 mL of Spot (carbon black). Estimated blood loss was minimal. Impression: - Preparation of the colon was fair. - Likely malignant completely obstructing tumor in the sigmoid colon. Biopsied. Tattooed. Recommendation: - Await pathology results. - Colorectal surgery consultation. He has an obstructing lesion that we could not pass a regular EGD scope through. Patient will require resection. This would not be easily amenable to endoscopic stenting based on the angulated area of the sigmoid colon descending colon junction and inability to pass the scope through for the stent placement. Procedure Code(s): - 54406-04, Colonoscopy, flexible; with directed submucosal injection(s), any substance - 81798-48, Colonoscopy, flexible; with biopsy, single or multiple Diagnosis Code(s): - D49.0, Neoplasm of unspecified behavior of digestive system - K56.691, Other complete intestinal obstruction CPT(R) - 2023 copyright [employer]. All Rights Reserved. The CPT codes, CCI edits and ICD codes generated are intended as suggestions and were generated based on input data. These codes are preliminary and upon survey instrument operator review may be revised to meet current compliance and payer requirements. The provider is responsible for the final determination of appropriate codes, and modifiers. Jak Michael MD This document has been electronically signed. Note Initiated:12/16/2024 Note Completed:12/16/2024 2:45 PM \\[facility]\Central\InterfaceData\Data\Provation\Results\LIVE\[id number].pdf
--- NOTE | 2024-12-16 15:02 | Surgery Consultation ---
Date of Consultation December 16, 2024 Assessment & Plan (1) Colonic mass: This is a 59y M with a PMH of nonischemic cardiomyopathy, chronic heart failure, HTN, dyslipidemia, DM II, MELISSA, obesity, autistic disorder presented to ER on 12/14 with abnormal outpatient labs. In the ER he underwent a CT a/p that showed concern for colon cancer at the distal descending colon with liver and lymph node metastatic disease. It does not reveal SBO or perforation. He also underwent a Chest CT which showed bilateral pulmonary nodules measuring up to 9 mm are likely pulmonary metastases. The patient was admitted to the hospital for further workup with GI consultation. Today patient underwent a colonoscopy which revealed an obstructing neoplasia at about 40 cm consistent with sigmoid cancer. Unable to traverse even with a thin EGD scope. Biopsys were taken and the area of tattoo was concerned. It sounds like over the last couple of years he has been dealing with abdominal bloating, bulging, with now more recent issues with heart burn, some nausea and constipation and worsening abdominal bloating that he has been seeking workup for. Labs today show WBC 10.4, Hbg 11.7, Cr 0.8. CEA >850. Vital signs are stable. On examination patient is resting in bed s/p colonoscopy. He is in no distress. Abdomen is softly distended without any tenderness to palpation. Colonoscopy results reviewed concerning for obstructing mass in the sigmoid not amenable to stenting as unable to traverse the area. Area biopsied and tattooed. There is concern on imaging for metastatic spread in the LNs, liver, and lungs. Patient may require a surgery for ostomy in the event the mass from becomes more obstructive and symptomatic. Patient is still actively recovering from c-scope. We will discuss more in detail with patient tomorrow and with the colorectal surgeon History of Present Illness Attending Physician: Davis Ramos MD History of Present Illness This is a 59y M with a PMH of nonischemic cardiomyopathy, chronic heart failure, HTN, dyslipidemia, DM II, MELISSA, obesity, autistic disorder presented to ER on 12/14 with apparently abnormal out patient labs, mostly an elevated WBC. He was referred to the ER was initially underwent a CT a/p that showed concern for colon cancer at the distal descending colon with liver and lymph node metastatic disease. It does not reveal SBO or perforation. He also underwent a Chest CT which showed bilateral pulmonary nodules measuring up to 9 mm are likely pulmonary metastases. The patient was admitted to the hospital for further workup with GI consultation. He underwent a colonoscopy today which shows a lesion concerning for malignancy and obstructing in the sigmoid colon. Patient was evaluated in the endo recovery room. He tells me that 2yrs ago he had issues with abdominal bloating/bulging and swelling of the hands and feet of which workup was apparently pointing to a cardiac etiology. He still felt like something was wrong in the abdomen, but could not figure out what it was. Since then, over the last 2 years he has since then had some weight loss, some intentional with diet and mountain biking he went from 265lbs to 227lbs. Then over the last several weeks he has been noticing more issues with abdominal bloating/bulging and what sounds like heart burn type symptoms. He takes he gets some relief with pepto but still had the abdominal pressure. He tells me he has intermittent issues with constipation, but otherwise usually has a daily BM. Lately he feels the sensation like he has to go and sometimes can't. He tells me he is passing gas. He told me he normally eats without a problem but with the start of these symptoms again he has had some nausea. He endorses seeing blood in the stool before, but it always went away and did not happen often. He never had surgery on the abdomen before. Today was his first colonoscopy. Allergies Allergy/AdvReac Type Severity Reaction Status Date / Time No Known Allergies Allergy Verified 12/16/24 13:38 Home Medications Medication Instructions Recorded Confirmed Type aspirin 81 mg tablet,delayed 81 mg PO QAM #30 tabs 06/01/22 12/14/24 Rx release atorvastatin 10 mg tablet 10 mg PO QAM #30 tabs 06/01/22 12/14/24 Rx furosemide 20 mg tablet (Lasix) 20 mg PO QAM #30 tabs 06/01/22 12/14/24 Rx lisinopril 2.5 mg tablet 2.5 mg PO QAM #30 tabs 06/01/22 12/14/24 Rx metoprolol succinate 25 mg 12.5 mg (1/2 x 25 mg) PO QAM #30 06/01/22 12/14/24 Rx tablet,extended release 24 hr tabs spironolactone 25 mg tablet 12.5 mg (1/2 x 25 mg) PO QAM #30 06/01/22 12/14/24 Rx tabs ascorbic acid (vitamin C) 250 mg 250 mg PO DAILY 12/14/24 12/14/24 History tablet (Vitamin C) famotidine 10 mg tablet 10 mg PO BID 12/14/24 12/14/24 History potassium chloride 10 mEq 10 meq PO DAILY 12/14/24 12/14/24 History capsule,extended release Patient History Medical History Electrocardiogram showing normal QRS interval No pertinent past medical history Surgical History History of cardiac catheterization 2022 Family History Other Coronary heart disease Hx of heart bypass surgery Prostate cancer Social History Smoking Status: Never smoker Second Hand Exposure: No; Do You Dip or Chew Tobacco: No; Tobacco Cessation Education Requested by Patient: No Hx Alcohol Use: No Hx Substance Use: No Preferred Language: Tuvaluan Communication Ability: Effective 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 Beliefs That Will Affect Care: None marital status: Current Living Situation: Boarding Home Current Living Situation Comment: [facility] Other Information That Helps Us Care for You: No Feels Safe at Home: Yes Safety Concerns: Feels Safe At This Time Assistive Devices: CPAP and Glasses Review of Systems Constitutional: + weight loss; no fever, no chills, no f atigue and no weakness Respiratory: no dyspnea Cardiovascular: no chest pain Gastrointestinal: + bloating, + heartburn, + nausea, + con stipation and + blood in stools (seldomly); no abdominal pain Neurologic: no dizziness and no headache(s) Physical Exam Physical Exam: a little sleepy coming out of endo recovery, but is awake and able to converse without any issues Respiratory: normal respiratory effort Gastrointestinal (Abdomen): Inspection/Auscultation: + abdomen distended; no abdominal surgical scar Percussion/Palpation: abdomen soft; abdomen nontender Results & Data Vital Signs (Past 12 Hours) Vital Signs Temp Pulse Pulse Pulse Resp BP BP 12/16/24 13:38 98.1 F 84 16 137/74 12/16/24 11:10 97.9 F 62 17 122/65 12/16/24 08:00 105 H 12/16/24 08:00 12/16/24 07:49 98.1 F 92 H 17 122/78 12/16/24 03:37 97.5 F L 91 H 20 106/70 Pulse Ox O2 Del Method 12/16/24 13:38 97 Room Air 12/16/24 11:10 93 Room Air 12/16/24 08:00 12/16/24 08:00 Room Air 12/16/24 07:49 96 Room Air 12/16/24 03:37 95 Room Air Diagnostic Findings ABDOMEN AND PELVIS CT WITH IV CONTRAST CT DOSE: 1515.88 mGy.cm HISTORY: ab distension TECHNIQUE: Multiaxial CT images of the abdomen and pelvis were performed following the IV administration of 90 cc of Optiray, A dose lowering technique was utilized adhering to the principles of ALARA. COMPARISON STUDY: None FINDINGS: There is a 1.2 cm pulmonary nodule lateral right lung base. ABDOMEN: There are multiple masses scattered at the liver measuring up to 5 cm which have morphology suspicious for liver metastatic disease. There is a tiny gallstone without evidence of acute cholecystitis. Spleen, pancreas, and adrenal glands are unremarkable. There are a few small cysts at the right kidney. No abdominal aortic aneurysm. Pelvis: Prostate is enlarged and indents the urinary bladder base. Urinary bladder is mildly distended. There is a calcification centrally in the prostate measuring approximately 1 cm. There is a mass at the distal descending colon measuring 5 cm greatest axial dimension by 5 cm craniocaudad. There are a few adjacent abnormal lymph nodes medial to the mass measuring up to 3 cm. There are a few enlarged periaortic lymph nodes measuring up to 2 cm series 3 image 168. No other bowel inflammation or obstruction seen. Normal appendix. No free fluid, free air, or abscess. Osseous structures: There are mild degenerative changes at the lumbar spine and hips. IMPRESSION: 1. Colon cancer at the distal descending colon with liver and lymph node metastatic disease. 2. No bowel obstruction or perforation. No ascites. 3. Nonspecific 1.2 cm pulmonary nodule at the right lung base. Differential diagnosis includes pulmonary metastatic disease and infectious/inflammatory nodule. 4. No other acute findings seen. Otherwise as described. ACT 112: Positive. There are findings on this exam that require communication between the performing entity and the patient following Patient Test Result Information Act ([place] Act 112) guidelines. The above report was generated using voice recognition software. It may contain grammatical, syntax or spelling errors. Electronically signed by: Brice Hernandez M.D. 12/14/2024 3:[address] CHEST WITH CONTRAST: HISTORY: Metastasis workup. TECHNIQUE: CT of the chest was obtained with intravenous contrast. Coronal and sagittal reformats were created. IV CONTRAST: 100 mL of OMNIPAQUE 300 COMPARISON: CT abdomen and pelvis from the same day is not viewable in our system. FINDINGS: LOWER NECK: 6 mm left thyroid nodule. LYMPH NODES: Mildly enlarged mediastinal and hilar lymph nodes are seen. For example, there is a right hilar lymph node measuring 1.0 cm (series 2, image 32) CARDIOVASCULAR: Cardiac size is enlarged. Coronary artery and valvular calcifications are noted. No aortic aneurysm. LUNGS: The trachea and central bronchi are widely patent. No focal confluent infiltrates are seen. There are scattered pulmonary nodules in both lungs. For example, there is a right basilar nodule measuring 9 mm (series 2, image 43). There is a left upper lobe nodule measuring 6 mm (image 19) PLEURA: There are no pleural effusions. There is no pneumothorax. UPPER ABDOMEN: No acute findings. OSSEOUS STRUCTURES: Please refer to separately dictated CT abdomen and pelvis report from the same day. IMPRESSION: Bilateral pulmonary nodules measuring up to 9 mm are likely pulmonary metastases. Mildly prominent mediastinal and hilar lymph nodes as above Electronically signed by Matt Alcantar 12-14-2024 7:09 PM PG Care Time/CCT Total # of Minutes Spent Total Time Spent with Patient: Total time spent is greater than 50% in coordination of care (as documented) at patient's floor/unit and/or counseling patient: Coding Level of Care Code 99417 INT INP/OBS CARE 2/55MIN Diagnoses Colonic mass K63.89
--- NOTE | 2024-12-16 15:19 | Anesthesiology Progress Note ---
Date of Service December 16, 2024 Anesthesia Post Procedure Vital Signs Vital Signs: Temp Pulse Pulse Pulse Resp BP BP 12/16/24 15:08 78 16 150/86 H 12/16/24 14:53 74 16 153/82 H 12/16/24 14:38 81 16 130/77 12/16/24 13:38 36.7 C 84 16 137/74 12/16/24 11:10 36.6 C 62 17 122/65 12/16/24 08:00 105 H 12/16/24 08:00 12/16/24 07:49 36.7 C 92 H 17 122/78 12/16/24 03:37 36.4 C L 91 H 20 106/70 12/15/24 23:36 36.3 C L 83 20 118/68 12/15/24 22:00 86 12/15/24 19:39 36.6 C 78 20 132/68 12/15/24 16:33 36.3 C L 83 20 177/79 H Pulse Ox O2 Del Method 12/16/24 15:08 98 Room Air 12/16/24 14:53 97 Room Air 12/16/24 14:38 94 Room Air 12/16/24 13:38 97 Room Air 12/16/24 11:10 93 Room Air 12/16/24 08:00 12/16/24 08:00 Room Air 12/16/24 07:49 96 Room Air 12/16/24 03:37 95 Room Air 12/15/24 23:36 98 Room Air 12/15/24 22:00 12/15/24 19:39 96 Room Air 12/15/24 16:33 97 Room Air Transfer of Care Handoff Completed per policy Notes Mental Status: alert / awake / arousable Patient Amnestic to Procedure: Yes Nausea / Vomiting: adequately controlled Pain: adequately controlled Airway Patency, RR, SpO2: stable & adequate BP & HR: stable & adequate Hydration State: stable & adequate Anesthetic Complications: no major complications apparent
[2024-12-16 15:37] LABS: Folate (Folic Acid),Ser orPlas 19.75 ng/ml (>5.38)
[2024-12-16 15:38] LABS: Vitamin B12 629.0 pg/ml (180-914)
[2024-12-16] MEDS: LIDOCAINE 2% 2 ML VIAL/AMP(20MG/ML) INFIL ONE (16:10)
[2024-12-16] MEDS: ENDOSCOPIC MARKER 5 ML SYR TOP ONE (16:10)
[2024-12-16] MEDS: PROPOFOL IV EMULSION 10 MG/ML 20 ML VIAL IV ONE (16:10)
[2024-12-17 07:24] LABS: Hematocrit (blood only) 34.0 % (42.0-52.0); Hemoglobin 11.3 g/dl (14.0-18.0); Mean Corpuscular Hemoglobin 24.1 pg (25.0-34.0); Mean Corpuscular Volume 72.5 fL (80.0-100.0); Platelet Count 339 K/uL (130-400); RDW Standard Deviation 44.6 fL (36.4-46.3); Red Blood Count 4.69 M/uL (4.70-6.10); White Blood Count 8.51 K/ul (4.8-10.8)
[2024-12-17 07:46] LABS: Anion Gap 8.0 (3-11); Blood Urea Nitrogen 12.0 mg/dl (6-23); Calcium 9.1 mg/dl (8.6-10.3); Carbon Dioxide 23.0 mmol/L (21-32); Chloride 102.0 mmol/L (98-107); Creatinine Clr Calc Pharmacy 108.1 ml/min; Glucose 152.0 mg/dl (70-99(Fasting)); Magnesium 2.0 mg/dl (1.7-2.4); Potassium 3.8 mmol/L (3.5-5.1); Sodium 133.0 mmol/L (136-145)
--- NOTE | 2024-12-17 10:00 | Surgery Progress Note ---
Date of Service December 17, 2024 Assessment & Plan (1) Colon cancer metastasized to liver: (2) Colon cancer metastasized to lung: Plan This is a 59-year-old male with likely new diagnosis of metastatic colon cancer. He is not clinically obstructed at this time, I had a discussion with the patient, given that he likely has metastatic disease, oncologic resection will not cure him and may delay chemotherapy. Chemotherapy is likely indicated to treat the systemic disease process. Oncologic resection is indicated in this case if the patient was completely clinically obstructed or perforated or having severe abdominal pain. He does not have this at this time. I recommend expedited biopsy via interventional radiology of liver or lung to prove metastatic disease and heme-onc consult during this hospital admission to expedite systemic treatment. Continue with full liquid diet. Admission and Anticipated Discharge Date Admission Date: December 14, 2024 Subjective Patient is a 59-year-old male with recent initial colonoscopy. Patient was admitted to the hospital with ongoing abdominal pain and discomfort. Colonoscopy did reveal an endoscopically obstructing sigmoid colon mass, concerning for malignancy. Biopsies were obtained. Patient's CAT scan of his chest abdomen and pelvis also did show likely liver and lung metastasis. His CEA is elevated at 300. The patient himself denies complete obstruction, he is passing some gas and some bowel movements and denies abdominal pain. Review of Systems Review of Systems: All systems reviewed & are unremarkable except as noted in HPI & below Physical Exam Constitutional: WD/WN, vitals as above Eyes: PERRL, conjunctivae normal, anicteric sclerae ENMT: external ear and nose normal, oropharynx normal Neck: trachea midline, no thyromegaly Respiratory: Normal respiratory effort Gastrointestinal (Abdomen): Soft, slightly distended, nontender Psychiatric: A+Ox3, euthymic affect Results & Data Vital Signs (Past 12 Hours) Vital Signs Temp Pulse Pulse Resp BP BP Pulse Ox 12/17/24 08:36 36.7 C 81 18 137/87 96 12/17/24 03:46 36.5 C 85 20 130/82 96 12/17/24 00:14 36.7 C 91 H 20 119/75 94 12/16/24 22:06 83 O2 Del Method 12/17/24 08:36 Room Air 12/17/24 03:46 Room Air 12/17/24 00:14 Room Air 12/16/24 22:06 PG Care Time/CCT Total # of Minutes Spent Total Time Spent with Patient: Total time spent is greater than 50% in coordination of care (as documented) at patient's floor/unit and/or counseling patient: Coding Level of Care Code 22549 SUB INP/OBS CARE 235MIN Diagnoses Colon cancer metastasized to liver C18.9; C78.7 Colon cancer metastasized to lung C18.9; C78.00
--- NOTE | 2024-12-17 10:09 | Gastroenterology Progress Note ---
Date of Service December 17, 2024 Assessment & Plan (1) Anemia: Plan: 59 year old male with history of nonischemic cardiomyopathy, chronic HFrEF (EF to 50%) HTN, dyslipidemia, T2DM, MELISSA, obesity, autism and others below admitted through the ED w/ abnormal imaging - concerning for a primary colon cancer (distal descending colon mass w/ liver lesions, lung nodules and lymph nodes, CEA>850) and LANCE S/P colonoscopy 12/17 w/ likely malignancy obstructing tumor at the sigmoid colon. Appreciate colorectal surgery consultation. Follow pathology when available. I spent a total of 40 minutes on the date of service in review of patient's record, and previously obtained information in person and appropriate medical visit, discussion and education of plan, with patient and/or caregiver, placing orders for tests/referral/procedures as medically necessary and documentation of pertinent clinical information in patient's medical records for their visit today. (2) Colonic mass: Admission and Anticipated Discharge Date Admission Date: December 14, 2024 Supervising Physician Co-Signing Physician Notes To confirm diagnosis of colon cancer. Seen by colorectal surgery. Manage currently is between surgery and oncology. GI signs off reconsult as needed. Reviewed patient. Biopsy should be available by tomorrow. Subjective Pt was seen and evaluated, chart reviewed. Discussed colonoscopy results. Verbalized understanding. Aware that pathology is still pending. Colonoscopy 2024: Likely malignant completely obstructing tumor in the sigmoid colon. Biopsied. Tattooed. Review of Systems Review of Systems: All other findings negative except as noted in HPI. Physical Exam Constitutional: WD/WN, vitals as above Respiratory: normal respiratory effort, lungs clear to auscultation Cardiovascular: Rate/Rhythm: regular rate and regular rhythm Gastrointestinal (Abdomen): normal bowel sounds, soft, nontender, no hepatosplenomegaly Results & Data Results & Data Vital Signs (Past 12 Hours) Vital Signs Temp Pulse Resp BP BP Pulse Ox O2 Del Method 12/17/24 08:36 98.1 F 81 18 137/87 96 Room Air 12/17/24 03:46 97.7 F 85 20 130/82 96 Room Air 12/17/24 00:14 98.1 F 91 H 20 119/75 94 Room Air Laboratory Results 12/17/24 12/16/24 12/14/24 Range/Units 07:01 Unknown 19:49 WBC 8.51 (4.8-10.8) K/ul RBC 4.69 L (4.70-6.10) M/uL Hgb 11.3 L (14.0-18.0) g/dl Hct 34.0 L (42.0-52.0) % MCV 72.5 L (80.0-100.0) fL MCH 24.1 L (25.0-34.0) pg MCHC 33.2 (32.0-36.0) g/dL RDW Std Deviation 44.6 (36.4-46.3) fL RDW Coeff of Junito 17.2 H (11.5-14.5) % Plt Count 339 (130-400) K/uL MPV 8.8 L (9.4-12.4) fL Sodium 133 L (136-145) mmol/L Potassium 3.8 (3.5-5.1) mmol/L Chloride 102 (98-107) mmol/L Carbon Dioxide 23 (21-32) mmol/L Anion Gap 8 (3-11) BUN 12 (6-23) mg/dl Creatinine 0.89 (0.6-1.4) mg/dl Est Cr Clr Drug Dosing 108.1 ml/min eGFR 98.11 BUN/Creatinine Ratio 13.5 (10-20) Glucose 152 H (70-99(Fasting)) mg/dl Calcium 9.1 (8.6-10.3) mg/dl Phosphorus 2.9 (2.5-4.9) mg/dl Magnesium 2.0 (1.7-2.4) mg/dl CA 19-9 Antigen 2710 H (<34) U/mL CA 125 Antigen 8 (<35) U/mL Vitamin B12 629 (180-914) pg/ml Folate 19.75 (>5.38) ng/ml PG Care Time/CCT Total # of Minutes Spent Total Time Spent with Patient: Total time spent is greater than 50% in coordination of care (as documented) at patient's floor/unit and/or counseling patient: Coding Level of Care Code 11858 SUB INP/OBS CARE 2/35MIN Diagnoses Anemia D64.9 Colonic mass K63.89
--- NOTE | 2024-12-17 13:45 | Hospitalist Progress Note ---
Date of Service December 17, 2024 Assessment & Plan (1) Colonic mass: Plan 59-year-old male with PMH nonischemic cardiomyopathy, chronic HFrEF, most recent echo in 07/2024 with improved EF to 50%, HTN, dyslipidemia, DM II, MELISSA, obesity, autistic disorder presented to ER with c/o "abnormal labs" - elevated WBC of 13 and ongoing intermittent abdominal bloating and discomfort. Colonic mass Possible metastatic colon cancer Abnormal computed tomography of abdomen and pelvis: Patient presented to the hospital with abdominal discomfort, abdominal bloating, weight loss. CT abdomen/pelvis shows colon mass and distal descending colon with multiple liver masses and lymph node enlargement. CT chest shows bilateral pulmonary nodules measuring up to 9 mm CEA/ CA 19-9 elevated, AFP pending, Ca 125 wnl. s/p C-scope 12/16 - fungating completely obstructing mass in sigmoid colon. Mass was circumferential. Biopsies taken - f/u on biopsy result. GI on board, recommended colorectal Sx eval. Colorectal Sx on board, recs are full liq diet, onc eval and liver biopsy connie. D/w IR 12/17, they might be able to do liver biopsy early next week. Last aspirin dose 10/13 AM per pt's kandy Mays. Oncology consult placed, await recs. Anemia: Iron deficiency anemia, secondary to colon mass Received IV Venofer. Nl folate and b12 level repeat levels in 3 months. Nonischemic cardiomyopathy: Chronic Heart failure H/O HFrEF, most recent echo in 07/2024 with improved EF to 50% 07/20/2024 echo: EF: 50%, mild mitral regurgitation, aortic root mildly enlarged 05/31/2022 cardiac catheterization: Minimal nonobstructive CAD Clinically examines fairly euvolemic Continue home metoprolol, lisinopril, furosemide, spironolactone, atorvastatin Hold Aspirin Type 2 diabetes [id number] was found to be 7.0%; plan for dietary measures, lifestyle changes; hold off on additional meds at this time as patient is losing weight/has possibly newly diagnosed CA MELISSA (obstructive sleep apnea): CPAP HS DVT Prophylaxis- SCDS Full code Pt's brother Davon updated over the phone about C-scope findings and ongoing eval w/ colorectal sx and oncology. He voiced understanding and was agreeable to plan of care. Please note the above document was generated using voice recognition software. It may contain grammatical, syntax or spelling errors. Any formal questions or concerns about the content, text or information contained within the body of this dictation should be directly addressed to the provider for clarification Admission and Anticipated Discharge Date Admission Date: December 14, 2024 Subjective Patient seen and examined at bedside. He is comfortable; not in distress. Denies bloating, reports eating ok w/ no belly pain. Denies any pain or discomfort. Physical Exam Physical Exam: General: no distress, obese male Neck: supple, trachea midline Lungs: clear, no respiratory distress, no wheezing/rhonchi/rales CV: RRR, no murmur, no pretibial edema Abd:soft, non-tender Ext: no cyanosis, no calf tenderness Neuro: A&O x 3, no focal deficits noted, normal affect Skin: warm, dry Results & Data Results & Data Vital Signs (Past 12 Hours) Vital Signs Temp Pulse Resp BP BP Pulse Ox O2 Del Method 12/17/24 12:10 36.6 C 80 18 139/86 98 Room Air 12/17/24 08:36 36.7 C 81 18 137/87 96 Room Air 12/17/24 03:46 36.5 C 85 20 130/82 96 Room Air
[2024-12-18 07:52] LABS: Hematocrit (blood only) 36.8 % (42.0-52.0); Hemoglobin 11.7 g/dl (14.0-18.0); Mean Corpuscular Hemoglobin 23.3 pg (25.0-34.0); Mean Corpuscular Volume 73.2 fL (80.0-100.0); Platelet Count 364 K/uL (130-400); RDW Standard Deviation 44.9 fL (36.4-46.3); Red Blood Count 5.03 M/uL (4.70-6.10); White Blood Count 9.73 K/ul (4.8-10.8)
[2024-12-18 08:11] LABS: Anion Gap 9.0 (3-11); Blood Urea Nitrogen 11.0 mg/dl (6-23); Calcium 9.2 mg/dl (8.6-10.3); Carbon Dioxide 23.0 mmol/L (21-32); Chloride 101.0 mmol/L (98-107); Creatinine Clr Calc Pharmacy 111.8 ml/min; Glucose 118.0 mg/dl (70-99(Fasting)); Potassium 4.0 mmol/L (3.5-5.1); Sodium 133.0 mmol/L (136-145)
--- NOTE | 2024-12-18 13:50 | Surgery Progress Note ---
Date of Service December 18, 2024 Assessment & Plan (1) Colon cancer metastasized to lung: (2) Colon cancer metastasized to liver: Plan: This is a very pleasant 59-year-old male with history of autism who was admitted with worsening abdominal pain. He had a CAT scan of his chest abdomen pelvis showing left-sided colon mass and likely metastatic disease to liver and lung. He underwent colonoscopy which showed a sigmoid colon mass, biopsies were obtained, pathology results do show sigmoid colon adenocarcinoma. The mass was not able to be passed endoscopically however the patient is clinically not obstructed. This was his first colonoscopy. His CEA is elevated in the 800s. He is to get biopsies of either his liver or lung on Saturday hopefully. Given that he is not obstructed and without abdominal pain or peritoneal signs, I recommend expedited treatment for metastatic disease should biopsies showed metastatic disease from the colon cancer. We will sign off for now, please reconsult if needed. Admission and Anticipated Discharge Date Admission Date: December 14, 2024 Subjective Patient continues to pass flatus and some bowel movements and is tolerating full liquid diet. He denies abdominal pain. Physical Exam Constitutional: WD/WN, vitals as above Eyes: PERRL, conjunctivae normal, anicteric sclerae ENMT: external ear and nose normal, oropharynx normal Neck: trachea midline, no thyromegaly Respiratory: Normal respiratory effort Gastrointestinal (Abdomen): Abdomen is soft and nondistended and nontender Psychiatric: A+Ox3, euthymic affect Results & Data Vital Signs (Past 12 Hours) Vital Signs Temp Pulse Pulse Resp BP Pulse Ox O2 Del Method 12/18/24 11:28 36.8 C 81 18 116/75 96 Room Air 12/18/24 07:53 36.8 C 81 18 123/75 94 Room Air 12/18/24 07:43 76 12/18/24 02:44 36.6 C 83 17 111/68 95 Room Air PG Care Time/CCT Total # of Minutes Spent Total Time Spent with Patient: Total time spent is greater than 50% in coordination of care (as documented) at patient's floor/unit and/or counseling patient: Coding Level of Care Code 51438 SUB INP/OBS CARE 2/35MIN Diagnoses Colon cancer metastasized to lung C18.9; C78.00 Colon cancer metastasized to liver C18.9; C78.7
--- NOTE | 2024-12-18 15:21 | Hospitalist Progress Note ---
Date of Service December 18, 2024 Assessment & Plan (1) Colonic mass: Plan 59-year-old male with PMH nonischemic cardiomyopathy, chronic HFrEF, most recent echo in 07/2024 with improved EF to 50%, HTN, dyslipidemia, DM II, MELISSA, obesity, autistic disorder presented to ER with c/o "abnormal labs" - elevated WBC of 13 and ongoing intermittent abdominal bloating and discomfort. Colonic mass Possible metastatic colon cancer Abnormal computed tomography of abdomen and pelvis: Patient presented to the hospital with abdominal discomfort, abdominal bloating, weight loss. CT abdomen/pelvis shows colon mass and distal descending colon with multiple liver masses and lymph node enlargement. CT chest shows bilateral pulmonary nodules measuring up to 9 mm CEA/ CA 19-9 elevated, AFP pending, Ca 125 wnl. s/p C-scope 12/16 - fungating completely obstructing mass in sigmoid colon. Mass was circumferential. Biopsies taken - f/u on biopsy result.--> resulted adenocarcinoma GI on board, recommended colorectal Sx eval. Colorectal Sx on board, recs are full liq diet, onc eval and liver biopsy connie. D/w IR 12/17, they might be able to do liver biopsy early next week. Last aspirin dose 1013 AM per pt's kandy Mays. Oncology consult placed, await recs. Pt denies bloating, tolerating full liq diet and is moving bowel, so will adv to low fiber diet. Anemia: Iron deficiency anemia, secondary to colon mass Received IV Venofer. Nl folate and b12 level repeat levels in 3 months. Nonischemic cardiomyopathy: Chronic Heart failure H/O HFrEF, most recent echo in 07/2024 with improved EF to 50% 07/20/2024 echo: EF: 50%, mild mitral regurgitation, aortic root mildly enlarged 05/31/2022 cardiac catheterization: Minimal nonobstructive CAD Clinically examines fairly euvolemic Continue home metoprolol, lisinopril, furosemide, spironolactone, atorvastatin Hold Aspirin Type 2 diabetes [id number] was found to be 7.0%; plan for dietary measures, lifestyle changes; hold off on additional meds at this time as patient is losing weight/has possibly newly diagnosed CA MELISSA (obstructive sleep apnea): CPAP HS DVT Prophylaxis- SCDS Full code Pt's brother Davon updated over the phone 12/17 about C-scope findings and ongoing eval w/ colorectal sx and oncology. He voiced understanding and was agreeable to plan of care. Please note the above document was generated using voice recognition software. It may contain grammatical, syntax or spelling errors. Any formal questions or concerns about the content, text or information contained within the body of this dictation should be directly addressed to the provider for clarification Admission and Anticipated Discharge Date Admission Date: December 14, 2024 Subjective Patient seen and examined at bedside. He is comfortable; not in distress. Denies bloating, reports eating ok w/ no belly pain. Denies any pain or discomfort. reports moving bowels. will adv to low fiber diet. Physical Exam Physical Exam: General: no distress, obese male Neck: supple, trachea midline Lungs: clear, no respiratory distress, no wheezing/rhonchi/rales CV: RRR, no murmur, no pretibial edema Abd:soft, non-tender Ext: no cyanosis, no calf tenderness Neuro: A&O x 3, no focal deficits noted, normal affect Skin: warm, dry Results & Data Results & Data Vital Signs (Past 12 Hours) Vital Signs Temp Pulse Pulse Resp BP Pulse Ox O2 Del Method 12/18/24 11:28 36.8 C 81 18 116/75 96 Room Air 12/18/24 07:53 36.8 C 81 18 123/75 94 Room Air 12/18/24 07:43 76
--- NOTE | 2024-12-18 17:29 | Oncology Consultation ---
Date of Consultation December 18, 2024 Assessment & Plan (1) Colon cancer metastasized to lung: (2) Colon cancer metastasized to liver: Plan -Metastatic colon cancer with goals of treatment to prolong life and improve symptoms. Awaiting BRAF/FRANK status. Outpatient follow up to discuss treatment options -Consider palliative care involvement inpatient/outpatient to discuss goals of care History of Present Illness Reason for Consultation: Colon cancer Attending Physician: Davis Ramos MD History of Present Illness 59 year old gentleman admitted to [facility] with abnormal outpatient labs and GI symptoms. Imaging revealed colon mass with liver, lymph nodes and lung metastases. Colonoscopy showed nearly obstructing sigmoid colon mass with biopsy revealing adenocarcinoma of the colon. CEA is greater than 850 Allergies Allergy/AdvReac Type Severity Reaction Status Date / Time No Known Allergies Allergy Verified 12/16/24 13:38 Home Medications Medication Instructions Recorded Confirmed Type aspirin 81 mg tablet,delayed 81 mg PO QAM #30 tabs 06/01/22 12/14/24 Rx release atorvastatin 10 mg tablet 10 mg PO QAM #30 tabs 06/01/22 12/14/24 Rx furosemide 20 mg tablet (Lasix) 20 mg PO QAM #30 tabs 06/01/22 12/14/24 Rx lisinopril 2.5 mg tablet 2.5 mg PO QAM #30 tabs 06/01/22 12/14/24 Rx metoprolol succinate 25 mg 12.5 mg (1/2 x 25 mg) PO QAM #30 06/01/22 12/14/24 Rx tablet,extended release 24 hr tabs spironolactone 25 mg tablet 12.5 mg (1/2 x 25 mg) PO QAM #30 06/01/22 12/14/24 Rx tabs ascorbic acid (vitamin C) 250 mg 250 mg PO DAILY 12/14/24 12/14/24 History tablet (Vitamin C) famotidine 10 mg tablet 10 mg PO BID 12/14/24 12/14/24 History potassium chloride 10 mEq 10 meq PO DAILY 12/14/24 12/14/24 History capsule,extended release Patient History Medical History Electrocardiogram showing normal QRS interval No pertinent past medical history Surgical History History of cardiac catheterization 2022 Family History Other Coronary heart disease Hx of heart bypass surgery Prostate cancer Social History Smoking Status: Never smoker Second Hand Exposure: No; Do You Dip or Chew Tobacco: No; Hx Alcohol Use: No Hx Substance Use: No Preferred Language: Turkmen Communication Ability: Effective Journeyman Level Acoustic Analyst Required: No Beliefs That Will Affect Care: None marital status: Current Living Situation: Boarding Home Current Living Situation Comment: [facility] Feels Safe at Home: Yes Assistive Devices: CPAP and Glasses Results & Data Vital Signs (Past 12 Hours) Vital Signs Temp Pulse Pulse Resp BP Pulse Ox O2 Del Method 12/18/24 16:58 91 H 12/18/24 15:15 37.0 C 87 18 100/65 96 Room Air 12/18/24 11:28 36.8 C 81 18 116/75 96 Room Air 12/18/24 07:53 36.8 C 81 18 123/75 94 Room Air 12/18/24 07:43 76
[2024-12-19 07:57] LABS: Hematocrit (blood only) 37.3 % (42.0-52.0); Hemoglobin 12.0 g/dl (14.0-18.0); Mean Corpuscular Hemoglobin 23.6 pg (25.0-34.0); Mean Corpuscular Volume 73.4 fL (80.0-100.0); Platelet Count 390 K/uL (130-400); RDW Standard Deviation 44.9 fL (36.4-46.3); Red Blood Count 5.08 M/uL (4.70-6.10); White Blood Count 9.27 K/ul (4.8-10.8)
[2024-12-19 08:11] LABS: Anion Gap 9.0 (3-11); Blood Urea Nitrogen 13.0 mg/dl (6-23); Calcium 9.3 mg/dl (8.6-10.3); Carbon Dioxide 23.0 mmol/L (21-32); Chloride 102.0 mmol/L (98-107); Creatinine Clr Calc Pharmacy 98.8 ml/min; Glucose 122.0 mg/dl (70-99(Fasting)); Potassium 4.1 mmol/L (3.5-5.1); Sodium 134.0 mmol/L (136-145)
--- NOTE | 2024-12-19 13:25 | Hospitalist Progress Note ---
Date of Service December 19, 2024 Assessment & Plan (1) Colonic mass: Plan 59-year-old male with PMH nonischemic cardiomyopathy, chronic HFrEF, most recent echo in 07/2024 with improved EF to 50%, HTN, dyslipidemia, DM II, MELISSA, obesity, autistic disorder presented to ER with c/o "abnormal labs" - elevated WBC of 13 and ongoing intermittent abdominal bloating and discomfort. Colonic mass Possible metastatic colon cancer Abnormal computed tomography of abdomen and pelvis: Patient presented to the hospital with abdominal discomfort, abdominal bloating, weight loss. CT abdomen/pelvis shows colon mass and distal descending colon with multiple liver masses and lymph node enlargement. CT chest shows bilateral pulmonary nodules measuring up to 9 mm CEA/ CA 19-9 elevated, AFP pending, Ca 125 wnl. s/p C-scope 12/16 - fungating completely obstructing mass in sigmoid colon. Mass was circumferential. Biopsies taken - f/u on biopsy result.--> resulted adenocarcinoma GI on board, recommended colorectal Sx eval. Colorectal Sx on board, recs are onc eval and liver biopsy connie. D/w IR 12/17, they might be able to do liver biopsy early next week. Last aspirin dose 10/13 AM per pt's kandy Mays. Oncology evaled, OP f/u to discuss Rx options, palliative involvement. Pt denies bloating, tolerating low fibe diet and is moving bowel. Pt's family states difficulty setting him up w/ OP appointments, hence would like to get biopsy done as IP. Anemia: Iron deficiency anemia, secondary to colon mass Received IV Venofer. Nl folate and b12 level repeat levels in 3 months. Nonischemic cardiomyopathy: Chronic Heart failure H/O HFrEF, most recent echo in 07/2024 with improved EF to 50% 07/20/2024 echo: EF: 50%, mild mitral regurgitation, aortic root mildly enlarged 05/31/2022 cardiac catheterization: Minimal nonobstructive CAD Clinically examines fairly euvolemic Continue home metoprolol, lisinopril, furosemide, spironolactone, atorvastatin Hold Aspirin Type 2 diabetes [id number] was found to be 7.0%; plan for dietary measures, lifestyle changes; hold off on additional meds at this time as patient is losing weight/has possibly newly diagnosed CA MELISSA (obstructive sleep apnea): CPAP HS DVT Prophylaxis- SCDS Full code Pt's brother Davon updated over the phone 12/19, they want liver biopsy done as IP. Please note the above document was generated using voice recognition software. It may contain grammatical, syntax or spelling errors. Any formal questions or concerns about the content, text or information contained within the body of this dictation should be directly addressed to the provider for clarification Admission and Anticipated Discharge Date Admission Date: December 14, 2024 Subjective Patient seen and examined at bedside. He is comfortable; not in distress. Denies bloating, reports eating ok w/ no belly pain. Denies any pain or discomfort. reports moving bowels. tolerating low fiber diet. Physical Exam Physical Exam: General: no distress, obese male Neck: supple, trachea midline Lungs: clear, no respiratory distress, no wheezing/rhonchi/rales CV: RRR, no murmur, no pretibial edema Abd:soft, non-tender Ext: no cyanosis, no calf tenderness Neuro: A&O x 3, no focal deficits noted, normal affect Skin: warm, dry Results & Data Results & Data Vital Signs (Past 12 Hours) Vital Signs Temp Pulse Resp BP BP Pulse Ox O2 Del Method 12/19/24 12:16 36.4 C L 84 16 131/75 96 Room Air 12/19/24 08:04 36.5 C 83 16 112/78 95 Room Air 12/19/24 02:39 36.4 C L 85 16 111/65 96 Room Air
[2024-12-20 07:45] LABS: Anion Gap 8.0 (3-11); Blood Urea Nitrogen 18.0 mg/dl (6-23); Calcium 9.5 mg/dl (8.6-10.3); Carbon Dioxide 24.0 mmol/L (21-32); Chloride 101.0 mmol/L (98-107); Creatinine Clr Calc Pharmacy 90.1 ml/min; Glucose 116.0 mg/dl (70-99(Fasting)); Potassium 4.2 mmol/L (3.5-5.1); Sodium 133.0 mmol/L (136-145)
--- NOTE | 2024-12-20 13:29 | Hospitalist Progress Note ---
Date of Service December 20, 2024 Assessment & Plan (1) Colonic mass: Plan 59-year-old male with PMH nonischemic cardiomyopathy, chronic HFrEF, most recent echo in 07/2024 with improved EF to 50%, HTN, dyslipidemia, DM II, MELISSA, obesity, autistic disorder presented to ER with c/o "abnormal labs" - elevated WBC of 13 and ongoing intermittent abdominal bloating and discomfort. Colonic mass Possible metastatic colon cancer Abnormal computed tomography of abdomen and pelvis: Patient presented to the hospital with abdominal discomfort, abdominal bloating, weight loss. CT abdomen/pelvis shows colon mass and distal descending colon with multiple liver masses and lymph node enlargement. CT chest shows bilateral pulmonary nodules measuring up to 9 mm CEA/ CA 19-9 elevated, AFP pending, Ca 125 wnl. s/p C-scope 12/16 - fungating completely obstructing mass in sigmoid colon. Mass was circumferential. Biopsies taken - f/u on biopsy result.--> resulted adenocarcinoma GI on board, recommended colorectal Sx eval. Colorectal Sx on board, recs are onc eval and liver biopsy connie. D/w IR 12/17, they might be able to do liver biopsy early next week. Last aspirin dose 10/13 AM per pt's kandy Mays. Oncology evaled, OP f/u to discuss Rx options, palliative involvement. Pt denies bloating, tolerating low fiber diet and is moving bowel. Pt's family states difficulty setting him up w/ OP appointments, hence would like to get biopsy done as IP. NPO midnight, IR biopsy liver ordered. Palliative as OP. Anemia: Iron deficiency anemia, secondary to colon mass Received IV Venofer. Nl folate and b12 level repeat levels in 3 months. Nonischemic cardiomyopathy: Chronic Heart failure H/O HFrEF, most recent echo in 07/2024 with improved EF to 50% 07/20/2024 echo: EF: 50%, mild mitral regurgitation, aortic root mildly enlarged 05/31/2022 cardiac catheterization: Minimal nonobstructive CAD Clinically examines fairly euvolemic Continue home metoprolol, lisinopril, furosemide, spironolactone, atorvastatin Hold Aspirin Type 2 diabetes [id number] was found to be 7.0%; plan for dietary measures, lifestyle changes; hold off on additional meds at this time as patient is losing weight/has possibly newly diagnosed CA MELISSA (obstructive sleep apnea): CPAP HS DVT Prophylaxis- SCDS Full code Pt's brother Davon updated over the phone 12/19, they want liver biopsy done as IP. Please note the above document was generated using voice recognition software. It may contain grammatical, syntax or spelling errors. Any formal questions or concerns about the content, text or information contained within the body of this dictation should be directly addressed to the provider for clarification Admission and Anticipated Discharge Date Admission Date: December 14, 2024 Subjective Patient seen and examined at bedside. He is comfortable; not in distress. Denies bloating, reports eating ok w/ no belly pain. Denies any pain or discomfort. reports moving bowels. tolerating low fiber diet. Physical Exam Physical Exam: General: no distress, obese male Neck: supple, trachea midline Lungs: clear, no respiratory distress, no wheezing/rhonchi/rales CV: RRR, no murmur, no pretibial edema Abd:soft, non-tender Ext: no cyanosis, no calf tenderness Neuro: A&O x 3, no focal deficits noted, normal affect Skin: warm, dry Results & Data Results & Data Vital Signs (Past 12 Hours) Vital Signs Temp Pulse Pulse Resp BP BP Pulse Ox 12/20/24 11:40 36.7 C 66 16 123/78 94 12/20/24 08:02 37.1 C 76 16 128/78 94 12/20/24 07:30 76 12/20/24 02:51 36.6 C 85 17 122/79 93 O2 Del Method 12/20/24 11:40 Room Air 12/20/24 08:02 Room Air 12/20/24 07:30 12/20/24 02:51 Room Air
[2024-12-21 08:13] LABS: Hematocrit (blood only) 37.2 % (42.0-52.0); Hemoglobin 11.7 g/dl (14.0-18.0); Mean Corpuscular Hemoglobin 23.1 pg (25.0-34.0); Mean Corpuscular Volume 73.5 fL (80.0-100.0); Platelet Count 388 K/uL (130-400); RDW Standard Deviation 46.0 fL (36.4-46.3); Red Blood Count 5.06 M/uL (4.70-6.10); White Blood Count 9.67 K/ul (4.8-10.8)
[2024-12-21 08:37] LABS: Anion Gap 8.0 (3-11); Blood Urea Nitrogen 17.0 mg/dl (6-23); Calcium 9.2 mg/dl (8.6-10.3); Carbon Dioxide 25.0 mmol/L (21-32); Chloride 102.0 mmol/L (98-107); Creatinine Clr Calc Pharmacy 93.3 ml/min; Glucose 110.0 mg/dl (70-99(Fasting)); Potassium 4.1 mmol/L (3.5-5.1); Sodium 135.0 mmol/L (136-145)
--- NOTE | 2024-12-21 11:01 | Discharge Summary ---
Date of Service December 21, 2024 Admission HPI Per Admitting Provider Patient is 59-year-old male with PMH nonischemic cardiomyopathy, chronic HFrEF, most recent echo in 07/2024 with improved EF to 50%, HTN, dyslipidemia, DM II, MELISSA, obesity, autistic disorder presented to ER with c/o "abnormal labs". History obtained from patient, outpatient and inpatient chart review. History [facility] hospitalization on 05/30/2022-06/01/2022 for newly diagnosed acute HFrEF, nonischemic cardiomyopathy. Per outpatient chart review patient seen 12/13/24 (yesterday) at urgent care for "bubbling" abdomen and pressure, possible heartburn. Was started on famotidine for possible heartburn and labs were orde red. Labs were drawn was found to have WBC: 13, Hgb: 12.8 and was referred to ER today for further evaluation. Per patient for past couple of years having abdominal bloating and intermittent "bubbling" and pressure type sensation more to left side of abdomen. States recently having some sharp pains associated with this but seems to resolve after having BM or feels like "bubble pop" and sensation eases. Last week started with indigestion which is new. He tried Pepto-Bismol once with some relief. He states a couple of times over the past 2 years had episode of some reddish coloration in his stool. States possibly once had episode of melena. He states has had gradual weight loss but is unable to quantify amount or time frame. Denies fever/chills, diaphoresis, N/V/D/C, HENRY, dizziness, syncope, vision changes, neck pain, CP, SOB, orthopnea, palpitations, cough, sore throat, rhinorrhea, paresthesias, weakness, extremity edema, rashes, dysuria, hematuria, urinary frequency, urinary retention, night sweats. No history colonoscopy. FH prostate CA. 108.7 kg on 04/21/24 per outpatient cardiology note. 111 kg on 04/09/23 outpatient PCP note Admission Exam Per Admitting Provider General: no distress, obese male Head: normocephalic, atraumatic Eyes: conjunctiva non-injected, anicteric ENT: normal inspection external ears, nose, mucous membranes moist Neck: supple, trachea midline Lungs: clear, no respiratory distress, no wheezing/rhonchi/rales CV: RRR, no murmur, no pretibial edema Abd:+protuberant, normal BS, soft, non-tender to palpation Ext: no cyanosis, no calf tenderness Neuro: A&O x 3, no focal deficits noted, normal affect Skin: warm, dry Principal Diagnosis Colonic mass Possible metastatic colon cancer Abnormal computed tomography of abdomen and pelvis Anemia Discharge Exam General: no distress, obese male Neck: supple, trachea midline Lungs: clear, no respiratory distress, no wheezing/rhonchi/rales CV: RRR, no murmur, no pretibial edema Abd:soft, non-tender Ext: no cyanosis, no calf tenderness Neuro: A&O x 3, no focal deficits noted, normal affect Skin: warm, dry Discharge Data Allergies Allergy/AdvReac Type Severity Reaction Status Date / Time No Known Allergies Allergy Verified 12/16/24 13:38 Consultations 12/14/24 15:48 ED Decision to Admit Stat 12/14/24 18:37 Consult Gastroenterology Routine 12/16/24 14:35 Consult General Surgery Routine 12/17/24 13:13 Consult Oncology Routine Procedures Performed Operation Date: 12/16/24 16:45 Actual Procedures p Colonoscopy Biopsy Cytology - Jak Michael MD Ordered Studies 12/14/24 14:18 CT abd pelvis IV con only Stat 12/14/24 16:40 CT chest diagnostic w con Urgent 12/21/24 08:[address] Routine Hospital Course (1) Colonic mass: Plan 59-year-old male with PMH nonischemic cardiomyopathy, chronic HFrEF, most recent echo in 07/2024 with improved EF to 50%, HTN, dyslipidemia, DM II, MELISSA, obesity, autistic disorder presented to ER with c/o "abnormal labs" - elevated WBC of 13 and ongoing intermittent abdominal bloating and discomfort. Colonic mass Possible metastatic colon cancer Abnormal computed tomography of abdomen and pelvis: Patient presented to the hospital with abdominal discomfort, abdominal bloating, weight loss. CT abdomen/pelvis shows colon mass and distal descending colon with multiple liver masses and lymph node enlargement. CT chest shows bilateral pulmonary nodules measuring up to 9 mm CEA/ CA 19-9 elevated, AFP pending, Ca 125 wnl. s/p C-scope 12/16 - fungating completely obstructing mass in sigmoid colon. Mass was circumferential. Biopsies taken - f/u on biopsy result.--> resulted adenocarcinoma GI on board, recommended colorectal Sx eval. Colorectal Sx evaled, recs are onc eval and liver biopsy connie. D/w IR 12/17, they might be able to do liver biopsy early next week. D/w IR 12/21, can't do liver biopsy today, earliest would be Saturday Oncology evaled, OP f/u to discuss Rx options, palliative involvement. Patient is tolerating low fiber diet and is moving bowel. Patient denies any nausea, vomiting, abdominal pain, bloating. Discussed with patient's brother Davon over the phone regarding delayed liver biopsy schedule, we discussed about possibly getting in touch with oncology office as an outpatient and getting this test done as an outpatient, they are in agreement and would like the patient be discharged. Palliative as OP. Anemia: Iron deficiency anemia, secondary to colon mass Received IV Venofer. Nl folate and b12 level repeat levels in 3 months. Nonischemic cardiomyopathy: Chronic Heart failure H/O HFrEF, most recent echo in 07/2024 with improved EF to 50% 07/20/2024 echo: EF: 50%, mild mitral regurgitation, aortic root mildly enlarged 05/31/2022 cardiac catheterization: Minimal nonobstructive CAD Clinically examines fairly euvolemic Continue home metoprolol, lisinopril, furosemide, spironolactone, atorvastatin Hold Aspirin For 5 days prior to scheduled liver biopsy. Type 2 diabetes [id number] was found to be 7.0%; plan for dietary measures, lifestyle changes; hold off on additional meds at this time as patient is losing weight/has possibly newly diagnosed CA MELISSA (obstructive sleep apnea): CPAP HS DVT Prophylaxis- SCDS Full code Follow-up with your primary care physician within a week time and likely you will need labs CBC/CMP/magnesium/phosphorus. Instructions regarding liver biopsy and aspirate aspirin: [facility] IR team will call you to schedule liver biopsy, hold aspirin for 5 days prior to scheduled liver biopsy. You were diagnosed with possible metastatic colon cancer with possible metastases to liver and lungs. Follow-up with oncology in 1 to 2 weeks time upon discharge. You will need liver biopsy as an outpatient, your oncology office will help set up the test. You will need aspirin held for 5 days prior to the date of liver biopsy. You will benefit from palliative care as an outpatient, coordinate with your PCP office to set up the referral. You received IV iron for anemia, you will need repeat iron/folate/B12 levels done in about 3 months time, coordinate with your PCP office to set up the test. Continue with low fiber diet upon discharge, if you have increasing belly distention/pain/nausea/bilious emesis/no bowel or gas for several days, report to emergency immediately. You were diagnosed with type 2 diabetes mellitus with A1c of 7.0, you were alsp diagnosed with cancer and losing weight, no new medication has been prescribed. Recommend that you follow-up with your PCP closely for ongoing monitoring/management, you will need repeat A1c in 3 months time. Take your medications as prescribed. Please make sure that you are able to get your medications today by calling your pharmacy before you leave the hospital so that your treatment continuity is not broken. Please note the above document was generated using voice recognition software. It may contain grammatical, syntax or spelling errors. Any formal questions or concerns about the content, text or information contained within the body of this dictation should be directly addressed to the provider for clarification Home Health Attestation I certify that this patient is under my care and that I, or a physicians press assistant and feeder working with me, had a face to-face encounter that meets the home health [id number]-[id number] encounter requirements with this patient. The encounter with the patient was in whole, or in part, for the following medical condition, which is the primary reason for home health care (list medical condition): I certify that, based on my findings, the following services are medically necessary home health services: My clinical findings support the need for the above services because: Further, I certify that my clinical findings support that this patient is homebound (i.e. absences from home require considerable and taxing effort and are for medical reasons or gnosticist services or infrequently or of short duration when for other reasons) because: Certification for Home Health Services: Based on the above findings, I certify that this patient is confined to the home and needs intermittent fpc care, physical therapy and/or speech therapy or continues to need occupational therapy. The patient is under my care, and I have initiated the establishment of the plan of care. This patient will be followed by a physician who will periodically review the plan of care. Total Time Total Time Spent Total Time Spent (In Minutes): 35 Discharge Plan Discharge Items Patient Disposition: Home - Self-Care Reason For Visit: COLON MASS Discharge Diagnosis: Colonic mass Possible metastatic colon cancer Abnormal computed tomography of abdomen and pelvis Anemia Condition on Discharge: Good Activity: Resume your previous activity Non-emergency contact: Primary Care Provider Call non-emergency contact if: you have any medication questions and your symptoms worsen Follow-up/Referrals: Eduar Purcell MD [Primary Care Provider] - (Date & Time 12/29/2024 9:40 AM Provider: Eduar Purcell MD [facility] ) Kenya Puga MD [Physician] - Lorena Bradley MD [Surgeon] - Diet: Low Fiber Diet Texture: Dental soft (bite-sized) Addtl Attending Provider Instructions: Follow-up with your primary care physician within a week time and likely you will need labs CBC/CMP/magnesium/phosphorus. Instructions regarding liver biopsy and aspirate aspirin: [facility] IR team will call you to schedule liver biopsy, hold aspirin for 5 days prior to scheduled liver biopsy. You were diagnosed with possible metastatic colon cancer with possible metastases to liver and lungs. Follow-up with oncology in 1 to 2 weeks time upon discharge. You will need liver biopsy as an outpatient, your oncology office will help set up the test. You will need aspirin held for 5 days prior to the date of liver biopsy. You will benefit from palliative care as an outpatient, coordinate with your PCP office to set up the referral. You received IV iron for anemia, you will need repeat iron/folate/B12 levels done in about 3 months time, coordinate with your PCP office to set up the test. Continue with low fiber diet upon discharge, if you have increasing belly distention/pain/nausea/bilious emesis/no bowel or gas for several days, report to emergency immediately. You were diagnosed with type 2 diabetes mellitus with A1c of 7.0, you were alsp diagnosed with cancer and losing weight, no new medication has been prescribed. Recommend that you follow-up with your PCP closely for ongoing monitoring/management, you will need repeat A1c in 3 months time. Take your medications as prescribed. Please make sure that you are able to get your medications today by calling your pharmacy before you leave the hospital so that your treatment continuity is not broken. Pending Studies at Discharge: No Stand-Alone Forms: My [employer], Smoking Cessation Medications and DC Order Prescriptions: Continued atorvastatin 10 mg Tablet 10 mg PO QAM Qty: 30 0RF aspirin 81 mg Tablet,Delayed Release (Dr/Ec) 81 mg PO QAM Qty: 30 0RF spironolactone 25 mg Tablet 12.5 mg PO QAM Qty: 30 0RF metoprolol succinate 25 mg Tablet Extended Release 24 Hr 12.5 mg PO QAM Qty: 30 0RF furosemide [Lasix] 20 mg Tablet 20 mg PO QAM Qty: 30 0RF lisinopril 2.5 mg Tablet 2.5 mg PO QAM Qty: 30 0RF famotidine 10 mg Tablet 10 mg PO BID ascorbic acid (vitamin C) [Vitamin C] 250 mg Tablet 250 mg PO DAILY potassium chloride 10 mEq Capsule, Extended Release 10 meq PO DAILY Rx Instructions: ON [facility] MED LIST, UNABLE TO VERIFY WITH EXT MED HX. Discharge Orders: Discharge Order (Routine); Ordered 12/21/24 Ordered By: Davis Adame/Other Patient Handouts: Low-Fiber Diet, Prediabetes, 5 Steps for Eating Healthier Admission Data Admit Date/Time: 12/14/24 16:40 Attending Provider: Davis Ramos Admit Provider: El Stone Primary Care Provider: Eduar Purcell Other Providers: El Stone; Jak Michael; Lorena Bradley; Kenya Puga
[2024-12-21 11:37] VITALS: BP 119/82; PULSE 86; RESP 17; TEMP 97.8; O2SAT 94
== END 2024-12-21 12:57 | disposition home or self-care (01) | DRG 348 ==
LOC: ED 13:49 → 2W 16:40 → SUATTDRO 16:40 → 2W 17:53